=== PATIENT | female | born 1935 | race Caucasian/White ===

== ENCOUNTER 2017-10-06 14:00 | Outpatient (RCR) | payer MEDICARE, SELFPAY | END 2017-10-06 14:01 | disposition home or self-care (01) | LOC: PT 14:00 | PROVIDERS: PCP Emergency Medicine; Visit Provider Otolaryngology Otolaryngology/Facial Plastic Surgery | DX: R42 Dizziness and giddiness (principal) | CPT/HCPCS: 97110; 97140 ==

== ENCOUNTER → 2017-11-03 11:44 | Outpatient (REF) | payer MEDICARE, SELFPAY ==
[2017-11-03 13:58] LABS: Anion Gap 11.9 mEq/L (5-15); Blood Urea Nitrogen 11 mg/dL (7-18); Carbon Dioxide 30 mmol/L (21.0-32.0); Chloride 104 mmol/L (98-107); Creatinine,Serum 0.77 mg/dL (0.55-1.02); Estimated Glomerular Filt Rate 72 ml/min (>60); GFR (African American) 87 ML/MIN (>60); Glucose 94 mg/dL (74-106); Potassium 3.9 mmoL/L (3.5-5.1); Sodium 142 mmol/L (136-145)
== END ==
LOC: LAB 11:44
PROVIDERS: Visit Provider Emergency Medicine
DX: E78.5 Hyperlipidemia, unspecified (principal)
CPT/HCPCS: 80048

== ENCOUNTER → 2017-11-23 10:41 | Outpatient (REF) | payer MEDICARE, OTHER, SELFPAY | LOC: LAB 10:41 | PROVIDERS: Visit Provider Emergency Medicine | DX: R35.0 Frequency of micturition (principal) | CPT/HCPCS: 87086 ==

== ENCOUNTER → 2018-01-03 11:23 | Outpatient (REF) | payer MEDICARE, OTHER, SELFPAY ==
[2018-01-03 14:16] LABS: Basophils % 0.4 % (0.1-2.0); Eosinophils # 0.1 K/mm3 (0.0-0.4); Eosinophils % 2.9 % (0.1-12.0); Hematocrit 41.7 % (37.0-47.0); Hemoglobin 13.3 g/dL (12.2-16.2); Lymphocytes # 1.2 K/mm3 (0.7-4.5); Lymphocytes % 29.4 K/mm3 (10-50); Mean Corpuscular HGB Conc 31.8 g/dL (31.8-35.4); Mean Corpuscular Hemoglobin 29.6 pg (27.0-31.2); Mean Platelet Volume 9.8 fl (7.4-10.4); Monocytes # 0.3 K/mm3 (0.1-1.0); Monocytes % 7.5 % (1.7-9.3); Neutrophils # 2.5 K/mm3 (1.8-7.8); Neutrophils % 59.9 % (37.0-80.0); Platelet Count 160 K/mm3 (142-424); Red Blood Count 4.48 M/mm3 (4.20-5.40); Red Cell Distribution Width 13.5 % (11.5-17.5); White Blood Count 4.1 K/mm3 (4.8-10.8)
[2018-01-03 14:42] LABS: Alanine Aminotransferase 22 U/L (12-78); Albumin Level 3.5 gm/dL (3.4-5.0); Alkaline Phosphatase 79 U/L (46-116); Aspartate Amino Transferase 22 U/L (15-37); Bilirubin,Direct 0.1 mg/dL (0.0-0.2); Bilirubin,Indirect 0.5 mg/dL (0.0-0.9); Bilirubin,Total 0.6 mg/dL (0.2-1.0); Free T4 (Free Thyroxine) 1.44 ng/dl (0.76-1.46); Thyroid Stimulating Hormone 0.06 uIU/ml (0.358-3.740); Total Protein,Serum 7.2 gm/dL (6.4-8.2)
[2018-01-04 09:02] LABS: Vitamin D 25 Hydroxy 21.5 ng/mL (30.0-100.0)
== END ==
LOC: LAB 11:23
PROVIDERS: Visit Provider Emergency Medicine
DX: I16.1 Hypertensive emergency (principal); R07.9 Chest pain, unspecified; R53.1 Weakness; R30.0 Dysuria; E78.5 Hyperlipidemia, unspecified
CPT/HCPCS: 80076; 82652; 84439; 84443; 85025; 87086

== ENCOUNTER → 2018-03-28 11:08 | Outpatient (CLI) | payer MEDICARE, OTHER, SELFPAY ==
[2018-03-28 11:56] LABS: Basophils % 0.3 % (0.1-2.0); Eosinophils # 0.3 K/mm3 (0.0-0.4); Eosinophils % 4.6 % (0.1-12.0); Hematocrit 41.5 % (37.0-47.0); Hemoglobin 13.5 g/dL (12.2-16.2); Lymphocytes # 1.4 K/mm3 (0.7-4.5); Lymphocytes % 25.3 K/mm3 (10-50); Mean Corpuscular HGB Conc 32.5 g/dL (31.8-35.4); Mean Corpuscular Hemoglobin 29.7 pg (27.0-31.2); Mean Corpuscular Volume 91.5 fl (81-99); Mean Platelet Volume 8.4 fl (7.4-10.4); Monocytes # 0.3 K/mm3 (0.1-1.0); Monocytes % 5.5 % (1.7-9.3); Neutrophils # 3.5 K/mm3 (1.8-7.8); Neutrophils % 64.2 % (37.0-80.0); Platelet Count 185 K/mm3 (142-424); Red Blood Count 4.54 M/mm3 (4.20-5.40); Red Cell Distribution Width 13.3 % (11.5-17.5); White Blood Count 5.5 K/mm3 (4.8-10.8)
[2018-03-28 13:06] LABS: Erythrocyte Sedimentation Rate 48 mm/hr (0-30)
[2018-03-28 13:12] LABS: Alanine Aminotransferase 19 U/L (12-78); Albumin Level 3.4 gm/dL (3.4-5.0); Albumin/Globulin Ratio 0.9 (1.1-1.8); Alkaline Phosphatase 107 U/L (46-116); Anion Gap 9.9 mEq/L (5-15); Aspartate Amino Transferase 18 U/L (15-37); Bilirubin,Total 0.6 mg/dL (0.2-1.0); Blood Urea Nitrogen 10 mg/dL (7-18); Calcium 8.9 mg/dL (8.5-10.1); Carbon Dioxide 32 mmol/L (21.0-32.0); Chloride 105 mmol/L (98-107); Creatinine,Serum 0.79 mg/dL (0.55-1.02); Estimated Glomerular Filt Rate 70 ml/min (>60); GFR (African American) 85 ML/MIN (>60); Globulin 3.9 gm/dl (1.3-3.2); Glucose 121 mg/dL (74-106); Potassium 3.9 mmoL/L (3.5-5.1); Sodium 143 mmol/L (136-145); Thyroid Stimulating Hormone 0.94 uIU/ml (0.358-3.740); Total Protein,Serum 7.3 gm/dL (6.4-8.2)
[2018-03-29 13:26] LABS: Anti-Jo-1 <0.2 AI (0.0-0.9); Anti-Smith Antibody <0.2 AI (0.0-0.9); Antichromatin Antibodies <0.2 AI (0.0-0.9); Antiscleroderma-70 Antibodies <0.2 AI (0.0-0.9); RNP Antibodies 0.2 AI (0.0-0.9); Sjogren's Anti-SS-A <0.2 AI (0.0-0.9); Sjogren's Anti-SS-B <0.2 AI (0.0-0.9)
[2018-03-30 16:48] LABS: Anti-Centromere B Antibodies <0.2 AI (0.0-0.9); Anti-DNA (DS) Ab Qn <1 IU/mL (0-9); Folate 8.5 ng/mL (>3.0); Rapid Plasma Reagin Ab Titer Non Reactive (NonRea<1:1); Vitamin B12 >2000 pg/mL (232-1245)
== END ==
PROVIDERS: PCP Emergency Medicine; Visit Provider Specialist
DX: E85.4 Organ-limited amyloidosis (principal); I63.9 Cerebral infarction, unspecified; I68.0 Cerebral amyloid angiopathy; I99.8 Other disorder of circulatory system; R41.3 Other amnesia
CPT/HCPCS: 36415; 80053; 82607; 82746; 84443; 85025; 85651; 86225; 86235; 86592

== ENCOUNTER → 2018-04-13 15:35 | Outpatient (REF) | payer MEDICARE, OTHER, SELFPAY | LOC: LAB 15:35 | PROVIDERS: Visit Provider Nurse Practitioner Family | DX: N39.0 Urinary tract infection, site not specified (principal) | CPT/HCPCS: 87086 ==

== ENCOUNTER → 2018-04-19 08:38 | Outpatient (CLI) | payer MEDICARE, OTHER, SELFPAY ==
--- NOTE | 2018-04-19 08:40 | MR_ITS ---
MR angio head wo con HISTORY: Seizure, brain bleed, ITS.REASON: cva, cervical amyloid angiopathy ORDERING PHYSICIAN: Dalia Abdul MD PATIENT AGE: 82 years Comparison: None TECHNIQUE: 3-D kyct-hy-nntuvr sequences are performed without contrast. FINDINGS: No aneurysm or arteriovenous malformation is evident. Temporal parietal branches of the left artery are not demonstrated activity due to occlusion or very slow flow. The patient's old infarctions are right side. Single shot MRV is unremarkable. IMPRESSION: 1. No evidence of aneurysm or arterial venous malformation. 2. Nonvisualization of temporoparietal branches of the left middle cerebral artery which could be due to occlusion or very slow flow
--- NOTE | 2018-04-19 08:40 | MR_ITS ---
MR head/brain wo con HISTORY: Seizure disorder, history of stroke, history of brain bleed ITS.REASON: cva, cervical amyloid angiopathy ORDERING PHYSICIAN: Dalia Abdul MD PATIENT AGE: 82 years Comparison: 10/30/2017, 01/04/2014 TECHNIQUE: Standard multiplanar multiecho sequences are performed without contrast. FINDINGS: No midline shift, mass effect, intracranial hemorrhage, or hydrocephalus is evident. Moderate periventricular ischemic gliotic changes are noted. Encephalomalacia change is present in the right temporal lobe and in the right frontal lobe cystic encephalomalacia in the right frontal lobe medially. Diffusion-weighted images show no evidence of acute infarction.. The cerebellopontine angle, cerebellum, and brainstem are unremarkable. There is a small amount fluid in the mastoid sinuses on both sides. No paranasal sinus air-fluid level evident. IMPRESSION: 1. Atrophy with chronic ischemic gliotic changes with encephalomalacia change of the right frontal lobe and right temporal lobe 2. No acute intracranial findings. 3. Mild mastoid sinus disease
== END ==
PROVIDERS: PCP Emergency Medicine; Visit Provider Specialist
DX: E85.4 Organ-limited amyloidosis (principal); I63.9 Cerebral infarction, unspecified; I68.0 Cerebral amyloid angiopathy; I99.8 Other disorder of circulatory system; R41.3 Other amnesia
CPT/HCPCS: 70544; 70551

== ENCOUNTER → 2018-05-30 08:36 | Outpatient (CLI) | payer MEDICARE, OTHER, SELFPAY ==
--- NOTE | 2018-05-30 08:39 | CA_ITS ---
PROCEDURE: 2-D M-mode and color Doppler study INDICATIONS FOR THE TEST: Chest pain COPD Heart Murmur Tobacco Smoking Palpitations Fatigue Syncope Edema HypertensionXDiabetes Mellitus Rheumatic Fever SOB ZULETA Obesity HyperlipidemiaX Family History HD Additional History CAD,JAREK PATIENT INFORMATION HEIGHT: 60 WEIGHT:129 GENDER: Female B/P:168/75 2-D/M-MODE INTERPRETATION: 2-D MEASUREMENTS OBSERVED VALUES IN CMS Right Ventricular Dimension (RVDd) 2.7 Interventricular Septum (Thickness)(IVsd) .9 Left Ventricular Internal Dimensions(LVIDd) 4.6 Left Ventricular Posterior Wall (Thickness)(LVPWd) 1.0 Aortic Root 2.9 Aortic Cusp Separation 1.3 Left Atrial Dimensions (LAD) 3.3 2D 1. Left atrium is mildly enlarged, left ventricle is normal size, there is mild qualitative concentric left ventricular hypertrophy, visually estimated ejection fraction of 55% with no regional wall motion abnormality. 2. The right atrium and right ventricle are mildly enlarged with normal contractility. 3. The aortic valve is minimally thickened and fibrosed. 4. The mitral and tricuspid valve leaflets are minimally thickened. 5. The pulmonic valve is poorly visualized. 6. No significant pericardial effusion noted. DOPPLER INTERROGATION: Doppler interrogation of the aortic, mitral and tricuspid valvular presence of mild mitral and tricuspid regurgitation, tricuspid regurgitation jet velocity is inadequate for calculation of the right ventricular systolic pressure. Grade 1 diastolic dysfunction seen with tissue Doppler evidence of raised left atrial pressure. CONCLUSION: 1. Mildly enlarged left atrium, normal left ventricular size, mild concentric left ventricular hypertrophy, visually estimated ejection fraction 55% with no regional wall motion abnormality, grade 1 diastolic dysfunction seen with tissue Doppler evidence of raised left atrial pressure. 2. Mild mitral and tricuspid regurgitation 3. No significant pericardial effusion noted.
== END ==
PROVIDERS: PCP Emergency Medicine; Visit Provider Internal Medicine
DX: H91.93 Unspecified hearing loss, bilateral; I11.9 Hypertensive heart disease without heart failure; I25.10 Atherosclerotic heart disease of native coronary artery without angina pectoris; I61.9 Nontraumatic intracerebral hemorrhage, unspecified; Z95.5 Presence of coronary angioplasty implant and graft; E78.49 Other hyperlipidemia
CPT/HCPCS: 93306

== ENCOUNTER → 2018-05-31 18:13 | Outpatient (CLI) | payer MEDICARE, OTHER, SELFPAY | PROVIDERS: Visit Provider Nurse Practitioner Family | DX: N39.0 Urinary tract infection, site not specified (principal) | CPT/HCPCS: 87077; 87086; 87088; 87186 ==

== ENCOUNTER → 2018-07-26 20:15 | Outpatient (CLI) | payer MEDICARE, OTHER, SELFPAY | PROVIDERS: Visit Provider Urology | DX: N39.0 Urinary tract infection, site not specified (principal); R31.9 Hematuria, unspecified | CPT/HCPCS: 87086 ==

== ENCOUNTER → 2018-09-12 18:22 | Outpatient (CLI) | payer MEDICARE, OTHER, SELFPAY | PROVIDERS: Visit Provider Physician Assistant | DX: N39.0 Urinary tract infection, site not specified (principal) | CPT/HCPCS: 87086 ==

== ENCOUNTER → 2018-10-21 11:11 | Outpatient (CLI) | payer MEDICARE, OTHER, SELFPAY ==
--- NOTE | 2018-10-21 11:14 | NM_ITS ---
CARDIOLITE SPECT MYOCARDIAL PERFUSION LEXISCAN, REST AND STRESS: [facility] REVIEW QGS EF AND WALL MOTION EVALUATION: QPS - PERFUSION EVALUATION HISTORY: CAD DOSE: 10.17 mCi technetium 99m mibi intravenously at rest followed by 32.8 mCi technetium 99m mibi following the intravenous ministration of 0.4 mg of Lexiscan. Resting blood pressure is 217/112. Stress blood pressure 142/75. FINDINGS: Ejection fraction is calculated to be 67%. Uniform myocardial activity at both stress and rest gated images calculated ejection fraction of 67% with normal wall motion IMPRESSION: No scintigraphic evidence of Lexiscan-induced myocardial ischemia normal ejection fraction normal wall motion
--- NOTE | 2018-10-21 13:46 | HMH.ITSHM ---
Current Home Medications as stated by this patient Deedee Dhillon or business process representative. []ASPIRIN LEVETIRACETAM CARVEDILOL OXYBUTYNIN ATORVASTATIN DONEPEZIL LOSARTAN NITROGLYCERINE
== END ==
PROVIDERS: PCP Emergency Medicine; Visit Provider Internal Medicine Cardiovascular Disease
DX: G47.33 Obstructive sleep apnea (adult) (pediatric); H91.93 Unspecified hearing loss, bilateral; I11.9 Hypertensive heart disease without heart failure; I25.10 Atherosclerotic heart disease of native coronary artery without angina pectoris; I61.9 Nontraumatic intracerebral hemorrhage, unspecified; R06.00 Dyspnea, unspecified; R42 Dizziness and giddiness; R55 Syncope and collapse; Z95.5 Presence of coronary angioplasty implant and graft; E78.49 Other hyperlipidemia
CPT/HCPCS: 78452; 93017; A9502; J2785

== ENCOUNTER → 2018-11-11 09:18 | Outpatient (CLI) | payer MEDICARE, OTHER, SELFPAY ==
[2018-11-11 11:11] LABS: Anion Gap 12.7 mEq/L (5-15); Blood Urea Nitrogen 9 mg/dL (7-18); Calcium 8.9 mg/dL (8.5-10.1); Carbon Dioxide 30 mmol/L (21.0-32.0); Chloride 103 mmol/L (98-107); Creatinine,Serum 0.75 mg/dL (0.55-1.02); Estimated Glomerular Filt Rate 74 ml/min (>60); GFR (African American) 90 ML/MIN (>60); Glucose 104 mg/dL (74-106); Potassium 3.7 mmoL/L (3.5-5.1); Sodium 142 mmol/L (136-145)
== END ==
PROVIDERS: Visit Provider Internal Medicine Cardiovascular Disease
DX: E78.5 Hyperlipidemia, unspecified (principal); G47.33 Obstructive sleep apnea (adult) (pediatric); H91.90 Unspecified hearing loss, unspecified ear; I11.9 Hypertensive heart disease without heart failure; I25.10 Atherosclerotic heart disease of native coronary artery without angina pectoris; I61.9 Nontraumatic intracerebral hemorrhage, unspecified; Z95.5 Presence of coronary angioplasty implant and graft
CPT/HCPCS: 36415; 80048

== ENCOUNTER → 2018-12-13 18:21 | Outpatient (CLI) | payer MEDICARE, OTHER, SELFPAY | PROVIDERS: Visit Provider Nurse Practitioner Family | DX: N39.0 Urinary tract infection, site not specified (principal); R82.998 Other abnormal findings in urine | CPT/HCPCS: 87086 ==

== ENCOUNTER → 2019-03-31 16:49 | Outpatient (CLI) | payer MEDICARE, OTHER, SELFPAY | PROVIDERS: Visit Provider Emergency Medicine | DX: N39.0 Urinary tract infection, site not specified (principal) | CPT/HCPCS: 87086 ==

== ENCOUNTER → 2019-09-22 13:50 | Outpatient (CLI) | payer MEDICARE, OTHER, SELFPAY | PROVIDERS: Visit Provider Emergency Medicine | DX: N39.0 Urinary tract infection, site not specified (principal) | CPT/HCPCS: 87086 ==

== ENCOUNTER → 2020-01-16 16:13 | Outpatient (CLI) | payer MEDICARE, OTHER, SELFPAY ==
--- NOTE | 2020-01-16 16:36 | ECG_ITS ---
APPROVED REPORT Exam: Resting ECG HR:62 bpm ECG Measurements Heart Rate 62 AXES MI 210 P 43 QRSd 74 QRS -21 QT 466 T 43 QTc 472 <Conclusion> Sinus rhythm with marked sinus arrhythmia with 1st degree AV block Minimal voltage criteria for LVH, may be normal variant Prolonged QT Abnormal ECG Electronically signed by : Alex Cordova, 01/19/2020 17:13:52
[2020-01-16 16:52] LABS: Basophils % 0.4 % (0.1-2.0); Eosinophils # 0.2 K/mm3 (0.0-0.4); Eosinophils % 3.8 % (0.1-12.0); Hematocrit 38.4 % (37.0-47.0); Hemoglobin 13.2 g/dL (12.2-16.2); Lymphocytes # 2.1 K/mm3 (0.7-4.5); Lymphocytes % 39.7 % (10-50); Mean Corpuscular HGB Conc 34.2 g/dL (31.8-35.4); Mean Corpuscular Hemoglobin 31.4 pg (27.0-31.2); Mean Corpuscular Volume 91.9 fl (81-99); Mean Platelet Volume 8.8 fl (7.4-10.4); Monocytes # 0.3 K/mm3 (0.1-1.0); Monocytes % 5.1 % (1.7-9.3); Neutrophils # 2.7 K/mm3 (1.8-7.8); Platelet Count 198 K/mm3 (142-424); Red Blood Count 4.18 M/mm3 (4.20-5.40); Red Cell Distribution Width 13.4 % (11.5-17.5); White Blood Count 5.4 K/mm3 (4.8-10.8)
[2020-01-16 18:09] LABS: Anion Gap 11.4 mEq/L (5-15); Blood Urea Nitrogen 13 mg/dl (7-17); Calcium 9.5 mg/dl (8.4-10.2); Carbon Dioxide 34 mmol/L (22.0-30.0); Chloride 98 mmol/L (98-107); Estimated Glomerular Filt Rate 69 ml/min (>60); GFR (African American) 83 ML/MIN (>60); Glucose 108 mg/dl (74-100); Potassium 3.4 mmoL/L (3.5-5.1); Sodium 140 mmol/L (136-145)
[2020-01-16 20:06] LABS: Coronavirus 19 IgG Antibody Negative (Negative); Coronavirus 19 IgM Antibody Negative (Negative)
== END ==
PROVIDERS: Visit Provider Otolaryngology
DX: Z01.818 Encounter for other preprocedural examination (principal); C76.0 Malignant neoplasm of head, face and neck
CPT/HCPCS: 36415; 80048; 85025; 86328; 93005

== ENCOUNTER 2020-01-18 07:16 | Day surgery (SDC) | payer MEDICARE, OTHER, SELFPAY ==
[2020-01-18 08:14] VITALS: BMI 25.4
[2020-01-18 08:15] VITALS: BP 176/88; PULSE 90; RESP 20; TEMP 36.2; O2SAT 97
[2020-01-18 10:08] VITALS: BP 152/75; PULSE 55; RESP 16; TEMP 36.4; O2SAT 100
--- NOTE | 2020-01-18 10:14 | P.PN_ITS ---
[facility] Anesthesia Checklist - Patient Identification Patient Identification: Arm Band - Structural Data Admitted From: Home Planned Operative Procedure/s: excision of nose lesion Consent for Planned Operative Procedure(s) Verified: Yes Verified Documents: Surgical Consent, History and Physical - NPO Status Verified Time NPO: 00:00 - Additional verifications Anesthesia Reactions: No Hx Blood Transfusions: No Blood Transfusion Reaction: No - Airway Assessment C-Spine Mobility Assessed: Yes (mp2) TMJ Mobility Assessed: Yes - Neurological Assessment Level of Consciousness: Awake, Alert - Anesthesia Plan Anesthesia Risk discussed: Yes Anesthesia Plan: Verified ASA Class: III Anesthesia Type: MAC [facility] History I have reviewed the patient's past medical history: Yes Medical History: Reports:: Cancer (nose skin ca), Coronary Artery Disease, Cerebrovascular Accident, Hyperlipidemia, Hypertension, Transient Ischemic Attacks (TIA), Urinary Tract Infection Denies:: Diabetes Mellitus Type 1, Diabetes Mellitus Type 2, Internal Pacemaker, MRSA, Seizures *Have you ever received a pneumonia vaccine?: No *Have you received a flu vaccine this season?: No Other Medical History: Reports: Hypothyroidism, Thyroid Disease. Denies: Blood Transfusion Reaction Anesthesia experience/problems:: nac Laterality Cases: Bilateral: Arthroscopy Knee, Total Hip Replacement Other Surgeries: Yes: Angioplasty, Cardiac Catheterization, Colonoscopy, Coronary Stent, Ureter Stent, Other. No: Pacemaker Amputation: No Fractures: No - *Social History Last grade of school completed: High school graduate Smoking Status: Never smoker Alcohol Intake: never Alcohol Intake Frequency:: other Substance Use Type: denies use *Occupational Status:: retired Housing: house Household Members: none *Travel in the last 8 weeks: Inside the [place] Family Hx:: No significant family history
[2020-01-18 10:23] VITALS: BP 142/74; PULSE 54; RESP 16; O2SAT 99
[2020-01-18 10:38] VITALS: BP 138/68; PULSE 60; RESP 16; O2SAT 99
--- NOTE | 2020-01-18 15:29 | P.OP_ITS ---
Date of procedure: 01/18/20 Pre-op Diagnosis:: 1. 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 Excision of malignant neoplasm nose with tissue rearrangement geometric plastic repair Surgeon:: Drew Friend MD [employer] SUPERVISOR:: Javi Marrero Anesthesia: MAC Estimated blood loss (mL): 2 Operative findings:: same Operative note:: With patient under MAC type of anesthetic the face was prepped and draped the eyes were protected with Steri-Strips. The perilesional area was infiltrated with 2 cc of 2% lidocaine containing epinephrine. The Mike out measured 1.5 cm the mike out was incised and the lesion was excised and submitted. Inferior and inferior incisions were made and a tissue rearrangement Z-plasty repair was done with interrupted 4-0 nylon sutures a Dermabond dressing was applied and the patient was sent to recovery in good general condition. Condition: stable Disposition: PACU Complications:: none
== END 2020-01-18 10:38 | disposition home or self-care (01) ==
PROVIDERS: PCP Emergency Medicine; Visit Provider Otolaryngology
PROC: (CPT 14060; principal; 2020-01-18 10:30)
DX: C44.311 Basal cell carcinoma of skin of nose; I10 Essential (primary) hypertension; Z96.21 Cochlear implant status; Z85.828 Personal history of other malignant neoplasm of skin; I25.10 Atherosclerotic heart disease of native coronary artery without angina pectoris; E78.5 Hyperlipidemia, unspecified; Z86.73 Personal history of transient ischemic attack (TIA), and cerebral infarction without residual deficits; E03.9 Hypothyroidism, unspecified; Z96.649 Presence of unspecified artificial hip joint; Z95.818 Presence of other cardiac implants and grafts; Z79.82 Long term (current) use of aspirin; Z79.899 Other long term (current) drug therapy
CPT/HCPCS: 14060; 88305; 96374; 96375

== ENCOUNTER 2020-02-07 06:33 | Inpatient (IN) | payer MEDICARE, OTHER, SELFPAY ==
[2020-02-07] VITALS (12 sets, daily range): BP systolic 137–201; BP diastolic 76–106; PULSE 58–89; RESP 14–18; TEMP 36.7–37.4; O2SAT 92–99; BMI 20.9; BMI 27.1
--- NOTE | 2020-02-07 06:26 | ECG_ITS ---
APPROVED REPORT Exam: Resting ECG HR:57 bpm ECG Measurements Heart Rate 57 AXES LA 206 P 50 QRSd 74 QRS -14 QT 480 T 60 QTc 467 <Conclusion> Sinus bradycardia Otherwise normal ECG Electronically signed by : Alex Cordova, 02/10/2020 08:35:36
--- NOTE | 2020-02-07 06:36 | HMH.EDGENADL ---
ED Disposition Condition on Discharge: Good - Critical Care Critical Care Time: No <CarleyDonald - Filed: 02/07/20 08:08> Condition on Discharge: Good Time of Disposition: 09:49 (Admitted to Dr. Smith covering for Dr. Otero) <Donald Linder - Last Filed: 02/07/20 09:53> Clinical Impression: Abdominal pain, generalized, Small bowel obstruction, partial, HTN (hypertension) Disposition: Admitted As Inpatient Referrals: Jim Otero MD [Primary Care Provider] - Attestation: On 02/07/20, the high probability of a clinically significant, sudden or life threatening deterioration of the following system(s) required my full and direct attention, intervention and personal management. The time I documented below is in addition to time spent performing reported procedures but includes the following listed in this critical care notation. Medical Decision Making - José Inquiry Pt receiving controlled substance: Yes José was queried for this patient: No Reason not queried -: Emergent pt cond-no time Risks and benefits of using a controlled substance: were not discussed with pt by me - Lab Data Result diagrams: 02/07/20 06:35 02/07/20 06:35 - Radiology Data #1 Image(s): Chest Image Reviewed: Yes I reviewed the patient's radiology image Preliminary Findings: Normal/NAD - MARY Score for Non-Stemi Age of Patient: 80-89 years old Heart Rate: 50-69 bpm Systolic Blood Pressure: 200 mmhg or higher CHF [place] Class: I-No CHF Other Risk Factors: None <CarleyDonald - Filed: 02/07/20 08:08> - Lab Data Result diagrams: 02/07/20 06:35 02/07/20 06:35 - CT Data CT Scan: Abdomen, Pelvis Time Received: 09:47 - Reevaluation(s) Time: 09:40 <KailashDonald - Filed: 02/07/20 09:53> Vital Signs: 02/07/20 06:34 02/07/20 06:55 02/07/20 07:03 Temperature Source Oral Pulse Rate [Left Radial] 63 Pulse Rate [Right Brachial] 58 L 66 65 Respiratory Rate 16 17 Blood Pressure [Left Arm] 180/89 H Blood Pressure [Right Arm] 201/92 H 170/96 H 191/85 H Blood Pressure Mean [Left Arm] 119 Blood Pressure Mean [Right Arm] 128 120 120 Blood Pressure Source [Right Arm] Automatic Cuff Automatic Cuff Blood Pressure Position [Left Arm] Sitting Blood Pressure Position [Right Arm] Sitting Sitting 02 Sat by Pulse Oximetry 98 94 L Oxygen Delivery Method Room Air Room Air 02/07/20 08:09 02/07/20 08:34 Temperature Source Pulse Rate [Left Radial] 65 Pulse Rate [Right Brachial] Respiratory Rate Blood Pressure [Left Arm] 176/106 H 163/76 H Blood Pressure [Right Arm] Blood Pressure Mean [Left Arm] 129 105 Blood Pressure Mean [Right Arm] Blood Pressure Source [Right Arm] Blood Pressure Position [Left Arm] Sitting Blood Pressure Position [Right Arm] 02 Sat by Pulse Oximetry Oxygen Delivery Method - Lab Data Lab Results 02/07/20 06:35: WBC 6.0, RBC 4.63, Hgb 14.8, Hct 41.7, MCV 90.3, MCH 32.1 H, MCHC 35.5 H, RDW 13.5, Plt Count 218, MPV 8.4, Neut % (Auto) 54.2, Lymph % (Auto) 36.8, [place] % (Auto) 5.2, Eos % (Auto) 3.0, Baso % (Auto) 0.8, Neut # (Auto) 3.3, Lymph # (Auto) 2.2, [place] # (Auto) 0.3, Eos # (Auto) 0.2, Baso # (Auto) 0.1 02/07/20 06:35: Sodium 141, Potassium 3.1 L, Chloride 95 L, Carbon Dioxide 33 H, Anion Gap 16.1 H, BUN 14, Creatinine 0.80, Estimated Creat Clear 31, Estimated GFR 69, Est GFR ( Amer) 83, Glucose 136 H, Calcium 10.4 H, Total Bilirubin 0.7, Direct Bilirubin 0.1, Conjugated Bilirubin 0.0, Indirect Bilirubin 0.6, Unconjugated Bilirubin 0.6, AST 33, ALT 23, Alkaline Phosphatase 149 H, Troponin I < 0.01, Total Protein 8.9 H, Albumin 4.7, Amylase 100, Lipase 158 02/07/20 06:38: Urine Color Yellow, Urine Appearance Clear, Urine pH 8.0, Ur Specific [place] 1.010, Urine Protein Negative, Urine Glucose (UA) Negative, Urine Ketones Negative, Urine Blood 1+, Urine Nitrate Negative, Urine Bilirubin Negative, Urine Urobilinogen 0.2, Ur Leukocyte Est
--- NOTE | 2020-02-07 06:38 | XR_ITS ---
PROCEDURE: XR CHEST 2V CLINICAL HISTORY: cp Chest pain COMPARISON: CR CXR1 CHEST-PORTABLE from 06/30/2015 CR CXR1 CHEST-PORTABLE from 12/30/2015 CR CXR2 XR chest AP from 10/30/[address] ABDOMEN PELVIS W CON from 02/07/2020 FINDINGS: The cardiomediastinal silhouette and pulmonary vascularity are within normal limits. Indeterminate 7 mm nodule right lower lobe. The remaining lungs are clear. Loop recorder device noted over the anterior chest. No acute bony anomalies. IMPRESSION: Indeterminate right lower lobe nodule otherwise negative Dictated b Jai Sifuentes MD 02/07/2020 08:50 Jai Sifuentes MD in [place] 02/07/2020 08:50
--- NOTE | 2020-02-07 06:38 | CT_ITS ---
PROCEDURE: CT ABDOMEN PELVIS W CON CLINICAL INDICATION: abd pain Abdominal pain COMPARISON: MR [facility]/O MRI-L-SPINE W/O from 08/11/2016 TECHNIQUE: IV Contrast: 75ML OPTIRAY 350 Oral Contrast None Axial images obtained with sagittal and coronal reformats. All CT scans at the facility use one or more dose reduction, viz: automated exposure control, ma/kV adjustment per patient size (including targeted exams where dose is matched to indication, i.e. head), or iterative reconstruction technique. FINDINGS: LOWER THORAX: There is a 7 mm noncalcified nodule in the right lower lobe laterally which is indeterminate. Coronary artery calcifications are noted. ABDOMEN & PELVIS: The liver, spleen, adrenal glands, pancreas, gallbladder, has an unremarkable appearance. There are bilateral renal cysts measuring up to 4.7 cm on the right and 5.9 cm on the left. There is prominence of the right renal pelvis. No renal or ureteral calculi are evident. No evidence of appendicitis. There is colonic diverticulosis. No evidence of diverticulitis. There are fluid-filled loops of small bowel with scattered air-fluid levels. The small-bowel loops are slightly distended. There is a transition point in the small bowel in the left upper quadrant best detected on series 601, image 24. The small bowel decompressed distal to this region. Small bowel loops measure up to 3 cm in diameter. There also some fluid-filled loops of large bowel in the right colon with some air-fluid levels. Heterogeneous low-density material is noted within the endometrial area measuring up to 2.8 by 2.4 cm. This is abnormal. Nonemergent pelvic ultrasound suggested for further evaluation. There is mild wedging of T12 which was present on a previous MRI of 08/11/2016. Degenerative changes are present in the lumbar spine. IMPRESSION: 1. Partial small bowel obstruction with transition point in the left upper quadrant within the proximal to mid ileal region. 2. Mildly distended right colon with some air-fluid levels. It is possible that the above findings could be related to enterocolitis however, there does appear to be a transition point regarding the small-bowel dilatation which would argue against ileocolitis 3. Prominent heterogeneous slightly low-dense distension of the endometrial region of the uterus. Endometrial carcinoma would be considered. Consider nonemergent ultrasound for further evaluation 4. Indeterminate 7 mm right lower lobe nodule. Recommend six-month follow-up Dictated b Jai Sifuentes MD 02/07/2020 08:29 Jai Sifuentes MD in [place] 02/07/2020 08:29
[2020-02-07 06:54] LABS: Basophils # 0.1 K/mm3 (0-0.2); Basophils % 0.8 % (0.1-2.0); Eosinophils # 0.2 K/mm3 (0.0-0.4); Hematocrit 41.7 % (37.0-47.0); Hemoglobin 14.8 g/dL (12.2-16.2); Lymphocytes # 2.2 K/mm3 (0.7-4.5); Lymphocytes % 36.8 % (10-50); Mean Corpuscular HGB Conc 35.5 g/dL (31.8-35.4); Mean Corpuscular Hemoglobin 32.1 pg (27.0-31.2); Mean Corpuscular Volume 90.3 fl (81-99); Mean Platelet Volume 8.4 fl (7.4-10.4); Monocytes # 0.3 K/mm3 (0.1-1.0); Monocytes % 5.2 % (1.7-9.3); Neutrophils # 3.3 K/mm3 (1.8-7.8); Neutrophils % 54.2 % (37.0-80.0); Platelet Count 218 K/mm3 (142-424); Red Blood Count 4.63 M/mm3 (4.20-5.40); Red Cell Distribution Width 13.5 % (11.5-17.5)
[2020-02-07 06:58] LABS: Alanine Aminotransferase 23 U/L (12-78); Albumin Level 4.7 g/dl (3.5-5.0); Alkaline Phosphatase 149 U/L (38-126); Amylase 100 U/L (30-110); Anion Gap 16.1 mEq/L (5-15); Aspartate Amino Transferase 33 U/L (14-36); Bilirubin,Direct 0.1 mg/dl (0.0-0.4); Bilirubin,Indirect 0.6 mg/dL (0.0-0.9); Bilirubin,Total 0.7 mg/dl (0.2-1.3); Bilirubin,Unconjugated 0.6 mg/dL (0.0-1.1); Blood Urea Nitrogen 14 mg/dl (7-17); Calcium 10.4 mg/dl (8.4-10.2); Carbon Dioxide 33 mmol/L (22.0-30.0); Chloride 95 mmol/L (98-107); Creatinine Clearance Estimated 31 mL/min (50-200); Estimated Glomerular Filt Rate 69 ml/min (>60); GFR (African American) 83 ML/MIN (>60); Glucose 136 mg/dl (74-100); Lipase 158 U/L (23-300); Potassium 3.1 mmoL/L (3.5-5.1); Sodium 141 mmol/L (136-145); Total Protein,Serum 8.9 g/dl (6.3-8.2)
[2020-02-07 07:11] LABS: Troponin I < 0.01 ng/ml (0.00-0.034)
[2020-02-07 08:13] LABS: Microscopic, Urine URINE MICROSCOPIC (MICROSCOPIC)
[2020-02-07 08:15] LABS: Appearance,Urine CLEAR (Clear); Bilirubin,Urine Negative (Negative); Blood, Urine 1+ (Negative); Color,Urine YELLOW (Yellow); Glucose,Urine (UA) Negative (Negative); Ketones,Urine Negative (Negative); Leukocyte Esterase,Urine TRACE (Negative); Nitrate,Urine Negative (Negative); Protein,Urine Negative (Negative); Urobilinogen,Urine 0.2 EU/dl (0.2)
--- NOTE | 2020-02-07 08:15 | PC.NURSE ---
pt continues to c/o pain
--- NOTE | 2020-02-07 08:30 | PC.NURSE ---
pt c/o pain with minimal relief of medications given
[2020-02-07 08:37] LABS: Squamous Epithelial Cell,Urine Occasional #/hpf (0-5); WBC,Urine Occasional #/hpf (0-3)
--- NOTE | 2020-02-07 09:00 | PC.NURSE ---
pt and family updated on plan of care
--- NOTE | 2020-02-07 09:23 | PC.NURSE ---
waiting on a call back from dr. ahumada
--- NOTE | 2020-02-07 09:28 | PC.NURSE ---
FAVIAN SAHU speaking with Dr. Reeves
--- NOTE | 2020-02-07 09:30 | PC.NURSE ---
family at bedside updated on plan of care
--- NOTE | 2020-02-07 09:34 | PC.NURSE ---
FAVIAN SAHU speaking with Dr. Smith
--- NOTE | 2020-02-07 09:35 | PC.NURSE ---
pt continues to c/o pain no change with medications given
--- NOTE | 2020-02-07 09:56 | XR_ITS ---
PROCEDURE: XR CHEST PORTABLE CLINICAL HISTORY: NG placement COMPARISON: CR CXR1 CHEST-PORTABLE from 12/30/2015 CR CXR2 XR chest AP from 10/30/2017 CR XR CHEST 2V from 02/07/2020 FINDINGS: There is an NG tube present. The tube is curled in the region the fundus of the stomach with the tip near the cardia of the stomach. IMPRESSION: NG tube tip in the region the cardia the stomach Dictated b Jai Sifuentes MD 02/07/2020 10:20 Jai Sifuentes MD in [place] 02/07/2020 10:20
[2020-02-07 10:08] LABS: Adenovirus,PCR Not Detected (NotDetected); Bordetella Pertussis Not Detected (NotDetected); Chlamydophila Pneumoniae, PCR Not Detected (NotDetected); Coronavirus 19, PCR Not Detected (NotDetected); Coronavirus 229E Not Detected (NotDetected); Coronavirus NL63 Not Detected (NotDetected); Coronavirus OC43 Not Detected (NotDetected); Coronovirus HKU1,PCR Not Detected (NotDetected); Human Metapneumovirus Not Detected (NotDetected); Influenza A, PCR Not Detected (NotDetected); Influenza AH1, 2009 Not Detected (NotDetected); Influenza AH1, PCR Not Detected (NotDetected); Influenza AH3,PCR Not Detected (NotDetected); Influenza B, PCR Not Detected (NotDetected); Mycoplasma Pneumoniae, PCR Not Detected (NotDetected); Parainfluenza 1, PCR Not Detected (NotDetected); Parainfluenza 2, PCR Not Detected (NotDetected); Parainfluenza 3, PCR Not Detected (NotDetected); Parainfluenza 4, PCR Not Detected (NotDetected); Respiratory Syncytial Virus Not Detected (NotDetected); Rhinovirus/Enterovirus Not Detected (NotDetected)
[2020-02-07 11:18] LABS: Troponin I < 0.01 ng/ml (0.00-0.034)
--- NOTE | 2020-02-07 11:58 | HMH.GSCON ---
*Admission Date: 02/07/20 *Reason for consult:: Small bowel obstruction versus enterocolitis *History of present illness: This is an 84-year-old female seen in consultation after presenting to the emergency department with increasing abdominal pain. Evaluation included a CT scan that showed changes consistent with partial small bowel obstruction versus enterocolitis. The surgical service was consulted for further evaluation. Truncated HPI from emergency department evaluation is forwarded below. - History of Present Illness HPI narrative: Complains of generalized abdominal pain since 4 AM. No vomiting. No diarrhea. She took a laxative yesterday and tried a suppository today without relief. She does not know when her last bowel movement was. No fever. No chest pain. No radiation. No prior abdominal surgeries. (Donald Howe) Review of Systems - Constitutional Denies fever(s) - Eyes Denies discharge - ENT Reports abnormal hearing - *Cardiovascular Denies shortness of breath - *Respiratory Denies wheezing - *Gastrointestinal Reports abdominal pain, Reports nausea - *Genitourinary Denies painful urination - *Musculoskeletal Denies numbness - Integumentary/Breasts Denies bleeding lesions - *Neurologic Reports abnormal hearing - Psychiatric Denies anxiety - Endocrine Denies cold intolerance - Hematologic/Lymphatic Denies easy bleeding - Allergic/Immunologic Denies hives [facility] History Medical History: Reports:: Cancer (nose skin ca), Coronary Artery Disease, Cerebrovascular Accident, Hyperlipidemia, Hypertension, Transient Ischemic Attacks (TIA), Urinary Tract Infection Denies:: Diabetes Mellitus Type 1, Diabetes Mellitus Type 2, Internal Pacemaker, MRSA, Seizures *Have you ever received a pneumonia vaccine?: Yes *Have you received a flu vaccine this season?: Yes Other Medical History: Reports: Hypothyroidism, Thyroid Disease. Denies: Blood Transfusion Reaction Laterality Cases: Bilateral: Arthroscopy Knee, Total Hip Replacement Other Surgeries: Yes: No Previous Surgery, Angioplasty, Cardiac Catheterization, Colonoscopy, Coronary Stent, Ureter Stent, Other. No: Pacemaker Amputation: No Fractures: No - *Social History Smoking Status: Never smoker Alcohol Intake: never Alcohol Intake Frequency:: other Substance Use Type: denies use *Occupational Status:: retired Housing: house Household Members: none *Travel in the last 8 weeks: None Family Hx:: No significant family history Meds Home Medications Medication Instructions Recorded Confirmed Type aspirin 81 mg tablet,delayed 81 mg PO QDAY 07/09/17 02/07/20 History release vitamin B complex 1 tab PO QDAY 07/09/17 02/07/20 History cranberry 400 mg capsule 400 mg PO DAILY 06/06/18 02/07/20 History vitamin E (dl, acetate) 200 unit 200 unit PO DAILY 06/06/18 02/07/20 History capsule nitroglycerin 0.4 mg sublingual 0.4 mg SUBLINGUAL Q5M PRN #25 tab 07/19/18 02/07/20 Rx tablet atorvastatin 20 mg tablet 20 mg PO HS #90 tab 10/03/19 02/07/20 Rx losartan 100 mg tablet 50 mg PO DAILY tab 01/11/20 02/07/20 History Donepezil HCl [Aricept 10mg See Rx Instructions .ROUTE .COMPLEX 01/17/20 02/07/20 History tablet] Ergocalciferol (Vitamin D2) See Rx Instructions .ROUTE .COMPLEX 01/17/20 02/07/20 History [Drisdol] Levothyroxine Sodium [Synthroid See Rx Instructions .ROUTE .COMPLEX 01/17/20 02/07/20 History 50mcg (0.05mg) tab] Loratadine [Allergy Relief] 10 mg PO DAILY 01/17/20 02/07/20 History carvediloL [Carvedilol 3.125mg Tab] 3.125 mg PO BID 01/17/20 02/07/20 History levETIRAcetam [Levetiracetam] See Rx Instructions .ROUTE .COMPLEX 01/17/20 02/07/20 History oxybutynin chloride 5 mg tablet 5 mg PO BID #90 tab 01/19/20 02/07/20 Rx hydrochlorothiazide 12.5 mg tablet 12.5 mg PO DAILY #90 tab 01/22/20 02/07/20 Rx Allergies Allergy/AdvReac Type Severity Reaction Status Date / Time No Known Allergies Allergy Verifie
[2020-02-07 13:32] LABS: Troponin I < 0.01 ng/ml (0.00-0.034)
--- NOTE | 2020-02-07 13:41 | PC.NURSE ---
pt to rad at this time for sm bowel follow through.
--- NOTE | 2020-02-07 13:44 | HMH.PHAVTE ---
[facility] Pharmacy VTE Monitoring - Patient Demographics Admission date: 02/07/20 Report Date: 02/07/20 Time: 13:44 Allergies/Adverse Reactions: Patient Allergies No Known Allergies Allergy (Verified 02/07/20 06:45) Height: 1.47 m Weight: 45.359 kg Patient Problems: Current Active Problems (Last Updated 03/08/19 @ 13:43 by Indira Valdes RN) Abdominal pain, generalized (Acute) Small bowel obstruction, partial (Acute) HTN (hypertension) (Chronic) - VTE Risk Labs: VTE Related Lab Results Hgb 14.8 g/dL (12.2-16.2) 02/07/20 06:35 Hct 41.7 % (37.0-47.0) 02/07/20 06:35 Plt Count 218 K/mm3 (142-424) 02/07/20 06:35 BUN 14 mg/dl (7-17) 02/07/20 06:35 Creatinine 0.80 mg/dl (0.52-1.04) 02/07/20 06:35 Estimated Creat Clear 31 mL/min (50-200) 02/07/20 06:35 Was VTE Risk Assessment Performed: Yes VTE Score: 1 VTE Risk Level: Low Risk Clinical Trial Participant: No - Prophylaxis VTE Prophylaxis Ordered?: Yes Types of VTE Prophylaxis: TEDS Knee High
--- NOTE | 2020-02-07 13:49 | HMH.PHAINT ---
home medication reconciliation completed using list from home pharmacy
--- NOTE | 2020-02-07 20:27 | PC.NURSE ---
Pt alert and oriented and able to make needs known. Medicated with prn zofran and phenegran for dry heaves. Phenegran has helped a lot, no more dry heaves at this time. NG to LWS at this time continues. No c/o of pain. CB in reach. Pt [place], cochlear implant in use. VSS. Sm bowel follow through was attempted today and unsuccessful. PLans for trying again in the am per Dr Reeves and Dr Sifuentes per Ellen in Radiology.
[2020-02-08 04:00] VITALS: BP 166/79; PULSE 86; RESP 16; TEMP 37.3; O2SAT 94
[2020-02-08 05:00] VITALS: BMI 27.1
--- NOTE | 2020-02-08 05:52 | PC.NURSE ---
PT TRANSPORTED TO RADIOLOGY VIA WHEELCHAIR FOR ACUTE ABDOMEN SERIES.
--- NOTE | 2020-02-08 06:00 | XR_ITS ---
PROCEDURE: XR ACUTE ABDOMEN SERIES CLINICAL INDICATION: partial sbo . There is a mild amount of retained colonic COMPARISON: CT CT ABDOMEN PELVIS W CON from 02/07/2020 FINDINGS: There is a nasogastric tube present. The tube is curled distally at the region of the cardia of the stomach with the tip projecting at the GE junction area. There is mild left basilar atelectasis. The lungs are clear. Upright and supine views of the abdomen demonstrates improvement in the partial small bowel obstruction. CT scan of 02/07/2020 showed mildly distended small bowel loops which are no longer apparent. There is contrast present within the large bowel from recently attempted small-bowel follow-through. Contrast is also present in the urinary bladder. No free air IMPRESSION: Improvement of small-bowel obstruction. Nasogastric tube is curled at the GE junction with the tip at the distal esophageal region and should be advanced into the stomach. Dictated b Jai Sifuentes MD 02/08/2020 07:57 Jai Sifuentes MD in [place] 02/08/2020 07:57
--- NOTE | 2020-02-08 06:07 | PC.NURSE ---
Pt returned from radiology via wheelchair.
--- NOTE | 2020-02-08 06:33 | PC.NURSE ---
Dr. Reeves at bedside.
--- NOTE | 2020-02-08 06:44 | P.PN_ITS ---
Subjective Patient reports: pain is less, no flatus, no bowel movement Exam Vital signs and Labs for Last 24 Hours: Temp Pulse Resp BP Pulse Ox 99.2 F 86 16 166/79 H 94 L 02/08/20 04:00 02/08/20 04:00 02/08/20 04:00 02/08/20 04:00 02/08/20 04:00 Laboratory Results - last 24 hr 02/07/20 06:35: WBC 6.0, RBC 4.63, Hgb 14.8, Hct 41.7, MCV 90.3, MCH 32.1 H, MCHC 35.5 H, RDW 13.5, Plt Count 218, MPV 8.4, Neut % (Auto) 54.2, Lymph % (Auto) 36.8, [place] % (Auto) 5.2, Eos % (Auto) 3.0, Baso % (Auto) 0.8, Neut # (Auto) 3.3, Lymph # (Auto) 2.2, [place] # (Auto) 0.3, Eos # (Auto) 0.2, Baso # (Auto) 0.1 02/07/20 06:35: Sodium 141, Potassium 3.1 L, Chloride 95 L, Carbon Dioxide 33 H, Anion Gap 16.1 H, BUN 14, Creatinine 0.80, Estimated Creat Clear 31, Estimated GFR 69, Est GFR ( Amer) 83, Glucose 136 H, Calcium 10.4 H, Total Bilir ubin 0.7, Direct Bilirubin 0.1, Conjugated Bilirubin 0.0, Indirect Bilirubin 0.6, Unconjugated Bilirubin 0.6, AST 33, ALT 23, Alkaline Phosphatase 149 H, Troponin I < 0.01, Total Protein 8.9 H, Albumin 4.7, Amylase 100, Lipase 158 02/07/20 06:38: Urine Color Yellow, Urine Appearance Clear, Urine pH 8.0, Ur Specific [place] 1.010, Urine Protein Negative, Urine Glucose (UA) Negative, Urine Ketones Negative, Urine Blood 1+, Urine Nitrate Negative, Urine Bilirubin Negative, Urine Urobilinogen 0.2, Ur Leukocyte Esterase Trace, Urine WBC Occasional, Ur Squamous Epith Cells Occasional 02/07/20 10:00: Chlamy pneumoniae PCR Not detected, Adenovirus (PCR) Not detected, B. pertussis DNA (PCR) Not detected, Coronavirus OC43 (PCR) Not detected, Coronavirus HKU1 (PCR) Not detected, Coronavirus 229E (PCR) Not detected, COVID-19 PCR Not detected, Coronavirus NL63 (PCR) Not detected, Human Metapneumovir PCR Not detected, Influenza A (H1) PCR Not detected, Influ A (H1N1/09) PCR Not detected, Influenza A (H3) PCR Not detected, Influenza Type A (PCR) Not detected, Influenza Type B (PCR) Not detected, M. pneumoniae (PCR) Not detected, Parainfluenza 1 (PCR) Not detected, Parainfluenza 2 (PCR) Not detected, Parainfluenza 3 (PCR) Not detected, Parainfluenza 4 (PCR) Not detected, RSV (PCR) Not detected, Entero/Rhino (PCR) Not detected 02/07/20 10:01: Troponin I < 0.01 02/07/20 13:00: Troponin I < 0.01 I & O for Last 24 hours: Intake & Output 02/05/20 02/06/20 02/07/20 02/08/20 11:59 11:59 11:59 11:59 Output Total 100 / 100 Balance -100 / -100 Weight 129 lb 1.996 oz 129 lb 6.4 oz - Constitutional no acute distress - *Routine Respiratory Exam Absent: respiratory distress - *Routine Cardiovascular Exam Present: RRR - *Routine Abdominal Exam Present: soft Progress Note: A&P (1) Small bowel obstruction, partial Status: Acute Assessment and plan: improved pain. SBFT pending. AAS this AM improved. F/U pending SBFT serial exams Current Visit: Yes
[2020-02-08 08:00] VITALS: BP 171/77; PULSE 84; RESP 17; TEMP 36.9; O2SAT 98
--- NOTE | 2020-02-08 08:20 | PC.NURSE ---
A&OX4. PT HAS TOLERATED ROOM AIR WELL THROUGHOUT SHIFT. RESPIRATIONS REGULAR AND UNLABORED. LUNG SOUNDS BILATERALLY CLEAR. HAND WELLNESS EDUCATOR EQUAL. +2 PULSES NOTED THROUGHOUT. HEART RATE REGULAR. NG IN PLACE NOTED IN R NARE. MEASURED AT 64. HAS STAYED IN PLACE THROUGHOUT SHIFT. ON INTERMITTENT LOW WALL SUCTION. BROWNISH LIQUID CONTENTS NOTED. 150CC OUT THIS SHIFT. CHECKED FOR PLACEMENT PER AUSCULTATION. MEDS ADMINISTERED THROUGH NG TUBE. PT TOLERATED WELL. HYPOACTIVE BOWEL SOUNDS HEARD IN ALL 4 QUADRANTS. SOFT AND NONTENDER ABDOMEN. NO GAS OR BM REPORTED. PT VOIDS PER TOILET W STANDBY ASSISTANCE. PT TOLERATES WELL. CLEAR YELLOW URINE NOTED IN TOILET EACH TIME. PT HAS REMAINED NPO THROUGHOUT SHIFT. NO REPORTS OF PAIN OR NAUSEA THROUGHOUT SHIFT. PT HAS RESTED WELL THROUGHOUT SHIFT. CALL LIGHT WITHIN REACH. BED IN LOWEST POSITION. VSS. WILL CONTINUE TO MONITOR.
--- NOTE | 2020-02-08 08:52 | PC.NURSE ---
received call from Dr. Reeves. NG tube is slightly curled in distal esophagus. He requested for NG to be manipulated into the correct position. Pt is to go to radiology this morning for a bowel series. He gave the ok for radiology to manipulate NG tube under fluro. Called radiology (Billy) and informed her of Dr. Reeves's request.
--- NOTE | 2020-02-08 09:00 | FL_ITS ---
PROCEDURE: FL SMALL BOWEL FOLLOW THROUGH CLINICAL INDICATION: PARTIAL SBO VS ENTEROCOLITIS Abdominal pain and vomiting COMPARISON: No exams were available for comparison TECHNIQUE: FLUOROSCOPY TIME : 1 minutes 27 seconds FINDINGS: A mixture of barium and Gastrografin was instilled through the nasogastric tube and follow throughout the course of the small bowel. The tip of the nasogastric tube with situated to the pyloric/duodenal bulb region before the procedure began. Small bowel is nondistended. No obstructing lesions are evident. Previously noted dilated small bowel is no longer apparent. Spot views of the terminal ileum are unremarkable. IMPRESSION: Normal small bowel follow-through. No evidence of bowel obstruction. Dictated b Jai Sifuentes MD 02/08/2020 17:08 Jai Sifuentes MD in [place] 02/08/2020 17:08
--- NOTE | 2020-02-08 09:09 | HMH.HP ---
*Admission Date: 02/07/20 *Chief complaint: abd pain *History of present illness: 84-year-old female presented to the emergency department with increasing abdominal pain and nausea. Pt states her abd pain increased with vomiting. Pt c/o omplains of generalized abdominal pain since 4 AM. No vomiting or diarrhea. She took a laxative yesterday and tried a suppository yesterday without relief. She does not know when her last bowel movement was. Pt admitted for sbo and consult surgery and GI. [facility] History I have reviewed the patient's past medical history: Yes Medical History: Reports:: Cancer (nose skin ca), Coronary Artery Disease, Cerebrovascular Accident, Hyperlipidemia, Hypertension, Transient Ischemic Attacks (TIA), Urinary Tract Infection Denies:: Diabetes Mellitus Type 1, Diabetes Mellitus Type 2, Internal Pacemaker, MRSA, Seizures *Have you ever received a pneumonia vaccine?: No *Have you received a flu vaccine this season?: Yes Other Medical History: Reports: Hypothyroidism, Thyroid Disease. Denies: Blood Transfusion Reaction Laterality Cases: Bilateral: Arthroscopy Knee, Total Hip Replacement Other Surgeries: Yes: No Previous Surgery, Angioplasty, Cardiac Catheterization, Colonoscopy, Coronary Stent, Ureter Stent, Other. No: Pacemaker Amputation: No Fractures: No - *Social History Last grade of school completed: 11th or 12th Smoking Status: Never smoker Alcohol Intake: never Alcohol Intake Frequency:: other Substance Use Type: denies use *Occupational Status:: retired Housing: house Household Members: none *Travel in the last 8 weeks: None Family Hx:: No significant family history Review of Systems - Review of Systems Review of systems:: pertinent systems reviewed and negative unless documented below - Constitutional Denies body ache(s), Denies fatigue - Eyes Denies change in vision - ENT Denies bleeding gums - *Cardiovascular Denies chest pain at rest - *Respiratory Denies shortness of breath with activity - *Gastrointestinal Reports abdominal pain, Reports constipation, Reports nausea, Denies coffee ground vomit, Denies vomiting - *Genitourinary Denies abnormal vaginal bleeding, Denies vaginal discharge - *Musculoskeletal Denies decreased muscle mass - Integumentary/Breasts Denies change in hair, Denies rash - *Neurologic Reports abnormal hearing, Denies numbness - Psychiatric Denies change in sex drive - Endocrine Denies increased thirst - Hematologic/Lymphatic Denies enlarged lymph nodes - Allergic/Immunologic Denies itchy eyes Meds Home Medications Medication Instructions Recorded Confirmed Type aspirin 81 mg tablet,delayed 81 mg PO DAILY 07/09/17 02/07/20 History release vitamin B complex 1 tab PO QDAY 07/09/17 02/07/20 History cranberry 400 mg capsule 400 mg PO DAILY 06/06/18 02/07/20 History vitamin E (dl, acetate) 200 unit 200 unit PO DAILY 06/06/18 02/07/20 History capsule nitroglycerin 0.4 mg sublingual 0.4 mg SUBLINGUAL Q5M PRN #25 tab 07/19/18 02/07/20 Rx tablet atorvastatin 20 mg tablet 20 mg PO HS #90 tab 10/03/19 02/07/20 Rx losartan 100 mg tablet 50 mg PO DAILY tab 01/11/20 02/07/20 History Donepezil HCl [Aricept 10mg 10 mg PO HS 01/17/20 02/07/20 History tablet] Ergocalciferol (Vitamin D2) 1,250 mcg PO WEEKLY 01/17/20 02/07/20 History [Drisdol] Levothyroxine Sodium [Synthroid 50 mcg PO DAILY 01/17/20 02/07/20 History 50mcg (0.05mg) tab] Loratadine [Allergy Relief] 10 mg PO DAILY 01/17/20 02/07/20 History carvediloL [Carvedilol 3.125mg Tab] 3.125 mg PO BID 01/17/20 02/07/20 History levETIRAcetam [Levetiracetam] 500 mg PO BID 01/17/20 02/07/20 History oxybutynin chloride 5 mg tablet 5 mg PO BID #90 tab 01/19/20 02/07/20 Rx hydrochlorothiazide 12.5 mg tablet 12.5 mg PO DAILY #90 tab 01/22/20 02/07/20 Rx Allergies Allergy/AdvReac Type Severity Reaction Status Date / Time No Known Allergies Allergy Verified 02/07/20 06:45
--- NOTE | 2020-02-08 09:36 | PC.NURSE ---
to radiology for bowel series via wheelchair with Cristofer Lott. NG tube clamped. No complaints of nausea.
--- NOTE | 2020-02-08 12:00 | PC.NURSE ---
back from radiology. Spoke to Dr. Sifuentes, who reports that NG tube is located in the antrum and that the bowel series is negative.
--- NOTE | 2020-02-08 12:22 | PC.NURSE ---
NG tube locked at 68cm @ the nare
[2020-02-08 15:03] VITALS: BP 173/88; PULSE 90; RESP 17; TEMP 37.2; O2SAT 97
--- NOTE | 2020-02-08 15:44 | PC.NURSE ---
Pt A&O. VSS. Is able to get to bathroom with 1 person assist. No n/v this shift. NG tube to drain bag @ 1545. Continues to be NPO. Bowel sounds audible in left upper and right lower quadrants. NG tube placement is now 68cm @ nare per Dr. Sifuentes under fluro. Hx of seizures. Seizure pads remain on bed.
[2020-02-08 20:00] VITALS: BP 165/87; PULSE 91; RESP 20; TEMP 37.3; O2SAT 94
[2020-02-09 04:00] VITALS: BP 141/85; PULSE 85; RESP 16; TEMP 37.5; O2SAT 95
--- NOTE | 2020-02-09 04:06 | PC.NURSE ---
A&OX4. PT TOLERATING RA WELL T/O SHIFT. PT UP TO BATHROOM WITH STANDBY ASSIST THIS SHIFT. NG TUBE SECURED AT 68CM, CONNECTED TO DRAINAGE BAG. DRAINING WELL. PT HAS HAD NO C/O ANY NA/VO THIS SHIFT. PT ONLY C/O OF SORE THROAT X1 THIS SHIFT, TX WITH PRN THROAT SPRAY. PT HAS RESTED WELL T/O MAJORITY OF SHIFT. NO OTHER C/O THUS FAR, VSS WILL CONTINUE TO MONITOR.
[2020-02-09 05:23] VITALS: BMI 26.5
--- NOTE | 2020-02-09 06:00 | XR_ITS ---
PROCEDURE: XR ACUTE ABDOMEN SERIES CLINICAL INDICATION: partial sbo Follow-up partial small bowel obstruction COMPARISON: No exams were available for comparison FINDINGS: A frontal view of the chest shows no acute finding Nasogastric tube is present. The tip is in the region of the duodenal bulb area. Contrast is present within the colon from the recent small bowel series. No evidence of small-bowel obstruction. Degenerative changes are present in the lumbosacral junction of the spine. Other findings:None. IMPRESSION: NG tube tip in the region of the duodenal bulb. The NG tube could be withdrawn approximately 9 cm for gastric location. No evidence of small-bowel obstruction Dictated b Jai Sifuentes MD 02/09/2020 06:32 Jai Sifuentes MD in [place] 02/09/2020 06:32
--- NOTE | 2020-02-09 06:02 | PC.NURSE ---
PT HAS HAD 100ML OF DARK GREEN/BROWN DRAINAGE FROM DRAINAGE BAG THIS SHIFT.
--- NOTE | 2020-02-09 06:44 | HMH.GSPN ---
Subjective Patient reports: feels better, still having pain, flatus, no bowel movement Narrative: She states that she is no longer nauseous and feels just a little better . Exam Vital signs and Labs for Last 24 Hours: Temp Pulse Resp BP Pulse Ox 99.5 F 85 16 141/85 H 95 02/09/20 04:00 02/09/20 04:00 02/09/20 04:00 02/09/20 04:00 02/09/20 04:00 I & O for Last 24 hours: Intake & Output 02/06/20 02/07/20 02/08/20 02/09/20 11:59 11:59 11:59 11:59 Intake Total 0 / 0 0 / 0 Output Total 250 / 250 350 / 350 Balance -250 / -250 -350 / -350 Weight 129 lb 1.996 oz 129 lb 6.4 oz 126 lb 7 oz Radiology Reports for the Last 24 Hours: SBFT 02/08/20: FINDINGS: A mixture of barium and Gastrografin was instilled through the nasogastric tube and follow throughout the course of the small bowel. The tip of the nasogastric tube with situated to the pyloric/duodenal bulb region before the procedure began. Small bowel is nondistended. No obstructing lesions are evident. Previously noted dilated small bowel is no longer apparent. Spot views of the terminal ileum are unremarkable. IMPRESSION: Normal small bowel follow-through. No evidence of bowel obstruction. - Constitutional no acute distress - *Routine Respiratory Exam Absent: respiratory distress - *Routine Cardiovascular Exam Present: RRR - *Routine Abdominal Exam Present: soft. Absent: distended Progress Note: A&P (1) Small bowel obstruction, partial Status: Acute Assessment and plan: No bowel obstruction noted on small bowel follow-through completed yesterday. No sign of obstruction on plain films from this morning. She states that she is no longer nauseous and has passed flatus on one occasion. DC NG Trial of clear liquids Current Visit: Yes
[2020-02-09 08:00] VITALS: BP 140/87; PULSE 90; RESP 17; TEMP 36.9; O2SAT 94
--- NOTE | 2020-02-09 08:04 | PC.NURSE ---
NG tube discontinued. Pt tolerating sips of water @ this time.
--- NOTE | 2020-02-09 08:15 | HMH.ACPN2 ---
Internal Medicine - PN: Subj *Date: 02/09/20 *Time: 18:01 Interval history: clinically improving sbft neg surgeon notes revd feels better Exam Vital signs and Labs for Last 24 Hours: Temp Pulse Resp BP Pulse Ox 99.5 F 85 16 141/85 H 95 02/09/20 04:00 02/09/20 04:00 02/09/20 04:00 02/09/20 04:00 02/09/20 04:00 I & O for Last 24 hours: Intake & Output 02/06/20 02/07/20 02/08/20 02/09/20 23:59 23:59 23:59 23:59 Intake Total 0 / 0 30 / 30 Output Total 100 / 100 200 / 400 400 / 400 Balance -100 / -100 -200 / -400 -370 / -370 Weight 129 lb 1.996 oz 129 lb 6.4 oz 126 lb 7 oz - *Routine HEENT Exam Head: Present: normocephalic Eye: Present: EOMI, PERRL ENT: Present: mucous membranes moist - *Routine Neck Exam Present: supple. Absent: lymphadenopathy - *Routine Respiratory Exam Present: CTA bilaterally - *Routine Cardiovascular Exam Present: RRR - *Routine Abdominal Exam Present: soft. Absent: tenderness, guarding, rigid, mass - *Routine Extremities Exam Absent: cyanosis, clubbing, edema - *Routine Skin Exam Present: warm. Absent: rash - *Routine Neurological Exam Present: alert, oriented X3. Absent: hearing grossly intact - Routine Psychiatric Exam Present: normal affect, cooperative Assessment and Plan (1) Small bowel obstruction, partial Current visit: Yes Status: Acute Category: Medical Code(s): K56.600 - Partial intestinal obstruction, unspecified as to cause - Assessment and plan all Dx Assessment and Plan for all problems:: sips and chips, advance as venkat hope to discharge tomorrow
--- NOTE | 2020-02-09 11:20 | SW/DCPLANNER ---
Addendum entered by Maria Elena Sandoval 02/13/20 11:57: Renu with [facility] has called back stating that services will begin tomorrow for this patient. Addendum entered by Maria Elena Sandoval 02/13/20 10:33: Patient information has been faxed to [facility] and order for home health services: PT/OT and detention. Original Note: I have spoke with this patients son (Roe) regarding discharge plans. Roe stated that patient resides at home and her granddaughter lives in the basement. Roe stated that patient does well at home and granddaughter checks on her often. Roe also stated that he checks on her a couple times a day. Roe stated that patient does have a walker at home and would be willing to have home health services. Patient has not had home health in the past and son stated she would not have preference on an agency. I will set patient up with home health services on Wednesday morning if she discharges over the weekend. If patient is here on Wednesday I will re-evaluate this situation.
--- NOTE | 2020-02-09 12:15 | HMH.PTEV ---
Physical Therapy Evaluation Rehab PT IP Evaluation Start: 02/09/20 10:44 Freq: .once Status: Active Protocol: Document 02/09/20 12:12 PHORNE (Rec: 02/09/20 12:15 PHORNE [id number]) Subjective/History History History 84 yowf adm to [facility] for possible SBO due to N/V. Lives alone, no steps to enter the home, Independent with all mobility without AD. Subjective Subjective Pt with no c/o this am. Rehab PT IP Eval Objective Appearance Patient Behavior Appropriate Patient Orientation Person,Place,Time Difficulty following instructions none Speech Pattern Clear Ambulation Patient Able to Ambulate Yes Ambulation Observation IP General Gait Pattern Observation No Deviations/Normal Ambulation Distance (feet) 30 Ambulation Assistive Device None Ambulation Ability Independent Balance Ability to Arise Able, w/o using arms Sitting Balance Steady, safe Standing Balance Narrow stance w/o support Dynamic Sitting Balance Ability Normal Dynamic Standing Balance Ability Good Transfers Bed Transfer Ability Independent Chair Transfer Ability Independent Sit to Stand Bed Transfer Ability Independent Sit to Stand Chair Transfer Ability Independent ROM All Extremities PT ROM Status WFL MMT All Extremities PT MMT WFL Rehab PT IP prob,goals,plan Problems Date of Evaluation: 02/09/20 Discharge Plan PT Discharge Plan Pt is independent with all mobility and has no needs from inpatient therapy whatsoever. Safe to return home. G -code Required No Eval Complexity Eval Charge Codes 57764 - Moderate Complexity PHYSICIAN CERTIFICATION: I certify the specified therapy services for Deedee Dhillon are required, authorized, and reviewed every 30 days.
--- NOTE | 2020-02-09 12:48 | PC.NURSE ---
Spoke to Dr. Reeves via phone. Collaborated regarding diet. He ordered to advance to full liquid, then to soft/etc as tolerated. Specific order to advance slowly. Dr. Reeves gave the ok to enter diet order on his behalf as he is not near a computer @ this time. Pt is passing gas and is not nauseated. Has not had a BM. Bowels sounds present all 4 quad.
--- NOTE | 2020-02-09 13:40 | HMH.OTEV ---
OT Inpatient Evaluation Rehab OT IP Evaluation Start: 02/09/20 10:44 Freq: ONCE Status: Complete Protocol: Document 02/09/20 13:35 OMID (Rec: 02/09/20 13:40 [email or web address] [id number]) Rehab OT IP Assessment Subjective History Pt oriented x 3 on arrival. Pt agreeable to engage in therapy evaluation. Pt CHITIMACHA. Pt was admitted via ED for abdominal pain and nausea. Pt has a past medical history of ski CA, CAD, CVA, Hyperlipidemia, HTN, TIA, and UTI. Pt claims she lives at home alone. Pt reports she is independent with all ADL's and IADL's. Pt does have a walker that she uses when needed. Pt also still drives at times. Subjective I need you to say it louder. Objective Patient Orientation Person,Place,Birthday Upper Extremity Gross ROM WFL Bed Mobility bed mobility-scooting,bed mobility - supine/sit,bed mobility - rolling Assist Level Supervision/Stand by Transfer Training Sit/Stand Transfer Assist Level Supervision/Stand by Chair Transfer Ability Supervision/Stand by Chair Transfer Technique Sit to/from Ambulatory Chair Transfer Assistive Devices None Lower Body Dressing Ability Standby Assistance Rehab OT IP prob,goals,plan Problems Date of Evaluation: 02/09/20 Rehab Potential Rehab Potential Innapropriate for Skilled Therapy Discharge Plan OT Discharge Plan Pt appears to be at baseline and does not require continued therapy. Eval Complexity Eval Charge Codes 30060 - Low Complexity G Codes G -code Required No PHYSICIAN CERTIFICATION: I certify the specified therapy services for Deedee Dhillon are required, authorized, and reviewed every 30 days.
[2020-02-09 15:33] VITALS: BP 101/62; PULSE 72; RESP 19; TEMP 37.1; O2SAT 95
--- NOTE | 2020-02-09 16:21 | PC.NURSE ---
No issues this shift. Diet advanced per Dr. Reeves. Pt tolerating a full liquid diet @ this time. Pt gets OOB and to bathroom without assistance. NG tube discontinued this AM. Pt passing gas but still no BM. Bowel sounds present al 4 quads. Plan is for pt to discharge home tomorrow and Home Health to start on Wednesday.
[2020-02-09 19:52] VITALS: BP 129/72; PULSE 73; RESP 16; TEMP 37.2; O2SAT 96
--- NOTE | 2020-02-10 03:50 | PC.NURSE ---
Pt has rested well this shift. Pt continues to ambulate independently to urinate, gait is steady and balanced. Pt shows excitement about possible discharge tomorrow. During med pass pt c/o a scratchy throat. Pt received PRN throat spray per SEP. No other changes this shift. Call light is within reach, will continue to monitor.
[2020-02-10 04:00] VITALS: BP 135/67; PULSE 76; RESP 16; TEMP 37.2; O2SAT 95
[2020-02-10 05:27] VITALS: BMI 26.2
--- NOTE | 2020-02-10 06:00 | XR_ITS ---
PROCEDURE: XR ACUTE ABDOMEN SERIES CLINICAL INDICATION: partial sbo Follow-up bowel obstruction COMPARISON: CR CXR1 CHEST-PORTABLE from 06/30/2015 CR XR ACUTE ABDOMEN SERIES from 02/09/2020 FINDINGS: Frontal view of the chest shows no acute finding. Loop recorder device is in place. Nasogastric tube has been removed. Barium remains within the large bowel. No evidence of small-bowel obstruction free air or other significant anomalies. Other findings:None. IMPRESSION: Overall no change. There is residual contrast within nondilated large bowel without evidence of small-bowel obstruction Dictated b Jai Sifuentes MD 02/10/2020 06:59 Jai Sifuentes MD in [place] 02/10/2020 06:59
[2020-02-10 06:56] LABS: Basophils % 0.3 % (0.1-2.0); Eosinophils # 0.1 K/mm3 (0.0-0.4); Eosinophils % 2.1 % (0.1-12.0); Hematocrit 36.1 % (37.0-47.0); Hemoglobin 12.4 g/dL (12.2-16.2); Lymphocytes # 2.1 K/mm3 (0.7-4.5); Lymphocytes % 31.2 % (10-50); Mean Corpuscular HGB Conc 34.5 g/dL (31.8-35.4); Mean Corpuscular Hemoglobin 31.7 pg (27.0-31.2); Mean Corpuscular Volume 91.8 fl (81-99); Mean Platelet Volume 8.8 fl (7.4-10.4); Monocytes # 0.4 K/mm3 (0.1-1.0); Monocytes % 6.7 % (1.7-9.3); Neutrophils % 59.8 % (37.0-80.0); Platelet Count 185 K/mm3 (142-424); Red Blood Count 3.93 M/mm3 (4.20-5.40); Red Cell Distribution Width 13.4 % (11.5-17.5); White Blood Count 6.6 K/mm3 (4.8-10.8)
[2020-02-10 07:09] LABS: Chloride 97 mmol/L (98-107)
[2020-02-10 07:10] LABS: Sodium 139 mmol/L (136-145)
[2020-02-10 07:13] LABS: Anion Gap 10.9 mEq/L (5-15); Blood Urea Nitrogen 21 mg/dl (7-17); Carbon Dioxide 34 mmol/L (22.0-30.0); Creatinine Clearance Estimated 39 mL/min (50-200); Estimated Glomerular Filt Rate 60 ml/min (>60); GFR (African American) 73 ML/MIN (>60); Glucose 98 mg/dl (74-100)
[2020-02-10 07:16] LABS: Potassium 2.9 mmoL/L (3.5-5.1)
[2020-02-10 07:21] LABS: Calcium 9.2 mg/dl (8.4-10.2)
[2020-02-10 08:00] VITALS: BP 123/61; PULSE 71; RESP 16; TEMP 36.8; O2SAT 97
--- NOTE | 2020-02-10 08:27 | P.PN_ITS ---
Subjective Patient reports: feels better (wants to go home), flatus Exam Vital signs and Labs for Last 24 Hours: Temp Pulse Resp BP Pulse Ox 98.9 F 76 16 135/67 95 02/10/20 04:00 02/10/20 04:00 02/10/20 04:00 02/10/20 04:00 02/10/20 04:00 Laboratory Results - last 24 hr 02/10/20 06:19: WBC 6.6, RBC 3.93 L, Hgb 12.4, Hct 36.1 L, MCV 91.8, MCH 31.7 H, MCHC 34.5, RDW 13.4, Plt Count 185, MPV 8.8, Neut % (Auto) 59.8, Lymph % (Auto) 31.2, [place] % (Auto) 6.7, Eos % (Auto) 2.1, Baso % (Auto) 0.3, Neut # (Auto) 4.0, Lymph # (Auto) 2.1, [place] # (Auto) 0.4, Eos # (Auto) 0.1, Baso # (Auto) 0.0 02/10/20 06:19: Sodium 139, Potassium 2.9 L*, Chloride 97 L, Carbon Dioxide 34 H , Anion Gap 10.9, BUN 21 H D, Creatinine 0.90, Estimated Creat Clear 39, Estimated GFR 60, Est GFR ( Amer) 73, Glucose 98, Calcium 9.2 D I & O for Last 24 hours: Intake & Output 02/07/20 02/08/20 02/09/20 02/10/20 11:59 11:59 11:59 11:59 Intake Total 0 / 0 840 / 840 Output Total 250 / 250 450 / 450 Balance -250 / -250 -420 / -420 840 / 840 Weight 129 lb 1.996 oz 129 lb 6.4 oz 126 lb 7 oz 125 lb 2 oz - Constitutional no acute distress - *Routine Respiratory Exam Absent: respiratory distress - *Routine Abdominal Exam Present: soft Progress Note: A&P (1) Small bowel obstruction, partial Status: Acute Assessment and plan: Radiographic changes most likely secondary to enterocolitis. Small bowel follow-through and follow-up films reveal no sign of obstruction. Continue management as per primary service. Current Visit: Yes
--- NOTE | 2020-02-10 09:18 | PC.NURSE ---
0900 - Dr. Otero made aware of Potassium of 2.[address] orders[address]
--- NOTE | 2020-02-10 09:38 | HMH.ACPN2 ---
Internal Medicine - PN: Subj *Date: 02/11/20 *Time: 09:17 Interval history: doing better - surg note reviewed Exam Vital signs and Labs for Last 24 Hours: Temp Pulse Resp BP Pulse Ox 98.3 F 71 16 123/61 97 02/10/20 08:00 02/10/20 08:00 02/10/20 08:00 02/10/20 08:00 02/10/20 08:00 Laboratory Results - last 24 hr 02/10/20 06:19: WBC 6.6, RBC 3.93 L, Hgb 12.4, Hct 36.1 L, MCV 91.8, MCH 31.7 H, MCHC 34.5, RDW 13.4, Plt Count 185, MPV 8.8, Neut % (Auto) 59.8, Lymph % (Auto) 31.2, [place] % (Auto) 6.7, Eos % (Auto) 2.1, Baso % (Auto) 0.3, Neut # (Auto) 4.0, Lymph # (Auto) 2.1, [place] # (Auto) 0.4, Eos # (Auto) 0.1, Baso # (Auto) 0.0 02/10/20 06:19: Sodium 139, Potassium 2.9 L*, Chloride 97 L, Carbon Dioxide 34 H, Anion Gap 10.9, BUN 21 H D, Creatinine 0.90, Estimated Creat Clear 39, Estimated GFR 60, Est GFR ( Amer) 73, Glucose 98, Calcium 9.2 D I & O for Last 24 hours: Intake & Output 02/07/20 02/08/20 02/09/20 02/10/20 11:59 11:59 11:59 11:59 Intake Total 0 / 0 30 / 30 1200 / 1200 Output Total 250 / 250 450 / 450 Balance -250 / -250 -420 / -420 1200 / 1200 Weight 129 lb 1.996 oz 129 lb 6.4 oz 126 lb 7 oz 125 lb 2 oz - Constitutional no acute distress - *Routine HEENT Exam Head: Present: normocephalic Eye: Present: EOMI, PERRL ENT: Present: mucous membranes dry - *Routine Neck Exam Present: supple. Absent: JVD - *Routine Respiratory Exam Present: CTA bilaterally - *Routine Cardiovascular Exam Present: RRR, murmur - *Routine Abdominal Exam Present: soft. Absent: tenderness - *Routine Extremities Exam Present: full ROM - Routine Back/Spine/Pelvis Exam Back/Spine: Absent: CVA tenderness - *Routine Skin Exam Present: intact - *Routine Neurological Exam Present: alert, CN II-XII intact - Routine Psychiatric Exam Present: normal affect Assessment and Plan (1) Small bowel obstruction, partial Current visit: Yes Status: Acute Category: Medical Code(s): K56.600 - Partial intestinal obstruction, unspecified as to cause (2) Hypokalemia Current visit: Yes Status: Acute Category: Medical Code(s): E87.6 - Hypokalemia (3) Hearing impairment Current visit: Yes Status: Acute Qualifiers: Hearing loss type: unspecified Laterality: bilateral Qualified Code(s): H91.93 - Unspecified hearing loss, bilateral Category: Medical Code(s): H91.90 - Unspecified hearing loss, unspecified ear (4) HTN (hypertension) Current visit: Yes Status: Chronic Qualifiers: Hypertension type: essential hypertension Category: Medical Code(s): I10 - Essential (primary) hypertension (5) Coronary arteriosclerosis Current visit: No Status: Chronic Category: Medical Code(s): I25.10 - Atherosclerotic heart disease of [place] coronary artery without angina pectoris
[2020-02-10 16:00] VITALS: BP 127/69; PULSE 73; RESP 18; TEMP 36.5; O2SAT 97
--- NOTE | 2020-02-10 18:04 | PC.NURSE ---
Pt has been pleasant and cooperative this shift. A&O X4. No complaints of pain. Critical K+ this AM reported to Dr. Otero and received orders for IV K+ X2. Pt ambulates independently throughout the room and to the bathroom. No BM this shift. 20 G peripheral IV in the LT AC is patent and SL. VSS. Call light within reach. Will continue to monitor.
[2020-02-10 19:35] VITALS: BP 122/75; PULSE 65; RESP 16; TEMP 36.7; O2SAT 93
[2020-02-11 04:00] VITALS: BP 135/88; PULSE 79; RESP 16; TEMP 36.9; O2SAT 95
[2020-02-11 05:00] VITALS: BMI 26.2
[2020-02-11 08:00] VITALS: BP 138/86; PULSE 75; RESP 20; TEMP 36.6; O2SAT 98
--- NOTE | 2020-02-11 08:41 | HMH.GSPN ---
Subjective Patient reports: feels better Exam Vital signs and Labs for Last 24 Hours: Temp Pulse Resp BP Pulse Ox 97.9 F 75 20 138/86 98 02/11/20 08:00 02/11/20 08:00 02/11/20 08:00 02/11/20 08:00 02/11/20 08:00 I & O for Last 24 hours: Intake & Output 02/08/20 02/09/20 02/10/20 02/11/20 11:59 11:59 11:59 11:59 Intake Total 0 / 0 30 / 30 1200 / 1200 1045 / 1045 Output Total 250 / 250 450 / 450 1000 / 1000 Balance -250 / -250 -420 / -420 1200 / 1200 45 / 45 Weight 129 lb 6.4 oz 126 lb 7 oz 125 lb 2 oz 125 lb 1.974 oz - Constitutional no acute distress - *Routine Respiratory Exam Absent: respiratory distress - *Routine Cardiovascular Exam Present: RRR - *Routine Abdominal Exam Present: soft Progress Note: A&P (1) Small bowel obstruction, partial Status: Acute Assessment and plan: No evidence of obstruction on physical exam. Small bowel series and follow-up abdominal films revealed no sign of obstruction. Continued management as per primary service Current Visit: Yes
--- NOTE | 2020-02-11 10:55 | HMH.DCSUM ---
General - General Admission date:: 02/07/20 Discharge date: 02/11/20 HPI HPI: 84-year-old female presented to the emergency department with increasing abdominal pain and nausea. Pt states her abd pain increased with vomiting. Pt c/o omplains of generalized abdominal pain since 4 AM. No vomiting or diarrhea. She took a laxative yesterday and tried a suppository yesterday without relief. She does not know when her last bowel movement was. Pt admitted for sbo and consult surgery and GI. Hospital Course Hospital Course: pt has improved with dec abd pain and tolerating diet and activity level at baseline - labs improved -will follow as op Objective Vital signs: Temp Pulse Resp BP Pulse Ox 97.9 F 75 20 138/86 98 02/11/20 08:00 02/11/20 08:00 02/11/20 08:00 02/11/20 08:00 02/11/20 08:00 no acute distress - *Routine HEENT Exam Head: Present: normocephalic Eye: Present: EOMI, PERRL ENT: Present: mucous membranes dry - *Routine Neck Exam Present: supple. Absent: JVD - *Routine Respiratory Exam Present: CTA bilaterally - *Routine Cardiovascular Exam Present: RRR, murmur - *Routine Abdominal Exam Present: soft. Absent: tenderness, distended - *Routine Extremities Exam Present: full ROM - *Routine Skin Exam Present: intact - *Routine Neurological Exam Present: alert, oriented X3, CN II-XII intact - Routine Psychiatric Exam Present: normal affect DS: Diagnosis - Discharge Diagnosis (1) Small bowel obstruction, partial Status: Acute (2) Hypokalemia Status: Acute (3) Hearing impairment Status: Acute (4) HTN (hypertension) Status: Chronic (5) Coronary arteriosclerosis Status: Chronic Discharge Plan - Patient Discharge Instructions ACTIVITY: Continue current activity DIET: continue same diet Patient Instructions: Hypertension (Alternative Therapy), Small Bowel Obstruction - Follow up Plan Follow up with: Drew Friend MD [Staff Physician] - 02/15/20 2:15 pm Disposition: Home, Self-Group Home Medications: Home Medications Medication Instructions Recorded Confirmed Type aspirin 81 mg tablet,delayed 81 mg PO DAILY 07/09/17 02/07/20 History release vitamin B complex 1 tab PO QDAY 07/09/17 02/07/20 History cranberry 400 mg capsule 400 mg PO DAILY 06/06/18 02/07/20 History vitamin E (dl, acetate) 200 unit 200 unit PO DAILY 06/06/18 02/07/20 History capsule nitroglycerin 0.4 mg sublingual 0.4 mg SUBLINGUAL Q5M PRN #25 tab 07/19/18 02/07/20 Rx tablet atorvastatin 20 mg tablet 20 mg PO HS #90 tab 10/03/19 02/07/20 Rx losartan 100 mg tablet 50 mg PO DAILY tab 01/11/20 02/07/20 History Donepezil HCl [Aricept 10mg 10 mg PO HS 01/17/20 02/07/20 History tablet] Ergocalciferol (Vitamin D2) 1,250 mcg PO WEEKLY 01/17/20 02/07/20 History [Drisdol] Levothyroxine Sodium [Synthroid 50 mcg PO DAILY 01/17/20 02/07/20 History 50mcg (0.05mg) tab] Loratadine [Allergy Relief] 10 mg PO DAILY 01/17/20 02/07/20 History carvediloL [Carvedilol 3.125mg Tab] 3.125 mg PO BID 01/17/20 02/07/20 History levETIRAcetam [Levetiracetam] 500 mg PO BID 01/17/20 02/07/20 History oxybutynin chloride 5 mg tablet 5 mg PO BID #90 tab 01/19/20 02/07/20 Rx hydrochlorothiazide 12.5 mg tablet 12.5 mg PO DAILY #90 tab 01/22/20 02/07/20 Rx Prescriptions/Medication Reconciliation: New levETIRAcetam [Keppra 500mg tablet] 500 mg PO BID tablet Continued aspirin 81 mg tablet,delayed release 81 mg PO DAILY vitamin B complex 1 tab PO QDAY vitamin E (dl, acetate) 200 unit capsule 200 unit PO DAILY cranberry 400 mg capsule 400 mg PO DAILY atorvastatin 20 mg tablet 20 mg PO HS #90 tab nitroglycerin 0.4 mg sublingual tablet 0.4 mg SUBLINGUAL Q5M PRN #25 tab PRN Reason: chest pain losartan 100 mg tablet 50 mg PO DAILY tab oxybutynin chloride 5 mg tablet 5 mg PO BID #90 tab Levothyroxine Sodium [Synthroid 50mcg (0.05mg) tab*
--- NOTE | 2020-02-11 10:57 | PC.NURSE ---
Christin w/ Dr. Otero. Pt to be DC home. Sutures on pt's nose removed by Dr. Otero at bedside.
== END 2020-02-11 12:30 | disposition home or self-care (01) | DRG 390 ==
LOC: ER 09:48 → 2ND 10:04
PROVIDERS: Emergency Medicine; Admitting Provider Family Medicine; Emergency Provider Emergency Medicine; PCP Emergency Medicine; Visit Provider Family Medicine
DX: K56.600 Partial intestinal obstruction, unspecified as to cause (principal); I25.10 Atherosclerotic heart disease of native coronary artery without angina pectoris; I10 Essential (primary) hypertension; E78.5 Hyperlipidemia, unspecified; Z95.5 Presence of coronary angioplasty implant and graft; E03.9 Hypothyroidism, unspecified; Z79.899 Other long term (current) drug therapy
CPT/HCPCS: 36415; 71045; 71046; 74021; 74177; 74250; 80048; 80076; 81001; 82150; 83690; 84484; 85025; 87581; 87633; 87798; 93005; 96365; 96375; 96376; 97162; 97165; 99285; J2405; Q9967

== ENCOUNTER → 2020-02-21 09:41 | Outpatient (CLI) | payer MEDICARE, OTHER, SELFPAY ==
[2020-02-21 10:39] LABS: Coronavirus 19 IgG Antibody Negative (Negative); Coronavirus 19 IgM Antibody Negative (Negative)
== END ==
PROVIDERS: Visit Provider Otolaryngology
DX: Z01.818 Encounter for other preprocedural examination (principal); C76.0 Malignant neoplasm of head, face and neck
CPT/HCPCS: 36415; 86328

== ENCOUNTER 2020-02-22 08:39 | Day surgery (SDC) | payer MEDICARE, OTHER, SELFPAY ==
[2020-02-22 09:27] VITALS: BP 192/90; PULSE 66; RESP 18; TEMP 36.3; O2SAT 98; BMI 24.5
[2020-02-22 12:45] VITALS: BP 163/97; PULSE 78; RESP 18; TEMP 36.8; O2SAT 98
[2020-02-22 12:55] VITALS: BP 179/95; PULSE 73; RESP 18; O2SAT 97
[2020-02-22 13:01] VITALS: BP 163/92; PULSE 75; RESP 18; O2SAT 99
--- NOTE | 2020-02-22 13:04 | HMH.OPNOTE ---
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 The previous excision site on the tip of the nose was marked out in an extended fashion and skin and subcutaneous tissue were excised. Labeled for the margins and submitted for frozen section analysis. The tissue was not analyzed and the pathologist reported that the inferior and left lateral margins were positive. Accordingly an extended inferior and left lateral margin was provided to the pathologist and the final report was negative for tumor. A full-thickness skin graft was harvested from the facial crease area and defatted. It was coapted to the superior aspect of the recipient site with multiple 4-0 nylon sutures. In the lower portion of the recipient site and the donor site were also closed with interrupted 4-0 nylon sutures. A Dermabond dressing was applied and the patient was sent to recovery in good general condition. Condition: stable Disposition: PACU Complications:: none
[2020-02-22 13:16] VITALS: BP 176/88; PULSE 73; RESP 18; O2SAT 98
== END 2020-02-22 13:16 | disposition home or self-care (01) ==
PROVIDERS: PCP Emergency Medicine; Visit Provider Otolaryngology
DX: C44.311 Basal cell carcinoma of skin of nose (principal); I10 Essential (primary) hypertension; I25.10 Atherosclerotic heart disease of native coronary artery without angina pectoris; Z85.828 Personal history of other malignant neoplasm of skin; E78.5 Hyperlipidemia, unspecified; E03.9 Hypothyroidism, unspecified; Z86.73 Personal history of transient ischemic attack (TIA), and cerebral infarction without residual deficits; Z96.649 Presence of unspecified artificial hip joint; Z95.818 Presence of other cardiac implants and grafts; Z79.82 Long term (current) use of aspirin; Z79.899 Other long term (current) drug therapy
CPT/HCPCS: 11106; 15261; 88305; 88331; 96374; 96375

== ENCOUNTER → 2020-03-08 17:28 | Outpatient (CLI) | payer MEDICARE, OTHER, SELFPAY ==
[2020-03-08 18:40] LABS: Chloride 105 mmol/L (98-107)
[2020-03-08 18:41] LABS: Potassium 3.7 mmoL/L (3.5-5.1); Sodium 141 mmol/L (136-145)
[2020-03-08 18:44] LABS: Anion Gap 13.7 mEq/L (5-15); Blood Urea Nitrogen 9 mg/dl (7-17); Calcium 9.1 mg/dl (8.4-10.2); Carbon Dioxide 26 mmol/L (22.0-30.0); Estimated Glomerular Filt Rate 80 ml/min (>60); GFR (African American) 97 ML/MIN (>60); Glucose 127 mg/dl (74-100)
== END ==
PROVIDERS: Visit Provider Physician Assistant
DX: E87.6 Hypokalemia (principal)
CPT/HCPCS: 80048

== ENCOUNTER 2020-09-16 12:48 | Emergency (ER) | payer MEDICARE, OTHER, SELFPAY ==
[2020-09-16] VITALS (17 sets, daily range): BP systolic 144–191; BP diastolic 79–120; PULSE 78–83; RESP 16–19; TEMP 36.7–37.1; O2SAT 92–99; BMI 54.1
--- NOTE | 2020-09-16 12:50 | ECG_ITS ---
APPROVED REPORT Exam: Resting ECG HR:64 bpm ECG Measurements Heart Rate 64 AXES [place] 186 P 36 QRSd 70 QRS -15 QT 452 T 79 QTc 466 Conclusion Normal sinus rhythm Late R wave transition Abnormal ECG Electronically signed by : Alex Cordova, 09/17/2020 19:38:39
--- NOTE | 2020-09-16 13:09 | XR_ITS ---
PROCEDURE: XR CHEST PORTABLE CLINICAL HISTORY: syncope COMPARISON: CR CXR2 XR chest AP from 10/30/2017 CR XR CHEST PORTABLE from 02/07/2020 CR XR CHEST 2V from 02/07/2020 FINDINGS: The cardiomediastinal silhouette and pulmonary vascularity are within normal limits. The lungs are clear without infiltrates, suspicious nodules, or pleural effusions. Loop recorder device overlies the left heart. There are degenerative changes in the AC joints glenohumeral joints. IMPRESSION: No acute findings. Dictated by: Jai Sifuentes MD 09/16/2020 14:04 Jai Sifuentes MD in [place] 09/16/2020 14:04
--- NOTE | 2020-09-16 13:10 | HMH.EDSYNC ---
ED Disposition Clinical Impression: Fall from standing Qualifiers: Encounter type: initial encounter Qualified Code(s): W19.XXXA - Unspecified fall, initial encounter Knee pain Qualifiers: Chronicity: chronic Laterality: right Qualified Code(s): M25.561 - Pain in right knee Disposition: Home, Self-Care Condition on Discharge: Good Instructions: DI for Syncope in Adults (Fainting), DI for Syncope in Children (Fainting) Referrals: PCP,No [Non-Staff] - 3 days Time of Disposition: 16:41 - Critical Care Critical Care Time: No Attestation: On 09/16/20, the high probability of a clinically significant, sudden or life threatening deterioration of the following system(s) required my full and direct attention, intervention and personal management. The time I documented below is in addition to time spent performing reported procedures but includes the following listed in this critical care notation. Medical Decision Making - Medical Records Medical records reviewed: Yes: I reviewed the patient's medical records. - José Inquiry Pt receiving controlled substance: No Vital Signs: 09/16/20 12:48 09/16/20 13:15 09/16/20 13:30 Temperature 98.8 F Temperature Source Oral Pulse Rate Pulse Rate [Left Radial] 78 Respiratory Rate 16 18 Blood Pressure 186/85 H Blood Pressure [Right Arm] 168/99 H Blood Pressure Mean 113 Blood Pressure Mean [Right Arm] 122 Blood Pressure Source [Right Arm] Automatic Cuff Blood Pressure Position [Right Arm] Sitting 02 Sat by Pulse Oximetry 98 98 99 Oxygen Delivery Method Room Air 09/16/20 13:45 09/16/20 14:00 09/16/20 14:01 Temperature Temperature Source Pulse Rate Pulse Rate [Left Radial] Respiratory Rate 18 Blood Pressure 190/103 H Blood Pressure [Right Arm] Blood Pressure Mean 128 Blood Pressure Mean [Right Arm] Blood Pressure Source [Right Arm] Blood Pressure Position [Right Arm] 02 Sat by Pulse Oximetry 95 97 92 L Oxygen Delivery Method 09/16/20 14:15 09/16/20 14:30 09/16/20 14:45 Temperature Temperature Source Pulse Rate Pulse Rate [Left Radial] Respiratory Rate 18 Blood Pressure 168/96 H Blood Pressure [Right Arm] Blood Pressure Mean 120 Blood Pressure Mean [Right Arm] Blood Pressure Source [Right Arm] Blood Pressure Position [Right Arm] 02 Sat by Pulse Oximetry 96 98 96 Oxygen Delivery Method 09/16/20 15:00 09/16/20 15:10 09/16/20 15:15 Temperature Temperature Source Pulse Rate 83 78 Pulse Rate [Left Radial] Respiratory Rate Blood Pressure 181/106 H 191/96 H Blood Pressure [Right Arm] Blood Pressure Mean 123 127 Blood Pressure Mean [Right Arm] Blood Pressure Source [Right Arm] Blood Pressure Position [Right Arm] 02 Sat by Pulse Oximetry 97 95 99 Oxygen Delivery Method 09/16/20 15:30 09/16/20 15:31 Temperature Temperature Source Pulse Rate 82 Pulse Rate [Left Radial] Respiratory Rate Blood Pressure 145/120 H Blood Pressure [Right Arm] Blood Pressure Mean 129 Blood Pressure Mean [Right Arm] Blood Pressure Source [Right Arm] Blood Pressure Position [Right Arm] 02 Sat by Pulse Oximetry 99 99 Oxygen Delivery Method - Lab Data Lab results reviewed: Yes: I reviewed the patient's lab results. Lab Results 09/16/20 13:20: WBC 8.4, RBC 4.44, Hgb 12.5, Hct 39.2, MCV 88.3, MCH 28.1, MCHC 31.8, RDW 14.6, Plt Count 211, MPV 8.8, Neut % (Auto) 76.0, Lymph % (Auto) 18.9, [place] % (Auto) 4.4, Eos % (Auto) 0.3, Baso % (Auto) 0.4, Neut # (Auto) 6.4, Lymph # (Auto) 1.6, [place] # (Auto) 0.4, Eos # (Auto) 0.0, Baso # (Auto) 0.0 09/16/20 13:20: Sodium 141, Potassium 3.5, Chloride 101, Carbon Dioxide 33 H, Anion Gap 10.5, BUN 13, Creatinine 0.80, Estimated Creat Clear 32, Estimated GFR 69, Est GFR ( Amer) 83, Glucose 125 H, Calcium 9.4 09/16/20 13:20: Troponin I < 0.01 09/16/20 15:05: Urine Color Yellow, Urine Appearance Cl
[2020-09-16 13:37] LABS: Basophils % 0.4 % (0.1-2.0); Eosinophils % 0.3 % (0.1-12.0); Hematocrit 39.2 % (37.0-47.0); Hemoglobin 12.5 g/dL (12.2-16.2); Lymphocytes # 1.6 K/mm3 (0.7-4.5); Lymphocytes % 18.9 % (10-50); Mean Corpuscular HGB Conc 31.8 g/dL (31.8-35.4); Mean Corpuscular Hemoglobin 28.1 pg (27.0-31.2); Mean Corpuscular Volume 88.3 fl (81-99); Mean Platelet Volume 8.8 fl (7.4-10.4); Monocytes # 0.4 K/mm3 (0.1-1.0); Monocytes % 4.4 % (1.7-9.3); Neutrophils # 6.4 K/mm3 (1.8-7.8); Platelet Count 211 K/mm3 (142-424); Red Blood Count 4.44 M/mm3 (4.20-5.40); Red Cell Distribution Width 14.6 % (11.5-17.5); White Blood Count 8.4 K/mm3 (4.8-10.8)
[2020-09-16 13:39] LABS: Chloride 101 mmol/L (98-107); Potassium 3.5 mmoL/L (3.5-5.1); Sodium 141 mmol/L (136-145)
[2020-09-16 13:42] LABS: Anion Gap 10.5 mEq/L (5-15); Blood Urea Nitrogen 13 mg/dl (7-17); Calcium 9.4 mg/dl (8.4-10.2); Carbon Dioxide 33 mmol/L (22.0-30.0); Creatinine Clearance Estimated 32 mL/min (50-200); Estimated Glomerular Filt Rate 69 ml/min (>60); GFR (African American) 83 ML/MIN (>60); Glucose 125 mg/dl (74-100)
[2020-09-16 14:42] LABS: Troponin I < 0.01 ng/ml (0.00-0.034)
[2020-09-16 15:13] LABS: Microscopic, Urine URINE MICROSCOPIC (MICROSCOPIC)
[2020-09-16 15:20] LABS: Appearance,Urine CLEAR (Clear); Blood, Urine 2+ (Negative); Color,Urine YELLOW (Yellow); Glucose,Urine (UA) Negative (Negative); Ketones,Urine TRACE (Negative); Leukocyte Esterase,Urine TRACE (Negative); Nitrate,Urine Negative (Negative); Protein,Urine TRACE (Negative); Specific Gravity, Urine 1.025 (1.005-1.030); Urobilinogen,Urine 0.2 EU/dl (0.2)
[2020-09-16 15:28] LABS: Bilirubin,Urine Negative (Negative)
--- NOTE | 2020-09-16 15:39 | XR_ITS ---
PROCEDURE: XR KNEE RT 2V CLINICAL INDICATION: pain Right knee pain COMPARISON: No exams were available for comparison FINDINGS: There has been a medial hemiarthroplasty which is in good alignment. Chondrocalcinosis noted laterally. There is a calcific density at the inter spinous region of the tibia and also 1 at the distal femur intercondylar region consistent with loose bodies.. No acute fracture.. Mild osteoarthritic changes are present in the lateral compartment and patellofemoral joint Other findings:None. 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
[2020-09-16 16:02] LABS: Bacteria,Urine 2+ /lpf
== END 2020-09-16 16:59 | disposition home or self-care (01) ==
PROVIDERS: Emergency Provider Family Medicine; PCP Emergency Medicine
DX: R55 Syncope and collapse (principal); M25.561 Pain in right knee; W18.39XA Other fall on same level, initial encounter; Y92.019 Unspecified place in single-family (private) house as the place of occurrence of the external cause; I25.10 Atherosclerotic heart disease of native coronary artery without angina pectoris; Z86.73 Personal history of transient ischemic attack (TIA), and cerebral infarction without residual deficits; E78.5 Hyperlipidemia, unspecified; I10 Essential (primary) hypertension; E03.9 Hypothyroidism, unspecified; Z95.5 Presence of coronary angioplasty implant and graft; Z79.899 Other long term (current) drug therapy
CPT/HCPCS: 71045; 73560; 80048; 81001; 84484; 85025; 87086; 93005; 99283

== ENCOUNTER → 2020-10-07 14:17 | Outpatient (CLI) | payer MEDICARE, SELFPAY | PROVIDERS: Visit Provider Emergency Medicine | DX: R82.90 Unspecified abnormal findings in urine (principal) | CPT/HCPCS: 87086 ==

== ENCOUNTER 2020-10-25 10:21 | Emergency (ER) | payer MEDICARE, OTHER, SELFPAY ==
--- NOTE | 2020-10-25 10:15 | ECG_ITS ---
APPROVED REPORT Exam: Resting ECG HR:71 bpm ECG Measurements Heart Rate 71 AXES [place] 196 P 36 QRSd 72 QRS -21 QT 524 T 56 QTc 569 Conclusion Normal sinus rhythm Moderate voltage criteria for LVH, may be normal variant ST abnormality, possible digitalis effect Prolonged QT Abnormal ECG Electronically signed by : Alex Cordova, 10/25/2020 19:07:29
[2020-10-25 10:16] VITALS: BP 112/75; PULSE 82; RESP 20; TEMP 36.8; O2SAT 96; BMI 23.0
--- NOTE | 2020-10-25 10:16 | HMH.EDGENADL ---
ED Disposition Clinical Impression: Spontaneous intraparenchymal intracranial hemorrhage, acute, Intraventricular hemorrhage, Brain compression Disposition: Xfer Short-Term Hosp Condition on Discharge: Good Referrals: Jim Otero MD [Primary Care Provider] - Forms: Transfer Record - ED - Critical Care Critical Care Time: Yes Attestation: On , the high probability of a clinically significant, sudden or life threatening deterioration of the following system(s) required my full and direct attention, intervention and personal management. The time I documented below is in addition to time spent performing reported procedures but includes the following listed in this critical care notation. Total Critical Care Time: 35 Vital system(s) involved:: Central Nervous System My critical care processes included: Assessment & monitoring of V/S, Initial and Re-exams, Data Review/Interpretation, Coordinating Care, Medication Orders and management, Documentation Medical Decision Making - Medical Records Medical records reviewed: Yes: I reviewed the patient's medical records. - José Inquiry Pt receiving controlled substance: No Vital Signs: 10/25/20 10:16 10/25/20 10:52 10/25/20 11:26 Temperature 98.2 F Temperature Source Oral Pulse Rate 72 69 Pulse Rate [Left Radial] 82 Respiratory Rate 20 Blood Pressure 124/67 135/79 Blood Pressure [Right Arm] 112/75 Blood Pressure Mean 86 84 Blood Pressure Mean [Right Arm] 87 Blood Pressure Source [Right Arm] Automatic Cuff Blood Pressure Position [Right Arm] Sitting 02 Sat by Pulse Oximetry 96 98 98 Oxygen Delivery Method Room Air - Lab Data Lab results reviewed: Yes: I reviewed the patient's lab results. Lab Results 10/25/20 10:21: WBC 12.0 H, RBC 4.62, Hgb 13.0, Hct 40.3, MCV 87.4, MCH 28.2, MCHC 32.3, RDW 14.6, Plt Count 275, MPV 8.7, Neut % (Auto) 82.1 H, Lymph % (Auto) 14.9, [place] % (Auto) 2.8, Eos % (Auto) 0.1, Baso % (Auto) 0.1, Neut # (Auto) 9.8 H, Lymph # (Auto) 1.8, [place] # (Auto) 0.3, Eos # (Auto) 0.0, Baso # (Auto) 0.0 10/25/20 10:21: Sodium 134 L, Potassium 3.3 L, Chloride 92 L, Carbon Dioxide 27, Anion Gap 18.3 H, BUN 22 H, Creatinine 1.20 H, Estimated Creat Clear 33, Estimated GFR 43 L, Est GFR ( Amer) 52 L, Glucose 195 H, Calcium 9.6, Troponin I 0.08 H 10/25/20 10:29: Urine Color Yellow, Urine Appearance Sl cloudy, Urine pH 6.0, Ur Specific [place] >= 1.030, Urine Protein 1+, Urine Glucose (UA) Negative, Urine Ketones Negative, Urine Blood 2+, Urine Nitrate Negative, Urine Bilirubin Negative, Urine Urobilinogen 0.2, Ur Leukocyte Esterase Negative, Urine RBC 5-10, Urine WBC None, Ur Squamous Epith Cells 5-10, Amorphous Sediment 1+, Urine Bacteria None Result diagrams: 10/25/20 10:21 10/25/20 10:21 Orders (Tests/Meds): ED MEDICATIONS Generic Name Dose Route Start Last Admin Trade Name Freq PRN Reason Stop Dose Admin Lactated Ringer's 1,000 mls @ 999 mls/hr 10/25/20 11:00 10/25/20 11:28 Lactated Ringer's 1000 Ml Bag IV 10/25/20 12:00 999 mls/hr .Q1H1M CASTILLO Administration ORDERS Category Date Time Status Covid-19 Nasal PCR ([facility]) Routine Lab 10/25/20 10:45 Received Troponin I Q3H Lab 10/25/20 13:30 Ordered Troponin I Q3H Lab 10/25/20 16:30 Ordered - ECG Data Tracing #1 71 bpm, normal sinus rhythm, prolonged QT, no ST elevation or depression, no ectopy. ECG initial impression date: 10/25/20 ECG initial impression time: 10:20 Medical Decision Narrative: 85yo F evaluated with concern for UTI after several episodes of near syncope. Patient in no acute distress on initial evaluation. EKG is unremarkable as above. Routine lab work has been initiated. Patient is sent to CT for CT of the head. Radiology calls to report IPH and intraventricular hemorrhage. Findings are discussed with family at bedside. They report they would like further investigation and intervention if needed/possible. Discussed transfer
--- NOTE | 2020-10-25 10:17 | XR_ITS ---
PROCEDURE: XR CHEST PORTABLE CLINICAL HISTORY: syncope COMPARISON: CR XR CHEST PORTABLE from 02/07/2020 CR XR CHEST 2V from 02/07/2020 CR XR CHEST PORTABLE from 09/16/2020 FINDINGS: The cardiomediastinal silhouette and pulmonary vascularity are within normal limits. The loop recorder device is in place. Lungs are clear bilaterally. No acute bony abnormalities. IMPRESSION: No acute findings. Dictated by: Jai Sifuentes MD 10/25/2020 10:41 Jai Sifuentes MD in [place] 10/25/2020 10:41
[2020-10-25 10:33] VITALS: BMI 23.8
[2020-10-25 10:34] LABS: Microscopic, Urine URINE MICROSCOPIC (MICROSCOPIC)
[2020-10-25 10:35] LABS: Appearance,Urine SL CLOUDY (Clear); Blood, Urine 2+ (Negative); Color,Urine YELLOW (Yellow); Glucose,Urine (UA) Negative (Negative); Ketones,Urine Negative (Negative); Leukocyte Esterase,Urine Negative (Negative); Nitrate,Urine Negative (Negative); Protein,Urine 1+ (Negative); Specific Gravity, Urine >= 1.030 (1.005-1.030); Urobilinogen,Urine 0.2 EU/dl (0.2)
[2020-10-25 10:36] LABS: Bilirubin,Urine Negative (Negative)
[2020-10-25 10:37] LABS: Basophils % 0.1 % (0.1-2.0); Eosinophils % 0.1 % (0.1-12.0); Hematocrit 40.3 % (37.0-47.0); Lymphocytes # 1.8 K/mm3 (0.7-4.5); Lymphocytes % 14.9 % (10-50); Mean Corpuscular HGB Conc 32.3 g/dL (31.8-35.4); Mean Corpuscular Hemoglobin 28.2 pg (27.0-31.2); Mean Corpuscular Volume 87.4 fl (81-99); Mean Platelet Volume 8.7 fl (7.4-10.4); Monocytes # 0.3 K/mm3 (0.1-1.0); Monocytes % 2.8 % (1.7-9.3); Neutrophils # 9.8 K/mm3 (1.8-7.8); Neutrophils % 82.1 % (37.0-80.0); Platelet Count 275 K/mm3 (142-424); Red Blood Count 4.62 M/mm3 (4.20-5.40); Red Cell Distribution Width 14.6 % (11.5-17.5)
[2020-10-25 10:38] LABS: Chloride 92 mmol/L (98-107); Sodium 134 mmol/L (136-145)
[2020-10-25 10:39] LABS: Potassium 3.3 mmoL/L (3.5-5.1)
[2020-10-25 10:41] LABS: Blood Urea Nitrogen 22 mg/dl (7-17); Creatinine Clearance Estimated 33 mL/min (50-200); Estimated Glomerular Filt Rate 43 ml/min (>60); GFR (African American) 52 ML/MIN (>60)
[2020-10-25 10:42] LABS: Anion Gap 18.3 mEq/L (5-15); Calcium 9.6 mg/dl (8.4-10.2); Carbon Dioxide 27 mmol/L (22.0-30.0); Glucose 195 mg/dl (74-100)
--- NOTE | 2020-10-25 10:43 | CT_ITS ---
PROCEDURE: CT HEAD/BRAIN WO CON CLINICAL INDICATION: syncope COMPARISON: CT HEADWO CT head/brain wo con from 10/30/2017 MR BRAINWO MR head/brain wo con from 04/19/2018 TECHNIQUE: Axial images obtained. All CT scans at the facility use one or more dose reduction, viz: automated exposure control, ma/kV adjustment per patient size (including targeted exams where dose is matched to indication, i.e. head), or iterative reconstruction technique. FINDINGS: There is a large temporal lobe intraparenchymal hemorrhage measuring approximately 4 cm AP and 3 cm transverse. There is also associated hemorrhage within the right lateral ventricle within the body, posterior horn, and temporal horn of the lateral ventricle. Small amount of blood is present within the interhemispheric fissure posteriorly. Small amount blood is present in the 4th ventricle. Considerable artifact is present from a cochlear implant on the right There is low-density changes in the periventricular region consistent with ischemic gliotic change from microvascular disease. In the right frontal lobe there is an area of decreased attenuation measuring 3.3 by 2 cm. This is anterior to the temporal lobe hemorrhage. This could be related to an intracranial mass versus an atypical presentation of edema. This area was not present on the previous study of 10/30/2017. Encephalomalacia changes are present in the right frontal lobe medially. There is mild midline shift toward the left by approximately 6 mm. IMPRESSION: 1. Acute intracranial hemorrhage with intraparenchymal hemorrhage of the right temporal lobe and intraventricular hemorrhage. There is mild midline shift to the left of 5-6 mm 2. 3 x 2 cm area of decreased attenuation in the right frontal lobe possibly due to an atypical presentation of edema and encephalomalacia change together versus a mass in the right frontal lobe. MRI may provide further evaluation. 3. Dr. Velázquez in the ER was notified of the above findings by telephone 10/25/2020 at 11 a.m. Dictated by: Jai Sifuentes MD 10/25/2020 11:19 Jai Sifuentes MD in [place] 10/25/2020 11:19
[2020-10-25 10:48] LABS: Amorphous Sediment,Urine 1+ /lpf
[2020-10-25 10:52] VITALS: BP 124/67; PULSE 72; O2SAT 98
[2020-10-25 10:54] LABS: Troponin I 0.08 ng/ml (0.00-0.034)
--- NOTE | 2020-10-25 10:55 | PC.NURSE ---
pt being taken to ct
[2020-10-25 11:26] VITALS: BP 135/79; PULSE 69; O2SAT 98
--- NOTE | 2020-10-25 11:27 | PC.NURSE ---
dr Velázquez talking to [facility] MDs for transfer of patient for head bleed.
[2020-10-25 11:33] VITALS: BP 151/82; PULSE 66; O2SAT 97
--- NOTE | 2020-10-25 11:33 | PC.NURSE ---
Dr Soto accepting pt to [facility] and call report to ER
--- NOTE | 2020-10-25 11:49 | PC.NURSE ---
Josesito notified of transfer from ER to [facility]
[2020-10-25 11:52] VITALS: BP 151/82; PULSE 62; RESP 17; TEMP 36.8; O2SAT 98
== END 2020-10-25 12:12 | disposition short-term general hospital (02) ==
PROVIDERS: Emergency Provider Family Medicine; PCP Emergency Medicine
DX: I62.9 Nontraumatic intracranial hemorrhage, unspecified (principal); I61.5 Nontraumatic intracerebral hemorrhage, intraventricular; G93.5 Compression of brain; Z20.822 Contact with and (suspected) exposure to COVID-19; I25.10 Atherosclerotic heart disease of native coronary artery without angina pectoris; Z86.73 Personal history of transient ischemic attack (TIA), and cerebral infarction without residual deficits; E78.5 Hyperlipidemia, unspecified; I10 Essential (primary) hypertension; E03.9 Hypothyroidism, unspecified; Z79.899 Other long term (current) drug therapy
CPT/HCPCS: 70450; 71045; 80048; 81001; 84484; 85025; 93005; 96365; 99284; U0003

== ENCOUNTER 2020-11-25 14:22 | Emergency (ER) | payer MEDICARE, OTHER, SELFPAY ==
[2020-11-25] VITALS (8 sets, daily range): BP systolic 103–142; BP diastolic 54–74; PULSE 70–93; RESP 14–18; TEMP 36.5–36.8; O2SAT 95–99; BMI 20.8
--- NOTE | 2020-11-25 14:42 | PC.NURSE ---
Took pt to restroom. She attempted to urinate but was unable to do so.
--- NOTE | 2020-11-25 14:53 | CT_ITS ---
PROCEDURE: CT HEAD/BRAIN WO CON CLINICAL INDICATION: ams Altered mental status, altered level of consciousness, confusion, disorientation COMPARISON: CT CT HEAD/BRAIN WO CON from 10/25/2020 TECHNIQUE: Axial images obtained. All CT scans at the facility use one or more dose reduction, viz: automated exposure control, ma/kV adjustment per patient size (including targeted exams where dose is matched to indication, i.e. head), or iterative reconstruction technique. FINDINGS: Previously noted parenchymal hemorrhage in the right temporal lobe has decreased in size. There remains some increased density in the right temporal lobe with mild mass effect and mild compression upon the temporal horn of the right lateral ventricle. There is some edema around an area of persistent slight increased density in the right temporal lobe which could represent resolving hematoma or a temporal lobe mass. Has the patient had any other interval scans at another institution?. The area of residual density with mild surrounding edema measures approximately 3 cm. Previously noted intraventricular hemorrhage has improved. Low-density changes are present in the right frontal lobe. Subarachnoid hemorrhage has also improved. Prominent low-density changes are present in the periventricular region consistent with ischemic gliotic change from microvascular disease. Ventricles are also somewhat prominent. Developing normal pressure hydrocephalus would be a consideration. 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 Prior right mastoid surgery with some residual fluid density in the right mastoid sinus. No paranasal sinus air-fluid level. IMPRESSION: There has been interval improvement in the right temporal intraparenchymal hemorrhage as well as resolution of the intraventricular hemorrhage and subarachnoid hemorrhage. There does remain some slight increased density in the right temporal lobe with surrounding edema which could represent resolving hematoma or temporal lobe mass. Please correlate with any other interval exams if available. Mild prominence of the ventricles somewhat increased compared to the previous exam. Developing normal pressure hydrocephalus is a consideration. Dictated by: Jai Sifuentes MD 11/25/2020 15:38 Jai Sifuentes MD in [place] 11/25/2020 15:38
--- NOTE | 2020-11-25 15:00 | PC.NURSE ---
pt gone to rad
--- NOTE | 2020-11-25 15:02 | PC.NURSE ---
gone to ct
--- NOTE | 2020-11-25 15:02 | HMH.EDAMS ---
ED Disposition Clinical Impression: Altered mental status Qualifiers: Altered mental status type: disorientation Qualified Code(s): R41.0 - Disorientation, unspecified UTI (urinary tract infection) Qualifiers: Urinary tract infection type: acute cystitis Hematuria presence: with hematuria Qualified Code(s): N30.01 - Acute cystitis with hematuria Disposition: Home, Self-Care Condition on Discharge: Good Instructions: DI for Altered Mental Status Referrals: Jim Otero MD [Primary Care Provider] - - Critical Care Critical Care Time: No Attestation: On 11/25/20, the high probability of a clinically significant, sudden or life threatening deterioration of the following system(s) required my full and direct attention, intervention and personal management. The time I documented below is in addition to time spent performing reported procedures but includes the following listed in this critical care notation. Medical Decision Making - Medical Records Medical records reviewed: Yes: I reviewed the patient's medical records. - José Inquiry Pt receiving controlled substance: No Vital Signs: 11/25/20 14:36 11/25/20 14:55 11/25/20 15:18 Temperature 97.7 F Temperature Source Oral Pulse Rate 92 H 93 H Pulse Rate [Right] 93 H Respiratory Rate 14 18 Blood Pressure 110/64 Blood Pressure [Left Arm] 103/60 L Blood Pressure Mean 75 Blood Pressure Mean [Left Arm] 74 Blood Pressure Source [Left Arm] Automatic Cuff Blood Pressure Position [Left Arm] Sitting 02 Sat by Pulse Oximetry 96 95 96 Oxygen Delivery Method Room Air 11/25/20 15:30 11/25/20 16:00 11/25/20 16:33 Temperature Temperature Source Pulse Rate 76 84 86 Pulse Rate [Right] Respiratory Rate 18 Blood Pressure 120/60 114/65 136/54 L Blood Pressure [Left Arm] Blood Pressure Mean 74 77 81 Blood Pressure Mean [Left Arm] Blood Pressure Source [Left Arm] Blood Pressure Position [Left Arm] 02 Sat by Pulse Oximetry 97 96 99 Oxygen Delivery Method 11/25/20 17:00 Temperature Temperature Source Pulse Rate 77 Pulse Rate [Right] Respiratory Rate Blood Pressure 142/74 H Blood Pressure [Left Arm] Blood Pressure Mean 83 Blood Pressure Mean [Left Arm] Blood Pressure Source [Left Arm] Blood Pressure Position [Left Arm] 02 Sat by Pulse Oximetry 96 Oxygen Delivery Method - Lab Data Lab Results 11/25/20 14:38: WBC 6.9, RBC 4.09 L, Hgb 11.9 L, Hct 35.8 L, MCV 87.6, MCH 29.2, MCHC 33.3, RDW 14.7, Plt Count 207, MPV 8.9, Neut % (Auto) 70.5, Lymph % (Auto) 22.8, [place] % (Auto) 4.8, Eos % (Auto) 1.6, Baso % (Auto) 0.3, Neut # (Auto) 4.9, Lymph # (Auto) 1.6, [place] # (Auto) 0.3, Eos # (Auto) 0.1, Baso # (Auto) 0.0 11/25/20 14:38: Sodium 135 L, Potassium 4.5, Chloride 102, Carbon Dioxide 23, Anion Gap 14.5, BUN 15, Creatinine 1.10 H, Estimated Creat Clear 32, Estimated GFR 47 L, Est GFR ( Amer) 57 L, Glucose 123 H, Calcium 9.7, Total Bilirubin 0.6, AST 31, ALT 20, Alkaline Phosphatase 105, Total Protein 7.4, Albumin 4.1, Globulin 3.3 H, Albumin/Globulin Ratio 1.2 11/25/20 16:36: Urine Color Yellow, Urine Appearance Clear, Urine pH 6.5, Ur Specific [place] 1.020, Urine Protein Negative, Urine Glucose (UA) Negative, Urine Ketones Trace, Urine Blood 2+, Urine Nitrate Negative, Urine Bilirubin Negative, Urine Urobilinogen 0.2, Ur Leukocyte Esterase Trace, Urine RBC 5-10, Urine WBC 3-5, Ur Squamous Epith Cells Occasional, Urine Bacteria None Result diagrams: 11/25/20 14:38 11/25/20 14:38 Orders (Tests/Meds): ED MEDICATIONS Discontinued Medications Generic Name Dose Route Start Last Admin Trade Name Freq PRN Reason Stop Dose Admin Sodium Chloride 1,000 mls @ 999 mls/hr 11/25/20 15:00 11/25/20 15:02 Sod Chlor 0.9% 1000ml Bag IV 11/25/20 16:00 999 mls/hr .Q1H1M CASTILLO Administration - CT Data CT Scan: Head Time Received: 17:[address] Reviewed: Yes: I have reviewed the patient's CT r
[2020-11-25 15:09] LABS: Chloride 102 mmol/L (98-107); Sodium 135 mmol/L (136-145)
[2020-11-25 15:10] LABS: Potassium 4.5 mmoL/L (3.5-5.1)
[2020-11-25 15:11] LABS: Basophils % 0.3 % (0.1-2.0); Eosinophils # 0.1 K/mm3 (0.0-0.4); Eosinophils % 1.6 % (0.1-12.0); Hematocrit 35.8 % (37.0-47.0); Hemoglobin 11.9 g/dL (12.2-16.2); Lymphocytes # 1.6 K/mm3 (0.7-4.5); Lymphocytes % 22.8 % (10-50); Mean Corpuscular HGB Conc 33.3 g/dL (31.8-35.4); Mean Corpuscular Hemoglobin 29.2 pg (27.0-31.2); Mean Corpuscular Volume 87.6 fl (81-99); Mean Platelet Volume 8.9 fl (7.4-10.4); Monocytes # 0.3 K/mm3 (0.1-1.0); Monocytes % 4.8 % (1.7-9.3); Neutrophils # 4.9 K/mm3 (1.8-7.8); Neutrophils % 70.5 % (37.0-80.0); Platelet Count 207 K/mm3 (142-424); Red Blood Count 4.09 M/mm3 (4.20-5.40); Red Cell Distribution Width 14.7 % (11.5-17.5); White Blood Count 6.9 K/mm3 (4.8-10.8)
[2020-11-25 15:12] LABS: Alanine Aminotransferase 20 U/L (12-78); Alkaline Phosphatase 105 U/L (38-126); Anion Gap 14.5 mEq/L (5-15); Aspartate Amino Transferase 31 U/L (14-36); Bilirubin,Total 0.6 mg/dl (0.2-1.3); Blood Urea Nitrogen 15 mg/dl (7-17); Carbon Dioxide 23 mmol/L (22.0-30.0); Creatinine Clearance Estimated 32 mL/min (50-200); Estimated Glomerular Filt Rate 47 ml/min (>60); GFR (African American) 57 ML/MIN (>60)
[2020-11-25 15:13] LABS: Albumin Level 4.1 g/dl (3.5-5.0); Albumin/Globulin Ratio 1.2 (1.1-1.8); Calcium 9.7 mg/dl (8.4-10.2); Globulin 3.3 g/dL (1.3-3.2); Glucose 123 mg/dl (74-100); Total Protein,Serum 7.4 g/dl (6.3-8.2)
--- NOTE | 2020-11-25 15:14 | PC.NURSE ---
pt returning from CT
--- NOTE | 2020-11-25 15:16 | PC.NURSE ---
patient back from CT
--- NOTE | 2020-11-25 15:39 | PC.NURSE ---
Contact number for Granddaughter who cares for pt at home [phone]
--- NOTE | 2020-11-25 16:27 | PC.NURSE ---
pt attempting to urinate at this time.
[2020-11-25 16:51] LABS: Microscopic, Urine URINE MICROSCOPIC (MICROSCOPIC)
[2020-11-25 17:03] LABS: Appearance,Urine CLEAR (Clear); Bilirubin,Urine Negative (Negative); Blood, Urine 2+ (Negative); Color,Urine YELLOW (Yellow); Glucose,Urine (UA) Negative (Negative); Ketones,Urine TRACE (Negative); Leukocyte Esterase,Urine TRACE (Negative); Nitrate,Urine Negative (Negative); PH,Urine 6.5 (5.0-8.5); Protein,Urine Negative (Negative); Urobilinogen,Urine 0.2 EU/dl (0.2)
[2020-11-25 17:15] LABS: Squamous Epithelial Cell,Urine Occasional #/hpf (0-5)
--- NOTE | 2020-11-25 17:17 | PC.NURSE ---
at bedside updating pt's son
== END 2020-11-25 17:45 | disposition home or self-care (01) ==
PROVIDERS: Emergency Provider Emergency Medicine; PCP Emergency Medicine
DX: R41.0 Disorientation, unspecified (principal); N30.01 Acute cystitis with hematuria; G30.9 Alzheimer's disease, unspecified; F02.80 Dementia in other diseases classified elsewhere, unspecified severity, without behavioral disturbance, psychotic disturbance, mood disturbance, and anxiety; I25.10 Atherosclerotic heart disease of native coronary artery without angina pectoris; I10 Essential (primary) hypertension; E78.5 Hyperlipidemia, unspecified; E03.9 Hypothyroidism, unspecified; Z79.899 Other long term (current) drug therapy
CPT/HCPCS: 70450; 80053; 81001; 85025; 96365; 99282

== ENCOUNTER → 2020-12-11 18:03 | Outpatient (CLI) | payer MEDICARE, SELFPAY | PROVIDERS: Visit Provider Emergency Medicine | DX: R82.90 Unspecified abnormal findings in urine (principal) | CPT/HCPCS: 87086 ==

== ENCOUNTER 2021-01-02 16:34 | Emergency (ER) | payer MEDICARE, OTHER, SELFPAY ==
--- NOTE | 2021-01-02 16:33 | ECG_ITS ---
APPROVED REPORT Exam: Resting ECG HR:68 bpm ECG Measurements Heart Rate 68 AXES FL 186 P 37 QRSd 68 QRS -14 QT 422 T 60 QTc 448 Conclusion Normal sinus rhythm Cannot rule out Anterior infarct, age undetermined Abnormal ECG Electronically signed by : Alex Cordova, 01/04/2021 07:31:46
[2021-01-02 16:35] VITALS: BP 117/62; PULSE 87; RESP 14; TEMP 36.6; O2SAT 97; BMI 24.7
--- NOTE | 2021-01-02 17:11 | XR_ITS ---
PROCEDURE INFORMATION: Exam: XR Chest Exam date and time: 01/02/2021 5:11 PM Age: 85 years old Clinical indication: Chest wall pain; Additional info: Fall TECHNIQUE: Imaging protocol: XR of the chest. Views: 1 view. Total images: 1 COMPARISON: CR XR CHEST PORTABLE 10/25/2020 10:29 AM FINDINGS: Tubes, catheters and devices: Loop recorder device projecting over the cardiac silhouette. Lungs: Normal pulmonary expansion. Pulmonary vasculature grossly normal. No gross pulmonary infiltrates. 7 mm nodule in the peripheral right lung base. This is unchanged from comparison radiographs back to 10/30/2017. No further imaging evaluation is required. Pleural spaces: Blunted left lateral costophrenic angle may relate to pleural scarring, atelectasis, or small effusion. No pneumothorax. Heart/Mediastinum: Heart size normal. No tracheal/mediastinal shift. Vasculature: Moderate aortic ectasia/tortuosity. Bones/joints: No acute osseous abnormalities are identified. IMPRESSION: 1. No definite acute process. 2. Slight blunting of the left lateral costophrenic angle may be due to atelectasis or scarring or possibly minimal basilar effusion. 3. No gross rib fractures or pneumothorax.
[2021-01-02 17:29] LABS: Basophils % 0.5 % (0.1-2.0); Eosinophils # 0.2 K/mm3 (0.0-0.4); Eosinophils % 3.8 % (0.1-12.0); Hematocrit 35.1 % (37.0-47.0); Lymphocytes # 1.9 K/mm3 (0.7-4.5); Lymphocytes % 43.5 % (10-50); Mean Corpuscular HGB Conc 34.3 g/dL (31.8-35.4); Mean Corpuscular Hemoglobin 29.5 pg (27.0-31.2); Monocytes # 0.3 K/mm3 (0.1-1.0); Monocytes % 7.1 % (1.7-9.3); Neutrophils % 45.1 % (37.0-80.0); Platelet Count 208 K/mm3 (142-424); Red Blood Count 4.08 M/mm3 (4.20-5.40); White Blood Count 4.4 K/mm3 (4.8-10.8)
[2021-01-02 17:36] LABS: Alanine Aminotransferase 14 U/L (12-78); Albumin Level 3.8 g/dl (3.5-5.0); Albumin/Globulin Ratio 1.2 (1.1-1.8); Alkaline Phosphatase 81 U/L (38-126); Anion Gap 12.4 mEq/L (5-15); Aspartate Amino Transferase 27 U/L (14-36); Bilirubin,Total 0.5 mg/dl (0.2-1.3); Blood Urea Nitrogen 14 mg/dl (7-17); Calcium 8.9 mg/dl (8.4-10.2); Carbon Dioxide 29 mmol/L (22.0-30.0); Chloride 103 mmol/L (98-107); Creatinine Clearance Estimated 41 mL/min (50-200); Estimated Glomerular Filt Rate 80 ml/min (>60); GFR (African American) 97 ML/MIN (>60); Globulin 3.1 g/dL (1.3-3.2); Glucose 117 mg/dl (74-100); Potassium 4.4 mmoL/L (3.5-5.1); Sodium 140 mmol/L (136-145); Total Protein,Serum 6.9 g/dl (6.3-8.2)
[2021-01-02 17:53] LABS: Troponin I < 0.01 ng/ml (0.00-0.034)
[2021-01-02 18:07] LABS: Thyroid Stimulating Hormone < 0.02 uIU/mL (0.465-4.68)
--- NOTE | 2021-01-02 18:22 | HMH.EDCP ---
ED Disposition Clinical Impression: Atypical chest pain Disposition: Still a Patient Condition on Discharge: Good Referrals: Jim Otero MD [Primary Care Provider] - - Critical Care Critical Care Time: No Attestation: On 01/02/21, the high probability of a clinically significant, sudden or life threatening deterioration of the following system(s) required my full and direct attention, intervention and personal management. The time I documented below is in addition to time spent performing reported procedures but includes the following listed in this critical care notation. Medical Decision Making - Medical Records Medical records reviewed: Yes: I reviewed the patient's medical records. - José Inquiry Pt receiving controlled substance: No Vital Signs: 01/02/21 16:35 Temperature 97.8 F Temperature Source Oral Pulse Rate [Radial] 87 Respiratory Rate 14 Blood Pressure [Right Arm] 117/62 Blood Pressure Mean [Right Arm] 80 02 Sat by Pulse Oximetry 97 Oxygen Delivery Method Room Air - Lab Data Lab Results 01/02/21 16:41: WBC 4.4 L, RBC 4.08 L, Hgb 12.0 L, Hct 35.1 L, MCV 86.0, MCH 29.5, MCHC 34.3, RDW 15.0, Plt Count 208, MPV 9.0, Neut % (Auto) 45.1, Lymph % (Auto) 43.5, [place] % (Auto) 7.1, Eos % (Auto) 3.8, Baso % (Auto) 0.5, Neut # (Auto) 2.0, Lymph # (Auto) 1.9, [place] # (Auto) 0.3, Eos # (Auto) 0.2, Baso # (Auto) 0.0 01/02/21 16:41: Sodium 140, Potassium 4.4, Chloride 103, Carbon Dioxide 29, Anion Gap 12.4, BUN 14, Creatinine 0.70, Estimated Creat Clear 41, Estimated GFR 80, Est GFR ( Amer) 97, Glucose 117 H, Calcium 8.9, Total Bilirubin 0.5, AST 27, ALT 14, Alkaline Phosphatase 81, Troponin I < 0.01, Total Protein 6.9, Albumin 3.8, Globulin 3.1, Albumin/Globulin Ratio 1.2, TSH < 0.02 L Result diagrams: 01/02/21 16:41 01/02/21 16:41 Orders (Tests/Meds): ED MEDICATIONS Discontinued Medications Generic Name Dose Route Start Last Admin Trade Name [place]acia PRN Reason Stop Dose Admin Belladonna Alkaloids 60 ml 01/02/21 17:15 01/02/21 17:21 Gi Cocktail 60ml Udc PO 01/02/21 17:16 60 ml ONCE ONE Administration Ibuprofen 400 mg 01/02/21 19:53 Ibuprofen 400 Mg Tablet PO 01/02/21 19:54 ONCE ONE Iopamidol 100 ml 01/02/21 19:03 01/02/21 19:04 Iopamidol-370 (76%);100ml Bottle IV 01/02/21 19:04 100 ml ONCE ONE Administration Simethicone 160 mg 01/02/21 17:15 01/02/21 17:21 Simethicone 80mg Chewable Tablet PO 01/02/21 17:16 160 mg ONCE ONE Administration Sodium Chloride 50 ml 01/02/21 19:03 01/02/21 19:04 0.9 % Sodium Chloride 50 Ml Vial IV 01/02/21 19:04 50 ml ONCE ONE Administration Sodium Chloride 10 ml 01/02/21 19:03 01/02/21 19:04 Sodium Chloride 0.9% 10ml Syr (Rad Only) IV 01/02/21 19:04 10 ml ONCE ONE Administration ORDERS Category Date Time Status Troponin I Q3H Lab 01/02/21 20:15 Ordered Troponin I Q3H Lab 01/02/21 23:15 Ordered Urinalysis and Microscopic Stat Lab 01/02/21 17:11 Ordered - Radiology Data #1 Image(s): Chest Image Reviewed: Yes I have reviewed radiologist's interpretation Preliminary Findings: Abnormal Isolated nodules that will require follow-up. - CT Data CT Scan: Chest Time Received: 20:18 Preliminary Findings: Normal/NAD Findings Narrative: No aortic dissection or pulmonary embolism moderate hiatal hernia with 9 mm lung nodules bilaterally that need follow-up Medical Decision Narrative: 85-year-old female was brought in for evaluation by her family after reporting chest pain that radiated through to her back. CTA chest was performed demonstrating no pulmonary embolism or acute dissection. She does have a moderate hiatal hernia which could be contributing to the pain. She was given simethicone and GI cocktail. Labs are unremarkable and are pending a delta troponin at the time of handoff to oncoming physician. Chest Pain HPI - General Chief Complaint: Chest Pain
--- NOTE | 2021-01-02 18:25 | CT_ITS ---
PROCEDURE INFORMATION: Exam: CTA Chest With Contrast Exam date and time: 01/02/2021 6:25 PM Age: 85 years old Clinical indication: Prior surgery; Patient HX: Chest pain going through back started this morning. R/O dissection; Additional info: Chest pain through to back TECHNIQUE: Imaging protocol: Computed tomographic angiography of the chest with contrast. 3D rendering (Not supervised by radiologist): MIP and/or 3D reconstructed images were created by the technologist. Total images: 221 Radiation optimization: All CT scans at this facility use at least one of these dose optimization techniques: automated exposure control; mA and/or kV adjustment per patient size (includes targeted exams where dose is matched to clinical indication); or iterative reconstruction. Contrast material: ISOVUE; Contrast volume: 100 ml; Contrast route: INTRAVENOUS (IV); COMPARISON: CR XR CHEST PORTABLE 01/02/2021 5:28 PM FINDINGS: Pulmonary arteries: No large central pulmonary emboli were identified. Assessment of the small peripheral subsegmental branches at multiple levels was limited due to gross respiratory motion. Aorta: The aorta enhances appropriately without evidence of dissection or aneurysm. No mediastinal hematoma. Moderate aortic ectasia/tortuosity. Thyroid: The visualized thyroid gland demonstrates no gross abnormality. Lungs: No acute tracheobronchial abnormalities. No gross pulmonary infiltrates or edema pattern. Mild atelectasis in the lung bases. 9 x 6 mm noncalcified pulmonary nodule in the lateral right lower lobe on series 3, image 45. There is a 4.5 mm noncalcified pulmonary nodule in the lingular portion of the left upper lobe. For patients at low risk (minimal or absent history of smoking and of other known risk factors), recommend CT at 3-6 months, then consider CT at 18-24 months. For patients at high risk (history of smoking or of other known risk factors), recommend CT at 3-6 months, then CT at 18-24 months. (Joanna et al., Fleischner Society, 2017). Pleural spaces: No pleural effusion. No pneumothorax. Heart: Heart size upper limits of normal. Moderate coronary artery calcification in the left main distribution. No pericardial effusion. Mediastinal space: Moderate-sized hiatal hernia. Esophagus otherwise unremarkable. Lymph nodes: No supraclavicular or axillary adenopathy. No mediastinal or hilar adenopathy. Spleen: Granulomatous calcifications in the spleen. Kidneys and ureters: There are bilateral renal cortical lesions demonstrating low density values and circumscribed margins favoring simple renal cysts. No further imaging evaluation is required. Bones/joints: No acute osseous abnormalities are identified. Soft tissues: The soft tissues of the chest wall demonstrate no acute abnormality. Loop recorder in the left anterior subcutaneous fat. IMPRESSION: 1. No large central pulmonary emboli were identified. Assessment of the small peripheral subsegmental branches at multiple levels was limited due to gross respiratory motion. 2. Moderate coronary artery calcification in the left main distribution, or possibly prior stent placement, correlate with procedural history. 3. Bilateral noncalcified pulmonary nodules measuring up to 9 mm. Please see follow-up recommendations above. 4. Moderate-sized hiatal hernia. 5. Additional non-emergent findings detailed above. COMMENTS: Consistent with the [place] [employer]'s Incidental Findings Committee white paper (J [employer] Radiol 2018): Any incidental renal lesion less than 1 cm or classified as too small to characterize, or any incidental cystic renal lesion characterized
[2021-01-02 19:30] VITALS: BP 125/69; PULSE 83; O2SAT 97
[2021-01-02 20:00] VITALS: BP 124/70; PULSE 89; O2SAT 96
[2021-01-02 21:00] VITALS: BP 129/73; PULSE 84; O2SAT 97
[2021-01-02 21:22] LABS: Troponin I < 0.01 ng/ml (0.00-0.034)
[2021-01-02 21:45] VITALS: BP 135/78; PULSE 86; RESP 18; TEMP 36.7; O2SAT 96
== END 2021-01-02 21:45 | disposition home or self-care (01) ==
PROVIDERS: Emergency Provider Student in an Organized Health Care Education/Training Program; PCP Emergency Medicine
DX: R07.89 Other chest pain (principal); I10 Essential (primary) hypertension; E78.5 Hyperlipidemia, unspecified; E03.9 Hypothyroidism, unspecified; Z79.899 Other long term (current) drug therapy
CPT/HCPCS: 71045; 71275; 80053; 84443; 84484; 85025; 93005; 99282; 99283; Q9967

== ENCOUNTER → 2021-04-16 14:05 | Outpatient (CLI) | payer MEDICARE, SELFPAY | PROVIDERS: Visit Provider Emergency Medicine | DX: R82.90 Unspecified abnormal findings in urine (principal) | CPT/HCPCS: 87086 ==

== ENCOUNTER → 2021-05-13 13:36 | Outpatient (CLI) | payer MEDICARE, SELFPAY | PROVIDERS: Visit Provider Nurse Practitioner Family | DX: R41.82 Altered mental status, unspecified (principal) | CPT/HCPCS: 87086 ==

== ENCOUNTER → 2021-10-22 09:37 | Outpatient (CLI) | payer MEDICARE, OTHER, SELFPAY ==
[2021-10-22 18:28] LABS: Basophils # 0.1 K/mm3 (0-0.2); Basophils % 2.7 % (0.1-2.0); Eosinophils # 0.1 K/mm3 (0.0-0.4); Eosinophils % 2.2 % (0.1-12.0); Hematocrit 42.7 % (37.0-47.0); Hemoglobin 13.6 g/dL (12.2-16.2); Lymphocytes # 1.7 K/mm3 (0.7-4.5); Lymphocytes % 37.3 % (10-50); Mean Corpuscular HGB Conc 31.9 g/dL (31.8-35.4); Mean Corpuscular Hemoglobin 29.7 pg (27.0-31.2); Mean Platelet Volume 9.1 fl (7.4-10.4); Monocytes # 0.3 K/mm3 (0.1-1.0); Monocytes % 6.4 % (1.7-9.3); Neutrophils # 2.4 K/mm3 (1.8-7.8); Neutrophils % 51.5 % (37.0-80.0); Platelet Count 279 K/mm3 (142-424); Red Cell Distribution Width 14.2 % (11.5-17.5); White Blood Count 4.7 K/mm3 (4.8-10.8)
[2021-10-22 19:08] LABS: Erythrocyte Sedimentation Rate 41 mm/hr (0-30)
[2021-10-22 19:11] LABS: Alanine Aminotransferase 17 U/L (12-78); Albumin Level 4.8 g/dl (3.5-5.0); Albumin/Globulin Ratio 1.5 (1.1-1.8); Alkaline Phosphatase 129 U/L (38-126); Anion Gap 13.6 mEq/L (5-15); Aspartate Amino Transferase 27 U/L (14-36); Bilirubin,Total 0.4 mg/dl (0.2-1.3); Blood Urea Nitrogen 16 mg/dl (7-17); Calcium 9.6 mg/dl (8.4-10.2); Carbon Dioxide 28 mmol/L (22.0-30.0); Chloride 103 mmol/L (98-107); Estimated Glomerular Filt Rate 68 ml/min (>60); GFR (African American) 83 ML/MIN (>60); Globulin 3.3 g/dL (1.3-3.2); Glucose 90 mg/dl (74-100); Potassium 4.6 mmoL/L (3.5-5.1); Sodium 140 mmol/L (136-145); Total Protein,Serum 8.1 g/dl (6.3-8.2)
[2021-10-22 19:30] LABS: T4 (Thyroxine) 11.6 ug/dl (5.53-11.0)
[2021-10-22 19:44] LABS: Thyroid Stimulating Hormone 0.17 uIU/mL (0.465-4.68)
== END ==
PROVIDERS: Visit Provider Emergency Medicine
DX: R41.82 Altered mental status, unspecified (principal); I95.9 Hypotension, unspecified; Z00.00 Encounter for general adult medical examination without abnormal findings; Z79.899 Other long term (current) drug therapy
CPT/HCPCS: 80053; 84436; 84443; 85025; 85651

== ENCOUNTER → 2021-10-29 07:45 | Outpatient (CLI) | payer MEDICARE, OTHER, SELFPAY ==
--- NOTE | 2021-10-29 07:56 | FL_ITS ---
FINAL REPORT CLINICAL HISTORY: . trouble swallowing..abd pain 0.28 fluoro FINDINGS: ESOPHAGRAM HISTORY: Abdominal pain, nausea. PROCEDURE: The patient ingested barium. Effervescent crystals were also administered. Spot and overhead films were obtained. FINDINGS: The esophagus is normal. There is a large hiatal hernia. There is moderate gastroesophageal reflux. Peristalsis is normal. IMPRESSION: Large hiatal hernia. Moderate esophageal reflux. Reviewed, Interpreted and Dictated by Yasir Ferreira MD Transcribed by ANITRA Montgomery Authenticated by Yasir Ferreira MD on 10/29/2021 11:52:[address] [facility]
== END ==
PROVIDERS: PCP Emergency Medicine; Visit Provider Emergency Medicine
DX: R10.84 Generalized abdominal pain (principal)
CPT/HCPCS: 74220

== ENCOUNTER → 2022-06-19 14:30 | Outpatient (CLI) | payer MEDICARE, OTHER, SELFPAY | PROVIDERS: PCP Nurse Practitioner Family; Visit Provider Nurse Practitioner Family | DX: N30.01 Acute cystitis with hematuria (principal) | CPT/HCPCS: 87086 ==

== ENCOUNTER → 2023-03-05 12:00 | Outpatient (CLI) | payer MEDICARE, OTHER, SELFPAY ==
[2023-03-05 19:27] LABS: Basophils % 0.3 % (0.1-2.0); Eosinophils # 0.1 K/mm3 (0.0-0.4); Eosinophils % 1.5 % (0.1-12.0); Hematocrit 40.8 % (37.0-47.0); Hemoglobin 12.9 g/dL (12.2-16.2); Lymphocytes # 1.6 K/mm3 (0.7-4.5); Lymphocytes % 29.2 % (10-50); Mean Corpuscular HGB Conc 31.6 g/dL (31.8-35.4); Mean Corpuscular Hemoglobin 30.7 pg (27.0-31.2); Mean Corpuscular Volume 97.3 fl (81-99); Mean Platelet Volume 10.3 fl (7.4-10.4); Monocytes # 0.3 K/mm3 (0.1-1.0); Monocytes % 5.7 % (1.7-9.3); Neutrophils # 3.4 K/mm3 (1.8-7.8); Neutrophils % 63.3 % (37.0-80.0); Platelet Count 216 K/mm3 (142-424); White Blood Count 5.3 K/mm3 (4.8-10.8)
[2023-03-05 19:32] LABS: Alanine Aminotransferase 17 U/L (12-78); Albumin Level 4.1 g/dl (3.5-5.0); Albumin/Globulin Ratio 1.4 (1.1-1.8); Alkaline Phosphatase 115 U/L (38-126); Anion Gap 21.6 mEq/L (5-15); Aspartate Amino Transferase 31 U/L (14-36); Bilirubin,Total 0.6 mg/dl (0.2-1.3); Blood Urea Nitrogen 20 mg/dl (7-17); Calcium 9.3 mg/dl (8.4-10.2); Carbon Dioxide 23 mmol/L (22.0-30.0); Chloride 99 mmol/L (98-107); Chol/HDL Ratio 3.1 (1-3.5); Cholesterol 176 mg/dl (140-200); Estimated Glomerular Filt Rate 60 ml/min (>60); GFR (African American) 72 ML/MIN (>60); Globulin 2.9 g/dL (1.3-3.2); HDL Cholesterol 57 mg/dl (40-60); Potassium 4.6 mmoL/L (3.5-5.1); Sodium 139 mmol/L (136-145); Triglycerides 132 mg/dl (30-150); VLDL Cholesterol 26 mg/dL (0-40)
[2023-03-05 19:43] LABS: Direct LDL Cholesterol 88.82 mg/dL (100-129)
[2023-03-05 19:49] LABS: 25-OH Vitamin D, Total 55.9 ng/mL (30-100); T4 (Thyroxine) 13.8 ug/dl (5.53-11.0)
[2023-03-05 20:02] LABS: Thyroid Stimulating Hormone < 0.02 uIU/mL (0.465-4.68)
[2023-03-05 20:47] LABS: Glucose 39 mg/dl (74-100)
== END ==
PROVIDERS: PCP Emergency Medicine; Visit Provider Emergency Medicine
DX: N30.01 Acute cystitis with hematuria (principal); I95.9 Hypotension, unspecified; R41.0 Disorientation, unspecified; E55.9 Vitamin D deficiency, unspecified; Z68.1 Body mass index [BMI] 19.9 or less, adult; Z79.899 Other long term (current) drug therapy
CPT/HCPCS: 80053; 80061; 82306; 84436; 84443; 85025

== ENCOUNTER → 2023-03-06 08:48 | Outpatient (CLI) | payer MEDICARE, OTHER, SELFPAY | PROVIDERS: PCP Emergency Medicine; Visit Provider Emergency Medicine | DX: R41.0 Disorientation, unspecified | CPT/HCPCS: 87086 ==

== ENCOUNTER 2023-03-08 07:16 | Observation (INO) | payer MEDICARE, OTHER, SELFPAY ==
[2023-03-08] VITALS (15 sets, daily range): BP systolic 102–155; BP diastolic 60–87; PULSE 70–102; RESP 17–22; TEMP 36.2–36.7; O2SAT 94–100; BMI 26.1
--- NOTE | 2023-03-08 07:33 | HMH.EDGENADL ---
Discharge Plan Disposition Patient Disposition: Admitted Condition: Fair Chief Complaint: Altered Mental Status Clinical Impressions Clinical Impression: Delirium Discharge ED Provider: Cecy Tompkins Adult HPI General Chief complaint: Altered Mental Status Stated complaint: AO 6:17 bruise on forehead, possible uti Time Seen by Provider: 03/08/23 07:20 History of Present Illness HPI narrative: This 87-year-old female with history of dementia, urinary tract infections, prior intracranial bleed, CAD presents to the emergency department with concerns of being found down in her driveway this morning. Family at bedside reports that patient has been starting to be more confused over the last couple days and on Wednesday, 4 days ago, Dr. Otero prescribed cephalexin for suspected urinary tract infection. Patient has been receiving this medication as directed. Reportedly patient went to bed like normal last night, however when family awoke they found her in the driveway. She is more confused and unable to tell us how long she was outside. They note she has a bruise on her forehead. They are unsure if she is on any blood thinners. Unclear if she lost consciousness. They helped her get up and patient has since been able to walk. Family notes that she has a healing wound on her left elbow from a prior fall, no other injuries were appreciated by them. Related Data Home Medications Medication Instructions Recorded Confirmed vitamin B complex (B 1 tab PO QDAY Supplement 07/09/17 03/05/23 Complex-Vitamin B12 tablet) loratadine 10 mg tablet 10 mg PO DAILY allergies 01/17/20 03/05/23 calcium citrate 200 mg (950 mg) 750 mg PO DAILY 11/19/20 03/05/23 tablet Previous Rx's Medication Instructions Recorded nitroglycerin 0.4 mg sublingual 0.4 mg sublingual Q5M PRN chest 03/26/20 tablet pain #25 tabs pantoprazole 40 mg tablet,delayed 40 mg PO DAILY #30 tabs 10/22/21 release (Protonix) carvedilol 3.125 mg tablet See Rx Instructions .Route 06/22/22 .COMPLEX #540 tabs oxybutynin chloride 5 mg tablet 5 mg PO TID #180 tabs 09/29/22 atorvastatin 20 mg tablet See Rx Instructions .Route 01/28/23 .COMPLEX #30 tabs buspirone 5 mg tablet See Rx Instructions .Route 01/28/23 .COMPLEX #60 tabs cranberry 400 mg capsule 400 mg PO DAILY Supplement #90 caps 01/28/23 ergocalciferol (vitamin D2) 1,250 See Rx Instructions .Route 01/28/23 mcg (50,000 unit) capsule .COMPLEX #4 caps levothyroxine 50 mcg tablet See Rx Instructions .Route 01/28/23 .COMPLEX #30 tabs potassium chloride 10 mEq See Rx Instructions .Route 01/28/23 tablet,extended release .COMPLEX #60 tabs vitamin E (dl, acetate) 90 mg (200 270 mg PO DAILY Supplement 90 days 01/28/23 unit) capsule #270 caps donepezil 10 mg tablet See Rx Instructions .Route 02/23/23 .COMPLEX #90 tabs levetiracetam 500 mg tablet See Rx Instructions .Route 02/23/23 .COMPLEX #180 tabs nifedipine 30 mg tablet,extended See Rx Instructions .Route 02/23/23 release .COMPLEX #90 tabs cephalexin 500 mg capsule 500 mg PO TID #21 caps 03/05/23 mupirocin 2 % topical ointment 1 applic topical BID #22 grams 03/05/23 Allergies Allergy/AdvReac Type Severity Reaction Status Date / Time No Known Allergies Allergy Verified 03/05/23 11:09 [facility] Disclaimer: The information contained in this section may have been updated after the patient was seen, as this information can be updated by other users. Medical History (Updated 03/08/23 @ 09:41 by Cecy Tompkins MD) Coronary arteriosclerosis Dizziness Dyspnea Hyperlipidemia Hypertensive heart disease without heart failure Pre-op evaluation Surgical History (Updated 03/08/19 @ 13:43 by Indira Valdes RN) Stented coronary artery Social History Smoking Status: Never smoker second hand exposure: No alcohol intake: never counseling provided: none substance use type: denies use current occupational status: retired Travel
--- NOTE | 2023-03-08 07:35 | CT_ITS ---
PROCEDURE INFORMATION: Exam: CT Head Without Contrast Exam date and time: 03/08/2023 7:56 AM Age: 87 years old Clinical indication: Injury or trauma; Fall TECHNIQUE: Imaging protocol: Computed tomography of the head without contrast. Radiation optimization: All CT scans at this facility use at least one of these dose optimization techniques: automated exposure control; mA and/or kV adjustment per patient size (includes targeted exams where dose is matched to clinical indication); or iterative reconstruction. REPORTING DATA: Count of CT and Cardiac NM exams in prior 12 months: This patient has received 0 known CTs and 0 known cardiac nuclear medicine studies in the 12 months prior to the current study. COMPARISON: CT HEAD/BRAIN WO CON 11/25/2020 3:03 PM FINDINGS: Tubes, catheters and devices: The study is limited from beam hardening artifact related to electronic cochlear implant hardware in the right parietal subcutaneous tissues. The patient is post partial mastoidectomy on the right and placement of a cochlear implant. Brain: See Cerebral ventricles finding. Cerebral ventricles: There is encephalomalacia in the right frontal and temporal lobes with a atrophic dilatation of the temporal horns of the lateral ventricles [id number]. There is fairly extensive hemispheric white matter hypodensity likely reflecting microvascular ischemic change. There is no mass effect, midline shift, acute hemorrhage, extra-axial fluid collection or acute lobar infarct. Paranasal sinuses: Visualized sinuses are unremarkable. No fluid levels. Mastoid air cells: Visualized mastoid air cells are well aerated. Orbital cavities: Patient is post bilateral cataract surgery. Bones/joints: Unremarkable. No acute fracture. Soft tissues: Unremarkable. IMPRESSION: No acute intracranial process.
--- NOTE | 2023-03-08 07:35 | CT_ITS ---
PROCEDURE INFORMATION: Exam: CT Cervical Spine Without Contrast Exam date and time: 03/08/2023 7:59 AM Age: 87 years old Clinical indication: Injury or trauma; Fall TECHNIQUE: Imaging protocol: Computed tomography of the cervical spine without contrast. Radiation optimization: All CT scans at this facility use at least one of these dose optimization techniques: automated exposure control; mA and/or kV adjustment per patient size (includes targeted exams where dose is matched to clinical indication); or iterative reconstruction. REPORTING DATA: Count of CT and Cardiac NM exams in prior 12 months: This patient has received 0 known CTs and 0 known cardiac nuclear medicine studies in the 12 months prior to the current study. COMPARISON: CT HEAD/BRAIN WO CON 03/08/2023 7:56 AM FINDINGS: Bones/joints: There is no evidence for acute cervical fracture. Patchy osteopenia is noted. There is lower cervical spondylosis with disc space narrowing, osteophytosis, facet arthropathy and uncovertebral spurring. Lungs: Lung apices are normal. Soft tissues: Unremarkable. IMPRESSION: No evidence for acute cervical fracture.
--- NOTE | 2023-03-08 07:41 | XR_ITS ---
PROCEDURE INFORMATION: Exam: XR Chest Exam date and time: 03/08/2023 8:00 AM Age: 87 years old Clinical indication: Other: AMS; Additional info: Fall AMS TECHNIQUE: Imaging protocol: Radiologic exam of the chest. Views: 1 view. COMPARISON: CR XR CHEST PORTABLE 01/02/2021 5:28 PM FINDINGS: Tubes, catheters and devices: Cardiac monitoring device overlies the medial left hemidiaphragm. Lungs: Unremarkable. No consolidation. Pleural spaces: Unremarkable. No pleural effusion. No pneumothorax. Heart/Mediastinum: Unremarkable. No cardiomegaly. Bones/joints: Degenerative changes are noted in the bones. IMPRESSION: No acute cardiopulmonary disease.
[2023-03-08 07:58] LABS: Basophils % 0.4 % (0.1-2.0); Eosinophils # 0.1 K/mm3 (0.0-0.4); Eosinophils % 1.1 % (0.1-12.0); Hematocrit 39.9 % (37.0-47.0); Lymphocytes # 1.9 K/mm3 (0.7-4.5); Lymphocytes % 35.4 % (10-50); Mean Corpuscular HGB Conc 32.7 g/dL (31.8-35.4); Mean Corpuscular Hemoglobin 31.3 pg (27.0-31.2); Mean Corpuscular Volume 95.8 fl (81-99); Monocytes # 0.3 K/mm3 (0.1-1.0); Monocytes % 5.8 % (1.7-9.3); Neutrophils # 3.1 K/mm3 (1.8-7.8); Neutrophils % 57.3 % (37.0-80.0); Platelet Count 197 K/mm3 (142-424); Red Blood Count 4.16 M/mm3 (4.20-5.40); White Blood Count 5.4 K/mm3 (4.8-10.8)
[2023-03-08 08:09] LABS: Lactic Acid 1.4 mmol/L (0.7-2.1)
[2023-03-08 08:10] LABS: Alanine Aminotransferase 23 U/L (12-78); Albumin Level 4.4 g/dl (3.5-5.0); Albumin/Globulin Ratio 1.1 (1.1-1.8); Alkaline Phosphatase 139 U/L (38-126); Anion Gap 20.2 mEq/L (5-15); Aspartate Amino Transferase 36 U/L (14-36); Bilirubin,Total 0.6 mg/dl (0.2-1.3); Blood Urea Nitrogen 24 mg/dl (7-17); Calcium 9.6 mg/dl (8.4-10.2); Carbon Dioxide 22 mmol/L (22.0-30.0); Chloride 99 mmol/L (98-107); Creatine Kinase 103 U/L (30-135); Creatinine Clearance Estimated 31 mL/min (50-200); Estimated Glomerular Filt Rate 43 ml/min (>60); GFR (African American) 52 ML/MIN (>60); Globulin 3.9 g/dL (1.3-3.2); Glucose 99 mg/dl (74-100); Potassium 4.2 mmoL/L (3.5-5.1); Sodium 137 mmol/L (136-145); Total Protein,Serum 8.3 g/dl (6.3-8.2)
[2023-03-08 08:11] LABS: VBG Base Excess -4.8 mmol/L (-2.4-2.3); VBG HCO3 21.4 mmol/L (23-30); VBG Oxygen Saturation 86.1 % (50-70); VBG PCO2 42.5 mmol/L (35-51); VBG PH 7.32 mmol/L (7.31-7.41); VBG Total CO2 22.7 mmol/L (23-27)
[2023-03-08 08:11] LABS: INR 1.06 (0.9-1.1); Prothrombin Time 11.4 seconds (10.1-12.5)
[2023-03-08 08:18] LABS: Microscopic, Urine URINE MICROSCOPIC (MICROSCOPIC)
--- NOTE | 2023-03-08 08:32 | ECG_ITS ---
APPROVED REPORT Exam: Resting ECG HR:74 bpm ECG Measurements Heart Rate 74 AXES KS 209 P 52 QRSd 76 QRS -7 QT 415 T 50 QTc 442 Conclusion SINUS RHYTHM LOW QRS VOLTAGE IN PRECORDIAL LEADS [QRS DEFLECTION < 1.0 mV IN CHEST LEADS] POSSIBLE ANTERIOR MYOCARDIAL INFARCTION , PROBABLY OLD [30 ms Q WAVE IN V3/V4, OR R < 0.2 mV IN V4] BORDERLINE ECG UNCONFIRMED REPORT Electronically signed by : Alex Cordova MD 03/08/2023 15:49:24
[2023-03-08 08:57] LABS: Appearance,Urine Clear (Clear); Bilirubin,Urine Negative (Negative); Blood, Urine Trace (Negative); Color,Urine y (Yellow); Glucose,Urine (UA) Negative (Negative); Ketones,Urine 1+ (Negative); Leukocyte Esterase,Urine Negative (Negative); Nitrate,Urine Negative (Negative); Protein,Urine Negative (Negative); RBC,Urine Occasional #/hpf (0-3); Urobilinogen,Urine 0.2 EU/dl (0.2)
[2023-03-08 08:58] LABS: Bacteria,Urine Trace /lpf; Squamous Epithelial Cell,Urine Occasional #/hpf (0-5)
[2023-03-08 09:20] LABS: Ammonia < 9 umol/L (9-30)
--- NOTE | 2023-03-08 09:29 | PC.NURSE ---
notified care management of admission
--- NOTE | 2023-03-08 09:47 | PC.NURSE ---
pt ambulated with assistance to bathroom
--- NOTE | 2023-03-08 09:48 | EXP.HP ---
History of Present Illness *Admission Date: 03/08/23 *Reason for visit:: altered mental status *History of present illness: Ms. Dhillon is an 87 year old female with a past medical history of mild dementia, h/o intracranial hemorrhage 2 years ago, CAD s/p FROILAN 2014, JAREK, hld, htn, hypothyroidism and bilateral hearing loss. She was found by her son earlier this morning on the ground confused. She has been confused over the past few days. Currently she speaks fluently but speaks of people in the room who are not actually there. At baseline the patient is oriented x 3, does not have hallucinations and ambulates without any assistive device. She lives in her own home and her granddaughter lives in her basement; her son Roe Dhillon checks on her frequently and helps her with medications and meals. Family was concerned that the patient had a UTI; she was prescribed keflex and has been taking that over the past few days. Urine culture from 03/06/23 is without growth. U/A today is without any wbcs but does have 1+ ketones. Initial workup: CBC with 5.4K WBCs, Hgb 13 CMP with Na 137, K 4.2, BUN 24, Cr 1.2, glucose 99 ammonia <9 TSH <0.02, t4 13.8 VBG pCO2 42 CK 103 UA with 1+ketones, no wbcs UDS negative CT Head/C-spine - no acute abnormality CXR - no acute cardiopulmonary process [facility] Disclaimer: The information contained in this section may have been updated after the patient was seen, as this information can be updated by other users. Medical History (Updated 03/08/23 @ 12:36 by Merrill Oneil MD) Coronary arteriosclerosis Dementia Dizziness Dyspnea GERD (gastroesophageal reflux disease) Hyperlipidemia Hypertensive heart disease without heart failure Pre-op evaluation Thyroid disease Surgical History Stented coronary artery Family History (Updated 03/08/23 @ 11:16 by Christen Liang RN) Other Family history of hyperlipidemia Family history of hypertension Social History (Updated 03/08/23 @ 11:17 by Christen Liang RN) Smoking Status: Never smoker second hand exposure: No alcohol intake: never counseling provided: none substance use type: denies use current occupational status: retired Travel in the last 8 weeks: None household members: family housing: house current occupational exposures/hazards: No caffeine: No Review of Systems Review of Systems Review of systems:: unable to obtain (The patient doesn't respond appropriately to my questions.) ENT Ears, Nose, Mouth, and Throat: Reports abnormal hearing (Family reports poor hearing) *Neurologic Neurologic: Reports abnormal hearing (Family reports poor hearing), Reports confusion and Reports memory loss Psychiatric Psychiatric: Reports confusion and Reports memory loss Meds Home Medications and Allergies Home Medications Medication Instructions Recorded Confirmed Type vitamin B complex (B 1 tab PO QDAY Supplement 07/09/17 03/08/23 History Complex-Vitamin B12 tablet) loratadine 10 mg tablet 10 mg PO DAILY allergies 01/17/20 03/08/23 History nitroglycerin 0.4 mg sublingual 0.4 mg sublingual Q5M PRN chest 03/26/20 03/08/23 Rx tablet pain #25 tabs calcium citrate 200 mg (950 mg) 750 mg PO DAILY Supplement 11/19/20 03/08/23 History tablet cranberry 400 mg capsule 400 mg PO DAILY Supplement #90 caps 01/28/23 03/08/23 Rx vitamin E (dl, acetate) 90 mg (200 270 mg PO DAILY Supplement 90 days 01/28/23 03/08/23 Rx unit) capsule #270 caps atorvastatin 20 mg tablet 20 mg PO DAILY Cholesterol 03/08/23 03/08/23 History buspirone 5 mg tablet 5 mg PO BID Mood 03/08/23 03/08/23 History carvedilol 3.125 mg tablet 3.125 mg PO BID Heart Rate 03/08/23 03/08/23 History cephalexin 500 mg capsule 500 mg PO TID Infection 03/08/23 03/08/23 History donepezil 10 mg tablet 10 mg PO DAILY Dementia 03/08/23 03/08/23 History ergocalciferol (vitamin D2) 1,250 50,000 unit PO WEEKLY Supplement 03/08/23 03/08/23 Histo
--- NOTE | 2023-03-08 10:09 | HMH.PHAINT1 ---
Pharmacy Intervention Comments: Medication history complete, medications confirmed with fill history. - Tamara Hubbard, PharmD Candidate 2023
[2023-03-08 10:30] LABS: Amphetamine/Metha Screen,Urine Negative ng/ml (<1000)
[2023-03-08 10:32] LABS: Cannabinoid Screen,Urine Negative ng/ml (<50)
[2023-03-08 10:33] LABS: Barbiturates Screen,Urine Negative ng/ml (<200); Benzodiazepines Screen,Urine Negative ng/ml (<200)
[2023-03-08 10:34] LABS: Cocaine Screen,Urine Negative ng/ml (<300)
[2023-03-08 10:35] LABS: Methadone Screen,Urine Negative ng/ml (<300); Opiate Screen,Urine Negative ng/ml (<300)
[2023-03-08 10:36] LABS: Phencyclidine Screen,Urine Negative ng/ml (<25)
--- NOTE | 2023-03-08 16:23 | PC.NURSE ---
Pt is alert to self only. Has been hallucinating. She's MECHOOPDA. Communicates some with white board. Pt has pulled IV out this shift. #22 placed in LAC. Has ambulated to BR with assist x1. Safety measures in place. Call light within reach.
--- NOTE | 2023-03-08 20:40 | PC.NURSE ---
patient mumbling and talking to imagined people.
--- NOTE | 2023-03-08 22:57 | PC.NURSE ---
PATIENT IN CONSTANT MOTION. PULLING AT IVs. TAKING GOWN OFF. TRYING TO GET OOB. TALKING TO THE ROOM. MEDICATED WITH BENADRYL 25 MG IVP AT 2251 ORDERED BY YANIRA Anderson
[2023-03-09] VITALS (7 sets, daily range): BP systolic 132–153; BP diastolic 68–79; PULSE 60–90; RESP 16–18; TEMP 36.5; O2SAT 98–99; BMI 26.2
--- NOTE | 2023-03-09 01:26 | PC.NURSE ---
PATIENT RECEIVED BENADRYL 25MG IVP AT 2251 WHICH IS FINALLY STARTING TO WORK. AWAKE BUT STILL PULLING AT GOWN AND IV PERIODICALLY CONTINUES TO TALK TO IMAGINARY PEOPLE BUT NOT BAD. BED ALARM IN USE.
--- NOTE | 2023-03-09 03:23 | PC.NURSE ---
ASLEEP AT 0320.
--- NOTE | 2023-03-09 06:39 | PC.NURSE ---
PATIENT WENT TO SLEEP AT 0320. BECOMES ANGRY AND COMBATIVE IF DISTURBED. REFUSED 4AM VITALS. REFUSED 6 AM LABS. HITTING AND KICKING AND TRYING TO BITE.
--- NOTE | 2023-03-09 07:36 | PC.NURSE ---
pt refused vitals at this time told staff to get out.
--- NOTE | 2023-03-09 07:52 | PC.NURSE ---
Pt resistive to care. Staff unable to obtain VS this AM.
--- NOTE | 2023-03-09 08:49 | PC.NURSE ---
attempted to obtain VS, Pt resistant to care, Pt attempted to hit and bite staff, refusing PO meds at this time
--- NOTE | 2023-03-09 10:55 | SW/DCPLANNER ---
Addendum entered by [facility] 03/10/23 10:53: I have updated patient's son regarding transfer plans and transportation via EMS. Addendum entered by [facility] 03/10/23 10:12: EKG is resulted and COVID is negative. Patient will transfer via EMS to [facility] today to [facility] Unit 5th floor. phone number for report: [phone] fax number: [phone] Addendum entered by [facility] 03/10/23 09:20: Dayron melgar/ [facility] stated that Dr Jaime is willing to accept this patient for transfer pending EKG and COVID swab: additional testing has been ordered and will be faxed once completed/resulted. Addendum entered by [facility] 03/10/23 08:13: Updated patient information has been faxed to Dayron melgar/ [facility] including a copy of son's POA paperwork. Addendum entered by [facility] 03/09/23 14:41: Patient will also require a negative COVID swab and updated EKG prior to discharging to [facility] if accepted. Addendum entered by [facility] 03/09/23 14:39: Son is now agreeable to [facility] and is searching for POA paperwork. Dayron has requested updated information from me: this will be faxed once available in computer. Addendum entered by [facility] 03/09/23 11:45: [facility] (Dayron [phone]) stated that she will need official POA paperwork prior to moving forward w/ referral. I called and spoke w/ patient's son: he stated he is POA, unsure where the paperwork is and unsure if he wants patient to go to a [facility]. I explained the need for this resource and that I would have Dr Borrero call and speak with him. I have updated Dr Borrero regarding situation. Original Note: Per MD request patient information has been faxed Intake at [facility]. I will follow up with Intake and MD once patient information is reviewed.
--- NOTE | 2023-03-09 11:26 | PC.NURSE ---
pt is refusing everything we offer. pt is trying to hit staff as well
--- NOTE | 2023-03-09 11:52 | PC.NURSE ---
Report given to Ady Barfield RN
--- NOTE | 2023-03-09 14:51 | EXP.ACUTE.PN ---
Subjective *Date: 03/09/23 *Time: 14:57 Interval history: Patient has had mixed response to staff this morning. Was swatting at nursing overnight to leave her alone. Is very hard of hearing but appears disoriented to location and reason for being at the hospital. When family was at bedside after lunch, she answered a few questions that were written on a white board. Otherwise has not been cooperative with staff. Not answering questions of examiner. Refusing labs this morning and vitals. Slept poorly overnight, was restless. Medical Exam Vital signs and Labs for Last 24 Hours: Vital Signs Temp Pulse Pulse Pulse Pulse Resp BP 03/09/23 11:00 03/09/23 08:00 60 03/09/23 08:56 03/09/23 06:37 03/09/23 04:52 03/09/23 04:00 67 03/09/23 02:44 03/09/23 00:52 03/09/23 00:00 76 03/09/23 00:00 97.7 F 79 18 132/68 03/08/23 23:00 03/08/23 21:00 03/08/23 20:00 71 03/08/23 20:00 98.1 F 79 86 102 H 17 102/60 L 03/08/23 19:53 03/08/23 18:46 03/08/23 16:08 90 03/08/23 17:00 03/08/23 15:38 97.4 F L 90 22 03/08/23 15:00 BP BP Pulse Ox O2 Del Method 03/09/23 11:00 Room Air 03/09/23 08:00 03/09/23 08:56 Room Air 03/09/23 06:37 Room Air 03/09/23 04:52 Room Air 03/09/23 04:00 03/09/23 02:44 Room Air 03/09/23 00:52 Room Air 03/09/23 00:00 03/09/23 00:00 99 Room Air 03/08/23 23:00 Room Air 03/08/23 21:00 Room Air 03/08/23 20:00 03/08/23 20:00 114/70 110/60 97 Room Air 03/08/23 19:53 96 Room Air 03/08/23 18:46 Room Air 03/08/23 16:08 03/08/23 17:00 Room Air 03/08/23 15:38 155/72 H 96 Room Air 03/08/23 15:00 Room Air Intake and Output 03/08/23 03/09/23 03/09/23 23:59 07:59 15:59 Intake Total 120 / 360 1070 / 1070 0 / 1070 Output Total 0 / 0 1 / 1 0 / 1 Balance 120 / 360 1069 / 1069 0 / 1069 Intake: Intake, Oral Amount 120 / 360 120 / 120 0 / 120 Intake, Total IV Amount 950 / 950 0.9 % Sodium Chloride 1000ML 1, 950 / 950 000 ml @ 75 mls/hr IV .[id number] [facility] Rx#:[id number] Output: Output, Urine Amount 0 / 0 1 / 1 0 Other: Number of Voids 1 Number of Unmeasured Voids 1 1 1 Weight 56.699 kg Patient Weight 03/09/23 23:59 Weight 56.699 kg I & O for Labs for Last 24 Hours: Intake & Output 03/06/23 03/07/23 03/08/23 03/09/23 23:59 23:59 23:59 23:59 Intake Total 240 / 360 1070 / 1070 Output Total 0 / 0 1 1 Balance 240 / 360 1069 / 1069 Weight 56.699 kg 56.699 kg Constitutional: Present no acute distress and average body habitus; Absent cooperative Head: Present atraumatic and normocephalic Respiratory: Present normal respiratory effort; Absent rhonchi, wheezes or crackles Cardiac: Present Reg Rate and Rhythm GI: Present normal bowel sounds; Absent tenderness Extremities: Present normal inspection and full ROM; Absent edema Skin: Present intact; Absent erythema Neuro: Present Grossly Intact, alert, awake and moves all extremities Comment:: Very hard of hearing. Answers intermittently appropriate to questions. Responds better to family than hospital staff. Assessment and Plan *Assessment and plan (1) ROSALIE (acute kidney injury): Status: Acute Category: Medical Code(s): N17.9 - Acute kidney failure, unspecified (2) Ketosis: Status: Acute Category: Medical Code(s): E88.89 - Other specified metabolic disorders (3) Hyperthyroidism: Status: Acute Category: Medical Code(s): E05.90 - Thyrotoxicosis, unspecified without thyrotoxic crisis or storm (4) Hearing impairment: Status: Chronic Qualifiers: Hearing loss type: unspecified Laterality: bilateral Qualified Code(s): H91.93 - Unspecified hearing loss, bilateral Category: Medical
--- NOTE | 2023-03-09 18:38 | PC.NURSE ---
Patient has been confused and combative throughout shift. Patient growling and trying to bite nurses, patient refused oral medicine throughout shift.
[2023-03-10] VITALS (7 sets, daily range): BP systolic 112–140; BP diastolic 67–85; PULSE 63–80; RESP 16–18; TEMP 36.3–37; O2SAT 95–100; BMI 22.4
--- NOTE | 2023-03-10 07:27 | EXP.ACUTE.PN ---
Subjective *Date: 03/10/23 *Time: 07:27 Medical Exam Vital signs and Labs for Last 24 Hours: Vital Signs Temp Pulse Pulse Pulse Resp BP Pulse Ox 03/10/23 07:00 03/10/23 07:20 97.4 F L 63 16 140/85 03/10/23 06:47 68 03/10/23 05:00 03/10/23 04:00 97.6 F 78 18 134/68 95 03/10/23 03:00 03/10/23 01:00 03/10/23 00:00 80 03/09/23 20:00 64 03/09/23 23:00 03/09/23 21:00 03/09/23 21:31 03/09/23 20:00 90 18 153/78 H 03/09/23 16:00 80 03/09/23 12:00 67 03/09/23 15:26 66 16 153/79 H 98 03/09/23 11:00 03/09/23 08:00 60 03/09/23 08:56 O2 Del Method 03/10/23 07:00 Room Air 03/10/23 07:20 03/10/23 06:47 03/10/23 05:00 Room Air 03/10/23 04:00 Room Air 03/10/23 03:00 Room Air 03/10/23 01:00 Room Air 03/10/23 00:00 03/09/23 20:00 03/09/23 23:00 Room Air 03/09/23 21:00 Room Air 03/09/23 21:31 Room Air 03/09/23 20:00 03/09/23 16:00 03/09/23 12:00 03/09/23 15:26 Room Air 03/09/23 11:00 Room Air 03/09/23 08:00 03/09/23 08:56 Room Air Intake and Output 03/09/23 03/09/23 03/10/23 15:59 23:59 07:59 Intake Total 0 / 1070 0 / 0 Output Total 0 / 1 0 / 1 Balance 0 / 1069 0 / 1069 0 / 0 Intake: Intake, Oral Amount 0 / 120 0 / 0 Output: Output, Urine Amount 0 / 1 0 / 1 Other: Number of Unmeasured Voids 1 1 Weight 48.308 kg Patient Weight 03/10/23 23:59 Weight 48.308 kg I & O for Labs for Last 24 Hours: Intake & Output 03/07/23 03/08/23 03/09/23 03/10/23 23:59 23:59 23:59 23:59 Intake Total 240 / 360 1070 / 1070 0 / 0 Output Total 0 / 0 1 / 1 Balance 240 / 360 1069 / 1069 0 / 0 Weight 56.699 kg 56.699 kg 48.308 kg
--- NOTE | 2023-03-10 08:15 | ECG_ITS ---
APPROVED REPORT Exam: Resting ECG HR:74 bpm ECG Measurements Heart Rate 74 AXES AR 196 P 68 QRSd 68 QRS -25 QT 391 T 68 QTc 419 Conclusion SINUS RHYTHM INFERIOR MYOCARDIAL INFARCTION , PROBABLY OLD [40+ ms Q WAVE AND/OR ST/T ABNORMALITY IN II/aVF] ABNORMAL ECG UNCONFIRMED REPORT Electronically signed by : Alex Cordova MD 03/11/2023 20:00:55
[2023-03-10 08:25] LABS: Coronavirus 19, PCR Not Detected (NotDetected); Influenza A, PCR Not Detected (NotDetected); Influenza B, PCR Not Detected (NotDetected)
--- NOTE | 2023-03-10 09:56 | EXP.DC.SUM ---
General Admission date:: 03/08/23 Discharge date: 03/10/23 HPI HPI HPI: Ms. Dhillon is an 87 year old female with a past medical history of mild dementia, h/o intracranial hemorrhage 2 years ago, CAD s/p FROILAN 2014, JAREK, hld, htn, hypothyroidism and bilateral hearing loss. She was found by her son earlier this morning on the ground confused. She has been confused over the past few days. Currently she speaks fluently but speaks of people in the room who are not actually there. At baseline the patient is oriented x 3, does not have hallucinations and ambulates without any assistive device. She lives in her own home and her granddaughter lives in her basement; her son Roe Dhillon checks on her frequently and helps her with medications and meals. Family was concerned that the patient had a UTI; she was prescribed keflex and has been taking that over the past few days. Urine culture from 03/06/23 is without growth. U/A today is without any wbcs but does have 1+ ketones. Initial workup: CBC with 5.4K WBCs, Hgb 13 CMP with Na 137, K 4.2, BUN 24, Cr 1.2, glucose 99 ammonia <9 TSH <0.02, t4 13.8 VBG pCO2 42 CK 103 UA with 1+ketones, no wbcs UDS negative CT Head/C-spine - no acute abnormality CXR - no acute cardiopulmonary process Hospital Course Hospital Course Hospital Course: Ms. Dhillon is an 87 year old female with a past medical history of mild dementia, h/o intracranial hemorrhage 2 years ago, CAD s/p FROILAN 2014, JAREK, hld, htn, hypothyroidism and bilateral hearing loss. She was found on the ground confused by family prior to admission. Has shown some mild improvement during admission. Patient is medically stable for further evaluation by geriatric psychiatry. Would benefit from being transferred to [place] for geriatric psych eval. Concern predominance of symptoms are related to dementia. Has responded well to Seroquel, slept well last night. Oriented to self this morning on exam. Intermittently cooperative. Problems addressed as follows during hospitalization. Encephalopathy Dementia Hearing impairment -Differential includes dementia, metabolic, toxic. Tox screen was negative. No signs of UTI on labs at this time. Patient has seen improvement in mentation. Started on Seroquel. At this time taking 50 mg nightly. Plan to continue. Suspect symptoms related to progressing dementia. Continuing donepezil. Patient would benefit from further evaluation with geriatric psych in [place]. Discussed case with patient's son who is her POA. He is agreeable to this evaluation. Provided her POA to us which was provided to [place] through our social studies department chair. All findings complicated by patient's hearing impairment. Communicating with whiteboard. Having some response. Continue home buspirone 5 mg twice daily Iatrogenic hyperthyroidism: Patient has a history of hypothyroidism. TSH less than 0.02. Resumed levothyroxine at half her previous dose. Continue 25 mcg daily. Hypertension: -Continuing carvedilol 312 5 mg daily Seizure disorder: Continue Keppra 500 mg twice daily per home regimen Patient medically stable. Would benefit from geriatric psych eval. Will transfer to [place] for further management. Exam Data for Last 24 hours Vital signs and Labs for Last 24 Hours: Temp Pulse Resp BP Pulse Ox O2 Del Method 97.4 F L 63 16 140/85 95 Room Air 03/10/23 07:20 03/10/23 07:20 03/10/23 07:20 03/10/23 07:20 03/10/23 04:00 03/10/23 08:00 Laboratory Results - last 24 hr 03/10/23 08:15: SARS-CoV-2 (PCR) Not detected, Influenza A Untype (PCR) Not detected, Influenza Type B (PCR) Not detected I & O for Last 24 hours: Intake & Output 03/07/23 03/08/23 03/09/23 03/10/23 23:59 23:59 23:59 23:59 Intake Total 240 / 360 1070 / 1070 0 / 0 Output Total 0 / 0 1 / Balance 240 / 360 1069 / 1069 0 / 0 Weight 56.699 kg 56.699 kg 48.308 kg Microbiology Reports for the Last 24 Hours: Microbiology 03/08/23 07:40
--- NOTE | 2023-03-10 10:07 | HMH.PTEV ---
Physical Therapy Evaluation Rehab PT IP Evaluation Start: 03/08/23 09:46 Freq: ONCE Status: Active Protocol: Document 03/10/23 09:59 PHORNE (Rec: 03/10/23 10:07 PHORNE [id number]) Subjective/History History History 87 yowf adm to [facility] with significant delerium. She has PMH of CAD, dementia, JAREK, HTN , HLD. She reportedly lives with family, but no one present at all times. She is generally independant with all mobility. She is very hard of hearing, which is a significant barrier to care. Subjective Subjective Pt with no c/o this am, Much more alert and oriented to self today. She has been quite somnolent over the past 1-2 days. New diagnosis of cancer in past 12 No months? Rehab PT IP Eval Objective Appearance Patient Behavior Appropriate Patient Orientation Person Difficulty following instructions mild Speech Pattern Clear Ambulation Patient Able to Ambulate Yes Ambulation Observation IP General Gait Pattern Observation Shuffling Step Ambulation Distance (feet) 20 Ambulation Assistive Device None Ambulation Ability Contact Guard/Hand Hold Balance Ability to Arise Able, uses arms to help Sitting Balance Steady, safe Standing Balance Steady, wide stance Dynamic Sitting Balance Ability Good Dynamic Standing Balance Ability Fair Transfers Bed Transfer Ability Minimal x 1 (25% assist) Chair Transfer Ability Contact Guard/Hand Hold Sit to Stand Bed Transfer Ability Contact Guard/Hand Hold Sit to Stand Chair Transfer Ability Contact Guard/Hand Hold Rehab PT IP prob,goals,plan Problems Date of Evaluation: 03/10/23 PT IP Problems Bed Mobility,Transfers,Gait Rehab Potential Rehab Potential Good Plan PT Intervention Plan Bed Mobility,Transfers,Gait, Therapeutic Exercise PT Plan Frequency Daily Duration LOS Discharge Goals Bed Transfer Ability Contact Guard/Hand Hold Sit to Stand Chair Transfer Ability Supervision/Stand by Ambulation Assistive Device None Ambulation Distance (feet) 30 Discharge Plan PT Discharge Plan Pt is currently most appropriate for rehab placement once medically
--- NOTE | 2023-03-10 10:32 | HMH.OTEV ---
OT Inpatient Evaluation Rehab OT IP Evaluation Start: 03/08/23 09:46 Freq: ONCE Status: Active Protocol: Document 03/10/23 09:40 MIN (Rec: 03/10/23 10:31 MIN [id number]) Rehab OT IP Assessment Subjective History Ms. Dhillon is an 87 year old female with a past medical history of mild dementia, h/o intracranial hemorrhage 2 years ago, CAD s/p FROILAN 2014, JAREK, hld, htn, hypothyroidism and bilateral hearing loss. She was found by her son earlier this morning on the ground confused. She has been confused over the past few days. Currently she speaks fluently but speaks of people in the room who are not actually there. At baseline the patient is oriented x 3, does not have hallucinations and ambulates without any assistive device. She lives in her own home and her granddaughter lives in her basement; her son Roe Dhillon checks on her frequently and helps her with medications and meals. Family was concerned that the patient had a UTI; she was prescribed keflex and has been taking that over the past few days. Urine culture from 03/06/23 is without growth. U/A today is without any wbcs but does have 1+ ketones. Patient currently lives with grand-daughter. Son checks on patient regularly. Patient independent with ADLs and fx'l mobility. Son provided care for medication mgt tr and housekeeping tasks as needed. Subjective I can get up. Instructed Patient on bed mobility from supine->sit, transfers and fx'l mobility within the room this date. Patient only oriented x1 with person. Patient had difficulty
--- NOTE | 2023-03-10 11:26 | PC.NURSE ---
called report to [facility]. pt ref morning labs and accepting nurse stated todays labs are needed prior to pt discharge
[2023-03-10 11:54] LABS: Basophils % 0.3 % (0.1-2.0); Eosinophils # 0.1 K/mm3 (0.0-0.4); Eosinophils % 2.3 % (0.1-12.0); Hematocrit 45.4 % (37.0-47.0); Hemoglobin 14.4 g/dL (12.2-16.2); Lymphocytes # 1.2 K/mm3 (0.7-4.5); Lymphocytes % 38.1 % (10-50); Mean Corpuscular HGB Conc 31.8 g/dL (31.8-35.4); Mean Corpuscular Hemoglobin 30.3 pg (27.0-31.2); Mean Corpuscular Volume 95.4 fl (81-99); Mean Platelet Volume 9.5 fl (7.4-10.4); Monocytes # 0.3 K/mm3 (0.1-1.0); Neutrophils # 1.6 K/mm3 (1.8-7.8); Neutrophils % 51.4 % (37.0-80.0); Platelet Count 142 K/mm3 (142-424); Red Blood Count 4.77 M/mm3 (4.20-5.40); White Blood Count 3.2 K/mm3 (4.8-10.8)
[2023-03-10 12:02] LABS: Chloride 103 mmol/L (98-107)
[2023-03-10 12:03] LABS: Sodium 139 mmol/L (136-145)
[2023-03-10 12:05] LABS: Alanine Aminotransferase 17 U/L (12-78); Alkaline Phosphatase 96 U/L (38-126); Aspartate Amino Transferase 28 U/L (14-36); Bilirubin,Total 0.5 mg/dl (0.2-1.3); Blood Urea Nitrogen 14 mg/dl (7-17); Carbon Dioxide 26 mmol/L (22.0-30.0); Creatinine Clearance Estimated 31 mL/min (50-200); Estimated Glomerular Filt Rate 68 ml/min (>60); GFR (African American) 82 ML/MIN (>60)
[2023-03-10 12:06] LABS: Albumin Level 3.2 g/dl (3.5-5.0); Albumin/Globulin Ratio 1.1 (1.1-1.8); Calcium 9.2 mg/dl (8.4-10.2); Glucose 60 mg/dl (74-100); Magnesium 1.8 mg/dl (1.6-2.3); Total Protein,Serum 6.2 g/dl (6.3-8.2)
--- NOTE | 2023-03-10 12:47 | PC.NURSE ---
uyen called from ambulance said they had to take patient from ED. so it will be a bit
== END 2023-03-10 15:23 ==
LOC: ER 08:08 → 2ND 09:34
PROVIDERS: Internal Medicine Adolescent Medicine; Admitting Provider Internal Medicine; Emergency Provider Emergency Medicine; PCP Emergency Medicine; Visit Provider Internal Medicine
DX: G93.40 Encephalopathy, unspecified (principal); N17.9 Acute kidney failure, unspecified; E88.89 Other specified metabolic disorders; E05.90 Thyrotoxicosis, unspecified without thyrotoxic crisis or storm; H91.93 Unspecified hearing loss, bilateral; E78.5 Hyperlipidemia, unspecified; Z95.5 Presence of coronary angioplasty implant and graft; F03.90 Unspecified dementia, unspecified severity, without behavioral disturbance, psychotic disturbance, mood disturbance, and anxiety; K21.9 Gastro-esophageal reflux disease without esophagitis; G47.33 Obstructive sleep apnea (adult) (pediatric)
CPT/HCPCS: 36415; 70450; 71045; 72125; 80053; 80305; 81001; 82140; 82550; 82803; 83605; 83735; 85025; 85610; 85730; 87040; 87636; 93005; 97163; 97165; 99285; G0378

== ENCOUNTER 2023-08-27 18:28 | Outpatient (CLI) | payer MEDICARE, OTHER, SELFPAY | END 2023-08-27 23:59 | PROVIDERS: PCP Internal Medicine; Visit Provider Internal Medicine | DX: R30.9 Painful micturition, unspecified (principal); B96.89 Other specified bacterial agents as the cause of diseases classified elsewhere; N39.0 Urinary tract infection, site not specified | CPT/HCPCS: 87086 ==

== ENCOUNTER 2024-01-05 09:42 | Emergency (ER) | payer MEDICARE, OTHER, SELFPAY ==
[2024-01-05] VITALS (8 sets, daily range): BP systolic 127–144; BP diastolic 68–92; PULSE 67–92; RESP 16–20; TEMP 36.6–36.7; O2SAT 95–96; BMI 24.1
--- NOTE | 2024-01-05 09:45 | HMH.EDGENADL ---
Discharge Plan Disposition Patient Disposition: Xfer Other Condition: Fair Chief Complaint: Altered Mental Status Prescriptions Prescriptions: No Action nitroglycerin 0.4 mg tablet, sublingual 0.4 mg SUBLINGUAL Q5M PRN (Reason: chest pain) Qty: 25 5RF Rx Instructions: until response; do not exceed 3 doses per event Fleet Glycerin Laxative 5.4 gram/5.4 mL solution 1 g MI DAILY PRN (Reason: constipation) Qty: 30 0RF polyethylene glycol 3350 [Miralax] 17 gram/dose powder 17 g PO DAILY Qty: 510 0RF docusate sodium 100 mg capsule 100 mg PO DAILY Qty: 90 2RF buspirone 5 mg tablet See Rx Instructions .ROUTE .COMPLEX Qty: 60 0RF Dose Instruction: TAKE ONE TABLET BY MOUTH TWICE DAILY FOR ANXIETY Rx Instructions: TAKE ONE TABLET BY MOUTH TWICE DAILY FOR ANXIETY levetiracetam 500 mg tablet See Rx Instructions .ROUTE .COMPLEX Qty: 60 0RF Dose Instruction: TAKE ONE TABLET BY MOUTH TWICE DAILY FOR seizures Rx Instructions: TAKE ONE TABLET BY MOUTH TWICE DAILY FOR seizures donepezil 10 mg tablet See Rx Instructions .ROUTE .COMPLEX Qty: 30 0RF Dose Instruction: TAKE ONE TABLET BY MOUTH EVERY DAY FOR memory Rx Instructions: TAKE ONE TABLET BY MOUTH EVERY DAY FOR memory oxybutynin chloride 5 mg tablet See Rx Instructions .ROUTE .COMPLEX Qty: 90 0RF Dose Instruction: TAKE ONE TABLET BY MOUTH THREE TIMES DAILY FOR FOR BLADDER problems Rx Instructions: TAKE ONE TABLET BY MOUTH THREE TIMES DAILY FOR FOR BLADDER problems levothyroxine 25 mcg tablet See Rx Instructions .ROUTE .COMPLEX Qty: 90 0RF Dose Instruction: TAKE ONE TABLET BY MOUTH EVERY DAY AT 7:00am Rx Instructions: TAKE ONE TABLET BY MOUTH EVERY DAY AT 7:00am melatonin 5 mg tablet See Rx Instructions .ROUTE .COMPLEX Qty: 90 0RF Dose Instruction: TAKE ONE TABLET BY MOUTH EVERY DAY AT BEDTIME NEEDED FOR SLEEP Rx Instructions: TAKE ONE TABLET BY MOUTH EVERY DAY AT BEDTIME NEEDED FOR SLEEP loratadine 10 mg tablet See Rx Instructions .ROUTE .COMPLEX Qty: 90 0RF Dose Instruction: TAKE ONE TABLET BY MOUTH EVERY DAY FOR allergies Rx Instructions: TAKE ONE TABLET BY MOUTH EVERY DAY FOR allergies carvedilol 3.125 mg tablet See Rx Instructions .ROUTE .COMPLEX Qty: 180 0RF Dose Instruction: TAKE ONE TABLET BY MOUTH TWICE DAILY FOR heart rate --TAKE WITH FOOD-- Rx Instructions: TAKE ONE TABLET BY MOUTH TWICE DAILY FOR heart rate --TAKE WITH FOOD-- ergocalciferol (vitamin D2) 1,250 mcg (50,000 unit) capsule See Rx Instructions .ROUTE .COMPLEX Qty: 4 0RF Dose Instruction: TAKE ONE CAPSULE BY MOUTH ONCE A WEEK ON Rx Instructions: TAKE ONE CAPSULE BY MOUTH ONCE A WEEK ON Clinical Impressions Clinical Impression: Intracranial hemorrhage, UTI (urinary tract infection), Hypokalemia, Altered mental status Instructions Patient Instructions: DI for Altered Mental Status Discharge ED Provider: Boom Diaz General Adult HPI General Chief complaint: Altered Mental Status Stated complaint: WEAKNESS Time Seen by Provider: 01/05/24 09:45 History of Present Illness HPI narrative: 88-year-old female with past medical history significant for HTN, HLD, [place] with stents, history of head bleed, dementia, presents today with family for evaluation concerning increased confusion and weakness over the past several days. Family states that patient does have dementia however they feel that her dementia has worsened at times. They report that patient has had 2 falls recently, 1 where she hit her right wrist. She did not hit her head or lose consciousness during any of the falls. She continues to tolerate oral intake and continues to make urine. She has not had any fevers and has not appeared to be in pain or have shortness of breath per family. Related Data Previous Rx's Medication Instructions Recorded nitroglycerin 0.4 mg sublingual 0.4 mg sublingual Q5M PRN chest 03/26/20 tablet pain #25 tabs glycerin (laxative) 5.4 gram/5.4 1 g MI DAILY PRN constipation #30 03/24/23 mL rectal solution (Fleet Glycerin mL Laxative) polyethylene glycol 3350 17 17 g PO DAILY #510 grams 05/07/23 gram/dose oral powder (Miralax) buspirone 5 mg tablet See Rx Instructions .Route 07/09/23 .COMPLEX #60 tabs docusate sodium 100 mg capsule 100 mg PO DAILY constipation #90 07/09/23 caps donepezil 10 mg tablet See Rx Instructions .Route 07/09/23 .COMPLEX #30 tabs levetiracetam 500 mg tablet See Rx Instructions .Route 07/09/23 .COMPLEX #60 tabs oxybutynin chloride 5 mg tablet See Rx Instructions .Route 10/07/23 .COMPLEX #90 tabs levothyroxine 25 mcg tablet See Rx Instructions .Route 11/02/23 .COMPLEX #90 tabs loratadine 10 mg tablet See Rx Instructions .Route 11/02/23 .COMPLEX #90 tabs melatonin 5 mg tablet See Rx Instructions .Route 11/02/23 .COMPLEX #90 tabs carvedilol 3.125 mg tablet See Rx Instructions .Route 12/07/23 .COMPLEX #180 tabs ergocalciferol (vitamin D2) 1,250 See Rx Instructions .Route 12/07/23 mcg (50,000 unit) capsule .COMPLEX #4 caps Allergies Allergy/AdvReac Type Severity Reaction Status Date / Time No Known Allergies Allergy Verified 09/07/23 10:08 [facility] Disclaimer: The information contained in this section may have been updated after the patient was seen, as this information can be updated by other users. Medical History Cerebral hemorrhage Coronary arteriosclerosis Dementia Dizziness Dyspnea GERD (gastroesophageal reflux disease) Hyperlipidemia Hypertensive heart disease without heart failure Pre-op evaluation Spontaneous intraparenchymal intracranial hemorrhage, acute Thyroid disease Surgical History Stented coronary artery Family History Other Family history of hyperlipidemia Family history of hypertension Social History Smoking Status: Never smoker second hand exposure: No alcohol intake: never counseling provided: none substance use type: denies use current occupational status: retired Travel in the last 8 weeks: None household members: family housing: house current occupational exposures/hazards: No caffeine: No ROS Obtained: Yes All systems reviewed & no additional complaints except as documented Physical Exam General General appearance: alert and in no apparent distress Head Head exam: atraumatic and normocephalic Eye Eye exam: Present normal appearance, PERRL and EOMI ENT ENT exam: Present normal oropharynx and mucous membranes moist Neck Neck exam: Present full ROM; Absent meningismus Respiratory Respiratory exam: Absent respiratory distress, wheezes, stridor or accessory muscle use Cardiovascular Cardiovascular exam: Present normal rhythm Abdominal Exam Abdominal exam: Present soft; Absent distention, tenderness, guarding, rebound or rigidity Extremities Exam Extremities exam: Present full ROM and tenderness (Ecchymosis and tenderness over the right wrist. Full range of motion.) Neurological Exam Neurological exam: Present alert and CN II-XII intact; Absent oriented X3 (Patient is alert and oriented to the person.) or motor sensory deficit Psychiatric Psychiatric exam: Present normal affect and normal mood Skin Skin exam: Present warm and dry Medical Decision Making Medical Records Medical records reviewed: Yes I reviewed the patient's medical records. José Inquiry Pt receiving controlled substance: No José was queried for this patient: No Vital Signs: 01/05/24 09:43 01/05/24 10:01 01/05/24 10:30 Temperature 97.8 F Temperature Source Oral Pulse Rate 90 72 Pulse Rate [Right] 92 H Respiratory Rate 16 Blood Pressure 134/68 135/72 Blood Pressure [Right Arm] 127/75 Blood Pressure Mean [Right Arm] 92 Blood Pressure Source [Right Arm] Automatic Cuff 02 Sat by Pulse Oximetry 96 96 96 Oxygen Delivery Method Room Air 01/05/24 11:12 01/05/24 11:30 01/05/24 12:00 Temperature Temperature Source Pulse Rate 76 82 81 Pulse Rate [Right] Respiratory Rate Blood Pressure 130/82 141/78 H 144/68 H Blood Pressure [Right Arm] Blood Pressure Mean [Right Arm] Blood Pressure Source [Right Arm] 02 Sat by Pulse Oximetry 95 96 95 Oxygen Delivery Method 01/05/24 12:31 Temperature Temperature Source Pulse Rate 82 Pulse Rate [Right] Respiratory Rate Blood Pressure 134/78 Blood Pressure [Right Arm] Blood Pressure Mean [Right Arm] Blood Pressure Source [Right Arm] 02 Sat by Pulse Oximetry 96 Oxygen Delivery Method Room Air Lab Data Lab Results 01/05/24 09:51: WBC 6.2, RBC 4.42, Hgb 11.6 L, Hct 36.7 L, MCV 83.2, MCH 26.4 L, MCHC 31.7 L, RDW 17.0, Plt Count 266, MPV 9.2, Neut % (Auto) 64.7, Lymph % (Auto) 27.3, [place] % (Auto) 6.6, Eos % (Auto) 0.7, Baso % (Auto) 0.7, Neut # (Auto) 4.0, Lymph # (Auto) 1.7, [place] # (Auto) 0.4, Eos # (Auto) 0.0, Baso # (Auto) 0.0, PT 10.7, INR 0.95, Sodium 138, Potassium 3.1 L, Chloride 98, Carbon Dioxide 32 H, Anion Gap 11.1, BUN 34 H, Creatinine 1.00, Estimated GFR 53 L, Est GFR ( Amer) 64, Glucose 128 H, Calcium 9.2, Magnesium 2.2, Total Bilirubin 1.0, AST 34, ALT 17, Alkaline Phosphatase 100, Troponin I < 0.01, Total Protein 8.2 D, Albumin 3.9, Globulin 4.3 H, Albumin/Globulin Ratio 0.9 L 01/05/24 10:01: Urine Color Yellow, Urine Appearance Clear, Urine pH 6.0, Ur Specific [place] 1.025, Urine Protein Trace, Urine Glucose (UA) Negative, Urine Ketones 1+, Urine Blood 2+, Urine Nitrate Negative, Urine Bilirubin 1+ A, Urine Urobilinogen 0.2, Ur Leukocyte Esterase 1+ A, Urine RBC Occasional, Urine WBC Occasional, Ur Squamous Epith Cells 3-5, Urine Bacteria Trace, Urine Yeast 3+ 01/05/24 09:51 01/05/24 09:51 Orders (Tests/Meds): ED MEDICATIONS Generic Name Dose Route Start Last Admin Trade Name Freq PRN Reason Stop Dose Admin Sodium Chloride 10 ml 01/05/24 10:28 01/05/24 10:53 Sodium Chloride 0.9% 10ml Flush Syringe IV 02/04/24 10:27 10 ml NEEDED PRN Administration Maintain IV Site Discontinued Medications Generic Name Dose Route Start Last Admin Trade Name Freq PRN Reason Stop Dose Admin Ceftriaxone Sodium 1 gm/ 100 mls @ 200 mls/hr 01/05/24 10:45 01/05/24 10:53 Sodium Chloride IV 01/15/24 10:44 Not Given Q24H CASTILLO Ceftriaxone Sodium 1 gm/ 50 mls @ 100 mls/hr 01/05/24 10:49 01/05/24 10:51 Sodium Chloride IV 01/05/24 11:18 100 mls/hr ONCE ONE Administration Potassium Chloride 40 meq 01/05/24 10:33 01/05/24 10:52 Potassium Chloride 20meq Tab PO 01/05/24 10:34 40 meq ONCE ONE Administration ORDERS Category Date Time Status CT head/brain wo con Stat Cat Scan 01/05/24 09:54 Completed Hand XR right 2 views [XR hand RT 2V] Stat Exams 01/05/24 09:54 Completed Wrist XR right 2 views [XR wrist RT 2V] Stat Exams 01/05/24 09:54 Completed CBC w/Auto Diff [Complete Blood Count Auto Diff] Stat Lab 01/05/24 09:51 Completed CMP [Comprehensive Metabolic Panel] Stat Lab 01/05/24 09:51 Completed MAG [Magnesium] Stat Lab 01/05/24 09:51 Completed PT INR [Prothrombin Time INR] Stat Lab 01/05/24 09:51 Completed Trop I [Troponin I] Stat Lab 01/05/24 09:51 Completed Troponin I Q3H Lab 01/05/24 13:00 Ordered Troponin I Q3H Lab 01/05/24 16:00 Ordered UA [Urinalysis and Microscopic] Stat Lab 01/05/24 10:01 Completed Urine Culture Stat Micro 01/05/24 10:01 Received Medical Decision Narrative: 88-year-old female with past medical history significant for HTN, HLD, [place] with stents, history of head bleed, dementia, presents today with family for evaluation concerning increased confusion and weakness over the past several days. Family states that patient does have dementia however they feel that her dementia has worsened at times. They report that patient has had 2 falls recently, 1 where she hit her right wrist. She did not hit her head or lose consciousness during any of the falls. She continues to tolerate oral intake and continues to make urine. She has not had any fevers and has not appeared to be in pain or have shortness of breath per family. On assessment she was hemodynamically stable and in no acute distress. Afebrile. Her chest was clear to station bilaterally. Her abdomen was soft and nondistended did not appear to be tender to palpation. She was moving all her extremities without difficulty. She is hard of hearing however does respond to writing and is able to tell me her name only. Otherwise exam vitals unremarkable. Differential diagnoses include not limited to worsening dementia, intracranial abnormality, UTI, electrolyte disturbance, dysrhythmia, among others. EKG was personally inter by me and was remarkable for normal sinus rhythm with a rate of 97 bpm. No ischemic changes. Labs today show a hemoglobin of 11.6. Platelets of 266. WBC of 6.2. Potassium 3.1. I have ordered for oral replacement. Initial troponin less than 0.01. Urinalysis with 1+ leukocyte Estrace, occasional RBCs and WBCs. Trace bacteria. Given that UTI could add to patient's mental status change, will order for Rocephin to begin treatment. X-ray imaging of the right wrist and hand on my informal interpretation are without any acute bony abnormalities. Radiology report confirms. CT scan of the head does show a 27 mm right occipital lobe hemorrhage. On reassessment the patient remains hemodynamically stable and in no acute distress. She is resting comfortably in bed. Blood pressure stable. I discussed ED workup and results with patient's family member at bedside as well as current plan to consult with neurosurgery to transfer to higher care facility. I did speak with Dr. Perez the MDs and discussed management and he has accepted patient to change the ED. Discussed final plan with family. They are agreeable. Patient remains stable at this time. Critical Care Critical Care Time Critical Care Time: Yes Attestation: On 01/05/24, the high probability of a clinically significant, sudden or life threatening deterioration of the following system(s) required my full and direct attention, intervention and personal management. The time I documented below is in addition to time spent performing reported procedures but includes the following listed in this critical care notation. Total Time Total Critical Care Time: 35
--- NOTE | 2024-01-05 09:49 | ECG_ITS ---
APPROVED REPORT Exam: Resting ECG HR:97 bpm ECG Measurements Heart Rate 97 AXES TX 190 P 43 QRSd 83 QRS -20 QT 391 T 43 QTc 445 Conclusion SINUS RHYTHM LOW QRS VOLTAGE IN PRECORDIAL LEADS [QRS DEFLECTION < 1.0 mV IN CHEST LEADS] POSSIBLE ANTERIOR MYOCARDIAL INFARCTION , OF INDETERMINATE AGE [30 ms Q WAVE IN V3/V4, OR R < 0.2 mV IN V4] INFERIOR MYOCARDIAL INFARCTION , PROBABLY OLD [40+ ms Q WAVE AND/OR ST/T ABNORMALITY IN II/aVF] ABNORMAL ECG UNCONFIRMED REPORT Electronically signed by : RACHAEL LAINEZ, 01/05/2024 10:49:20
--- NOTE | 2024-01-05 09:49 | PC.NURSE ---
DR LAINEZ AT BEDSIDE
--- NOTE | 2024-01-05 09:54 | XR_ITS ---
FINAL REPORT CLINICAL HISTORY: Right hand pain FINDINGS: RIGHT HAND 2 views were obtained. There is no acute fracture or dislocation. Moderate degenerative changes are present. There is soft tissue swelling, medially. IMPRESSION: Soft tissue swelling and degenerative changes with no acute bony abnormality. Reviewed, Interpreted and Dictated by Bryon Whitaker III, MD Transcribed by Radha James Authenticated and [facility]
--- NOTE | 2024-01-05 09:54 | CT_ITS ---
FINAL REPORT CLINICAL HISTORY: Worsening confusion COMPARISON: 03/08/2023 FINDINGS: Axial images of the head were obtained without contrast. Coronal reformatted images were also obtained. This study was performed with techniques to keep radiation doses as low as reasonably achievable (ALARA). Individualized dose reduction techniques using automated exposure control or adjustment of mA and/or kV according to the patient's size were employed. There is generalized age-appropriate atrophy. Periventricular low-attenuation areas are seen consistent with severe chronic ischemic changes. There is no evidence of intracranial hemorrhage. There is a 27 mm area of hemorrhage in the medial right occipital lobe. There is no evidence of acute infarct. There is no evidence of shift of the midline structures. No skull abnormality is seen on the bone window images. IMPRESSION: Atrophy and mild periventricular chronic ischemic changes. 27 mm area of hemorrhage in the medial right occipital lobe. The emergency room physician was notified of these findings at 10:57 AM on 01/05/2024 Reviewed, Interpreted and Dictated by Bryon Whitaker III, MD Transcribed by Radha James Authenticated and [facility]
--- NOTE | 2024-01-05 09:54 | XR_ITS ---
FINAL REPORT CLINICAL HISTORY: Right wrist pain FINDINGS: RIGHT WRIST 2 views were obtained. There is no acute fracture or dislocation. Moderate degenerative changes are present. There is soft tissue swelling, medially. IMPRESSION: Soft tissue swelling and degenerative changes with no acute bony abnormality. Reviewed, Interpreted and Dictated by Bryon Whitaker III, MD Transcribed by Radha James Authenticated and [facility]
--- NOTE | 2024-01-05 10:03 | PC.NURSE ---
Patient gone to CT at this time.
[2024-01-05 10:09] LABS: Microscopic, Urine URINE MICROSCOPIC (MICROSCOPIC)
[2024-01-05 10:10] LABS: Appearance,Urine CLEAR (Clear); Blood, Urine 2+ (Negative); Color,Urine YELLOW (Yellow); Glucose,Urine (UA) Negative (Negative); Ketones,Urine 1+ (Negative); Leukocyte Esterase,Urine 1+ (Negative); Nitrate,Urine Negative (Negative); Protein,Urine TRACE (Negative); Specific Gravity, Urine 1.025 (1.005-1.030); Urobilinogen,Urine 0.2 EU/dl (0.2)
[2024-01-05 10:15] LABS: Alanine Aminotransferase 17 U/L (12-78); Albumin Level 3.9 g/dl (3.5-5.0); Albumin/Globulin Ratio 0.9 (1.1-1.8); Alkaline Phosphatase 100 U/L (38-126); Anion Gap 11.1 mEq/L (5-15); Aspartate Amino Transferase 34 U/L (14-36); Blood Urea Nitrogen 34 mg/dl (7-17); Calcium 9.2 mg/dl (8.4-10.2); Carbon Dioxide 32 mmol/L (22.0-30.0); Chloride 98 mmol/L (98-107); Estimated Glomerular Filt Rate 53 ml/min (>60); GFR (African American) 64 ML/MIN (>60); Globulin 4.3 g/dL (1.3-3.2); Glucose 128 mg/dl (74-100); Magnesium 2.2 mg/dl (1.6-2.3); Potassium 3.1 mmoL/L (3.5-5.1); Sodium 138 mmol/L (136-145); Total Protein,Serum 8.2 g/dl (6.3-8.2)
[2024-01-05 10:18] LABS: Bilirubin,Urine 1+ (Negative)
[2024-01-05 10:22] LABS: Basophils % 0.7 % (0.1-2.0); Eosinophils % 0.7 % (0.1-12.0); Hematocrit 36.7 % (37.0-47.0); Hemoglobin 11.6 g/dL (12.2-16.2); Lymphocytes # 1.7 K/mm3 (0.7-4.5); Lymphocytes % 27.3 % (10-50); Mean Corpuscular HGB Conc 31.7 g/dL (31.8-35.4); Mean Corpuscular Hemoglobin 26.4 pg (27.0-31.2); Mean Corpuscular Volume 83.2 fl (81-99); Mean Platelet Volume 9.2 fl (7.4-10.4); Monocytes # 0.4 K/mm3 (0.1-1.0); Monocytes % 6.6 % (1.7-9.3); Neutrophils % 64.7 % (37.0-80.0); Platelet Count 266 K/mm3 (142-424); Red Blood Count 4.42 M/mm3 (4.20-5.40); White Blood Count 6.2 K/mm3 (4.8-10.8)
[2024-01-05 10:24] LABS: Bacteria,Urine Trace /lpf; RBC,Urine Occasional #/hpf (0-3); WBC,Urine Occasional #/hpf (0-3); Yeast,Urine 3+ /lpf
[2024-01-05 10:29] LABS: Troponin I < 0.01 ng/ml (0.00-0.034)
--- NOTE | 2024-01-05 10:42 | PC.NURSE ---
patient back in room at this time.
[2024-01-05] MEDS: CEFTRIAXONE 1 GM 1 GM in 0.9 % SODIUM CHLORIDE 50 ML IV (10:51)
[2024-01-05] MEDS: POTASSIUM CHLORIDE 20MEQ TAB 40 MEQ PO (10:52)
[2024-01-05] MEDS: SODIUM CHLORIDE 0.9% 10ML FLUSH SYRINGE 10 ML IV (10:53)
--- NOTE | 2024-01-05 11:09 | PC.NURSE ---
calling [facility] for [facility] surgery
[2024-01-05 11:59] LABS: INR 0.95 (0.9-1.1); Prothrombin Time 10.7 seconds (10.1-12.5)
--- NOTE | 2024-01-05 12:02 | PC.NURSE ---
called [facility] for update on status of speaking with [facility], she states they were back up and working there way down the line. They have received images we powered shared and will call back as soon as they can
--- NOTE | 2024-01-05 12:36 | PC.NURSE ---
SPEAKING WITH [facility]GE[facility] AT
--- NOTE | 2024-01-05 12:50 | PC.NURSE ---
PT HAS BEEN ACCEPTED TO [facility] UNDER
--- NOTE | 2024-01-05 13:09 | PC.NURSE ---
CALLED [facility]
--- NOTE | 2024-01-05 13:37 | PC.NURSE ---
Gave EMS report, pt transferred to EMS stretcher. Gave report to Nicolette Raymundo RN @ [facility]
== END 2024-01-05 13:41 | disposition other institution (70) ==
PROVIDERS: Emergency Provider Emergency Medicine; PCP Internal Medicine
DX: N39.0 Urinary tract infection, site not specified (principal); R41.82 Altered mental status, unspecified; E87.6 Hypokalemia; I62.9 Nontraumatic intracranial hemorrhage, unspecified; F03.90 Unspecified dementia, unspecified severity, without behavioral disturbance, psychotic disturbance, mood disturbance, and anxiety; E78.5 Hyperlipidemia, unspecified; K21.9 Gastro-esophageal reflux disease without esophagitis; I11.9 Hypertensive heart disease without heart failure; I25.10 Atherosclerotic heart disease of native coronary artery without angina pectoris; Z95.5 Presence of coronary angioplasty implant and graft; W19.XXXA Unspecified fall, initial encounter
CPT/HCPCS: 70450; 73100; 73120; 80053; 81001; 83735; 84484; 85025; 85610; 87086; 93005; 96365; 99285; J0696

== ENCOUNTER 2024-03-09 12:58 | Emergency (ER) | payer MEDICARE, OTHER, SELFPAY ==
[2024-03-09] VITALS (8 sets, daily range): BP systolic 123–179; BP diastolic 65–83; PULSE 70–82; RESP 14–18; TEMP 36.6–36.7; O2SAT 94–97; BMI 26.5
--- NOTE | 2024-03-09 13:37 | CT_ITS ---
FINAL REPORT TECHNIQUE: Thin section axial CT with IV contrast supplemented with multiplanar reconstruction under CT angiogram protocol. 3-D reconstructions were performed. This study was performed with techniques to keep radiation doses as low as reasonably achievable (ALARA). Individualized dose reduction techniques using automated exposure control or adjustment of mA and/or kV according to the patient's size were employed. CLINICAL HISTORY: R sided weakness, history of brain bleed stroke alert COMPARISON: None FINDINGS: The distal vertebral, basilar and distal internal carotid arteries have an unremarkable appearance. No aneurysm is seen. Major intracranial vessels are patent without significant stenosis. IMPRESSION: No major intracranial vascular abnormality identified. Reviewed, Interpreted and Dictated by Bryon Whitaker III, MD Transcribed by Justine Wilde Authenticated and [facility]
--- NOTE | 2024-03-09 13:37 | XR_ITS ---
FINAL REPORT CLINICAL HISTORY: ams, R sided weakness COMPARISON: 03/08/2023 FINDINGS: A single portable view of the chest was obtained. Moderate cardiomegaly is present. A moderate-sized hiatal hernia is present. Bibasilar opacities are noted, favor atelectasis. The bony thorax is intact. IMPRESSION: Cardiomegaly with bibasilar opacities, favor atelectasis. Moderate sized hiatal hernia. Reviewed, Interpreted and Dictated by Bryon Whitaker III, MD Transcribed by Justine Wilde Authenticated and [facility] [place] [place]
--- NOTE | 2024-03-09 13:37 | CT_ITS ---
FINAL REPORT CLINICAL HISTORY: R sided weakness, history of brain bleed stroke alert COMPARISON: 01/05/2024 FINDINGS: Axial images of the head were obtained without contrast. Coronal and sagittal reformatted images were also obtained. This study was performed with techniques to keep radiation doses as low as reasonably achievable (ALARA). Individualized dose reduction techniques using automated exposure control or adjustment of mA and/or kV according to the patient's size were employed. There is moderate generalized atrophy. There are areas of encephalomalacia in the right frontal and temporal regions. There is improvement in the right parieto-occipital hemorrhage noted on the prior CT of January 04. There is a new focus of hemorrhage in the left posterior frontal lobe white matter, which measures 18 mm in diameter. Mild ventriculomegaly is present. There is no evidence of shift of the midline structures. The patient has undergone a previous right mastoidectomy. There is soft tissue thickening present in the ethmoid air cells. IMPRESSION: New focus of hemorrhage in the left posterior frontal lobe white matter, 18 mm in diameter. No significant mass effect or midline shift is seen. Improvement in the right parieto-occipital hemorrhage noted on the prior CT of January 2023. There are areas of encephalomalacia in the right frontal and temporal lobes noted on the prior CT as well. These results were called to Dr. Perez at [facility], 03/09/2024 at 2:20 PM. Reviewed, Interpreted and Dictated by Bryon Whitaker III, MD Transcribed by Justine Wilde Authenticated and [facility]
--- NOTE | 2024-03-09 13:37 | CT_ITS ---
FINAL REPORT TECHNIQUE: Thin-section axial CT with IV contrast supplemented with multi planar reconstruction under CT angiogram protocol was performed of the neck. This study was performed technique to keep radiation doses as low as reasonably achievable, (ALARA). NASCET criteria was utilized during interpretation. CLINICAL HISTORY: R sided weakness, history of brain bleed stroke alert COMPARISON: None FINDINGS: Aortic arch: Arch shows no significant narrowing. Great vessel origins are widely patent. Right carotid: No significant stenosis is seen at the cervical common or internal carotid artery. Left carotid: No significant stenosis is seen at the cervical common or internal carotid artery. Vertebrals: The vertebral arteries are codominant. No significant stenosis is present. IMPRESSION: No evidence of significant stenosis in the cervical carotid or vertebral arteries. Reviewed, Interpreted and Dictated by Bryon Whitaker III, MD Transcribed by Justine Wilde Authenticated and [facility]
--- NOTE | 2024-03-09 13:46 | PC.NURSE ---
NIH unable to be obtained. pt will not follow commands or verbalize anything to staff. notified.
--- NOTE | 2024-03-09 13:46 | PC.NURSE ---
I was unable to complete an NIH due to pt not following commands. Pts son (POA) states she is at her normal baseline with the exception of R sided weakness. Son states she is normally able to walk without any difficulties. Pts son reports that she has days that she will follow commands and days that she will not. the son reports the pt is at her baseline with exception of the weakness.
[2024-03-09] MEDS: 0.9 % SODIUM CHLORIDE 50 ML VIAL IV (13:49)
[2024-03-09 13:50] LABS: Basophils # 0.1 K/mm3 (0-0.2); Basophils % 0.8 % (0.1-2.0); Eosinophils # 0.4 K/mm3 (0.0-0.4); Eosinophils % 5.7 % (0.1-12.0); Hematocrit 36.6 % (37.0-47.0); Hemoglobin 11.2 g/dL (12.2-16.2); Lymphocytes # 1.8 K/mm3 (0.7-4.5); Lymphocytes % 28.3 % (10-50); Mean Corpuscular HGB Conc 30.6 g/dL (31.8-35.4); Mean Corpuscular Hemoglobin 25.8 pg (27.0-31.2); Mean Corpuscular Volume 84.2 fl (81-99); Mean Platelet Volume 9.3 fl (7.4-10.4); Monocytes # 0.4 K/mm3 (0.1-1.0); Monocytes % 6.7 % (1.7-9.3); Neutrophils # 3.8 K/mm3 (1.8-7.8); Neutrophils % 58.4 % (37.0-80.0); Platelet Count 269 K/mm3 (142-424); Red Blood Count 4.34 M/mm3 (4.20-5.40); Red Cell Distribution Width 16.2 % (11.5-17.5); White Blood Count 6.4 K/mm3 (4.8-10.8)
[2024-03-09] MEDS: IOPAMIDOL-370 (76%);100ML BOTTLE 80 ML IV (13:50)
[2024-03-09] MEDS: SODIUM CHLORIDE 0.9% 10ML SYR (RAD ONLY) 10 ML IV (13:50)
[2024-03-09 13:55] LABS: Activated Partial Thrombo Time 26.1 seconds (22.8-30.6); INR 0.94 (0.9-1.1); Prothrombin Time 10.6 seconds (10.1-12.5)
--- NOTE | 2024-03-09 13:57 | PC.NURSE ---
While patient was in CT she was moving her right leg and was able to straighten her legs out. Pt's right arm was held up and dropped and patient was able to stop it from hitting her in the face. Patient was returned to room where she was able to push with her right foot and hold her right leg off the bed for a few seconds. Attempted to hand patient something for her to grab with her right hand and she would not reach for the item. (Unsure if this is due to weakness or patient not wanting to follow commands) Son had advised that patient is at her baseline, has dementia and sometimes will chose not to follow commands. No other deficits were noted at this time, patient did smile and no facial droop was noted. Unable to complete full NIHSS with a complete score, but reported findings to . Stroke Alert was called when son arrived and presented the story that he thought she was at baseline but he noticed the right sided weakness and that was new. Patient is a dementia patient and at times chooses not to follow commands. The son also advised that she will have really bad days where she presents like this and they have seen the doctor for it who advised it could be her dementia progressing and worsening.
--- NOTE | 2024-03-09 14:00 | PC.NURSE ---
fs 133
[2024-03-09 14:04] LABS: Troponin I < 0.01 ng/ml (0.00-0.034)
--- NOTE | 2024-03-09 14:04 | ECG_ITS ---
APPROVED REPORT Exam: Resting ECG HR:77 bpm ECG Measurements Heart Rate 77 AXES NH 197 P 40 QRSd 73 QRS -11 QT 393 T 60 QTc 425 Conclusion SINUS RHYTHM POSSIBLE ANTERIOR MYOCARDIAL INFARCTION , PROBABLY OLD [30 ms Q WAVE IN V3/V4, OR R < 0.2 mV IN V4] BORDERLINE ECG No STEMI Electronically signed by : EVELIA COYLE, 03/13/2024 07:37:28
--- NOTE | 2024-03-09 14:06 | ED_ITS ---
Discharge Plan Disposition Patient Disposition: Xfer Short-Term Hosp Chief Complaint: Neuro Symptoms/Deficit Prescriptions Prescriptions: No Action nitroglycerin 0.4 mg tablet, sublingual 0.4 mg SUBLINGUAL Q5M PRN (Reason: chest pain) Qty: 25 5RF Rx Instructions: until response; do not exceed 3 doses per event Fleet Glycerin Laxative 5.4 gram/5.4 mL solution 1 g IA DAILY PRN (Reason: constipation) Qty: 30 0RF polyethylene glycol 3350 [Miralax] 17 gram/dose powder 17 g PO DAILY Qty: 510 0RF docusate sodium 100 mg capsule 100 mg PO DAILY Qty: 90 2RF buspirone 5 mg tablet See Rx Instructions .ROUTE .COMPLEX Qty: 60 0RF Dose Instruction: TAKE ONE TABLET BY MOUTH TWICE DAILY FOR ANXIETY Rx Instructions: TAKE ONE TABLET BY MOUTH TWICE DAILY FOR ANXIETY levetiracetam 500 mg tablet See Rx Instructions .ROUTE .COMPLEX Qty: 60 0RF Dose Instruction: TAKE ONE TABLET BY MOUTH TWICE DAILY FOR seizures Rx Instructions: TAKE ONE TABLET BY MOUTH TWICE DAILY FOR seizures donepezil 10 mg tablet See Rx Instructions .ROUTE .COMPLEX Qty: 30 0RF Dose Instruction: TAKE ONE TABLET BY MOUTH EVERY DAY FOR memory Rx Instructions: TAKE ONE TABLET BY MOUTH EVERY DAY FOR memory oxybutynin chloride 5 mg tablet See Rx Instructions .ROUTE .COMPLEX Qty: 90 0RF Dose Instruction: TAKE ONE TABLET BY MOUTH THREE TIMES DAILY FOR FOR BLADDER problems Rx Instructions: TAKE ONE TABLET BY MOUTH THREE TIMES DAILY FOR FOR BLADDER problems levothyroxine 25 mcg tablet See Rx Instructions .ROUTE .COMPLEX Qty: 90 0RF Dose Instruction: TAKE ONE TABLET BY MOUTH EVERY DAY AT 7:00am Rx Instructions: TAKE ONE TABLET BY MOUTH EVERY DAY AT 7:00am melatonin 5 mg tablet See Rx Instructions .ROUTE .COMPLEX Qty: 90 0RF Dose Instruction: TAKE ONE TABLET BY MOUTH EVERY DAY AT BEDTIME NEEDED FOR SLEEP Rx Instructions: TAKE ONE TABLET BY MOUTH EVERY DAY AT BEDTIME NEEDED FOR SLEEP loratadine 10 mg tablet See Rx Instructions .ROUTE .COMPLEX Qty: 90 0RF Dose Instruction: TAKE ONE TABLET BY MOUTH EVERY DAY FOR allergies Rx Instructions: TAKE ONE TABLET BY MOUTH EVERY DAY FOR allergies carvedilol 3.125 mg tablet See Rx Instructions .ROUTE .COMPLEX Qty: 180 0RF Dose Instruction: TAKE ONE TABLET BY MOUTH TWICE DAILY FOR heart rate --TAKE WITH FOOD-- Rx Instructions: TAKE ONE TABLET BY MOUTH TWICE DAILY FOR heart rate --TAKE WITH FOOD-- ergocalciferol (vitamin D2) 1,250 mcg (50,000 unit) capsule See Rx Instructions .ROUTE .COMPLEX Qty: 4 0RF Dose Instruction: TAKE ONE CAPSULE BY MOUTH ONCE A WEEK ON Rx Instructions: TAKE ONE CAPSULE BY MOUTH ONCE A WEEK ON Referrals Follow up/Referrals: Provider,Referral, MD [Primary Care Provider] - See instructions Clinical Impressions Clinical Impression: Spontaneous intracranial hemorrhage, Acute right-sided muscle weakness Print Language Print Language: Burkinan Discharge ED Provider: Ceferino Perez General Adult HPI General Chief complaint: Neuro Symptoms/Deficit Stated complaint: Weakness Time Seen by Provider: 03/09/24 13:04 Mode of Arrival: EMS Source of Information: Relative and EMS Limitations: Altered Mental Status Description of Symptoms (Recalled from ER Triage Doc. by RN): I was unable to complete an NIH due to pt not following commands. Pts son (POA) states she is at her normal baseline with the exception of R sided weakness. Son states she is normally able to walk without any difficulties. Pts son reports that she has days that she will follow commands and days that she will not. the son reports the pt is at her baseline with exception of the weakness. History of Present Illness HPI narrative: Please note that above description of symptoms, in this electronic medical record under categorization of recalled from ER triage doctor by RN are reflective of an initial nursing assessment, however, is not reflective of my full history and physical exam that was personally taken and clarified. Consequentially, this preceding description of symptoms, which may include the patient's categorized chief complaint in the EMR, do not reflect my personal clinical impression, and the ultimate description of history of present illness and patient stated complaints should be deferred to this section of the note. Unless stated otherwise or congruent with this section of the note, additional signs, symptoms, or incongruence should be interpreted as inaccurate with my clinical impression. Related Data Previous Rx's ?Medication ?Instructions ?Recorded nitroglycerin 0.4 mg sublingual 0.4 mg sublingual Q5M PRN chest 03/26/20 tablet pain #25 tabs glycerin (laxative) 5.4 gram/5.4 1 g IA DAILY PRN constipation #30 09 mL rectal solution (Fleet Glycerin mL Laxative) polyethylene glycol 3350 17 17 g PO DAILY #510 grams 05/07/23 gram/dose oral powder (Miralax) buspirone 5 mg tablet See Rx Instructions .Route 07/09/23 .COMPLEX #60 tabs docusate sodium 100 mg capsule 100 mg PO DAILY constipation #90 07/09/23 caps donepezil 10 mg tablet See Rx Instructions .Route 07/09/23 .COMPLEX #30 tabs levetiracetam 500 mg tablet See Rx Instructions .Route 07/09/23 .COMPLEX #60 tabs oxybutynin chloride 5 mg tablet See Rx Instructions .Route 10/07/23 .COMPLEX #90 tabs levothyroxine 25 mcg tablet See Rx Instructions .Route 11/02/23 .COMPLEX #90 tabs loratadine 10 mg tablet See Rx Instructions .Route 11/02/23 .COMPLEX #90 tabs melatonin 5 mg tablet See Rx Instructions .Route 11/02/23 .COMPLEX #90 tabs carvedilol 3.125 mg tablet See Rx Instructions .Route 12/07/23 .COMPLEX #180 tabs ergocalciferol (vitamin D2) 1,250 See Rx Instructions .Route 01/05/24 mcg (50,000 unit) capsule .COMPLEX #4 caps Allergies Allergy/AdvReac Type Severity Reaction Status Date / Time No Known Allergies Allergy Verified 02/25/24 09:22 [facility] Disclaimer: The information contained in this section may have been updated after the patient was seen, as this information can be updated by other users. Medical History (Updated 03/09/24 @ 14:30 by Ceferino Perez MD) Deafness Dementia Thyroid disease GERD (gastroesophageal reflux disease) Spontaneous intraparenchymal intracranial hemorrhage, acute Dyspnea Dizziness Pre-op evaluation Cerebral hemorrhage Hyperlipidemia Hypertensive heart disease without heart failure Coronary arteriosclerosis Surgical History Stented coronary artery Family History Other Family history of hyperlipidemia Family history of hypertension Social History Smoking Status: Never smoker second hand exposure: No alcohol intake: never counseling provided: none substance use type: denies use current occupational status: retired Travel in the last 8 weeks: None household members: family housing: house current occupational exposures/hazards: No caffeine: No ROS Obtained: Yes All systems reviewed & no additional complaints except as documented Physical Exam General General appearance: alert and in no apparent distress Head Head exam: atraumatic and normocephalic Eye Eye exam: Present PERRL and EOMI; Absent scleral icterus or conjunctival redness Respiratory Respiratory exam: Present normal lung sounds bilaterally and respiratory distress Cardiovascular Cardiovascular exam: Present regular rate and normal rhythm Abdominal Exam Abdominal exam: Present soft; Absent distention, tenderness or guarding Extremities Exam Extremities exam: Present normal inspection and other (uncooperative with exam) Neurological Exam Neurological exam: Present alert, normal gait and other (GCS 9, difficult to obtain NIHSS due to dementia and deafness) Medical Decision Making Medical Records Medical records reviewed: Yes I reviewed the patient's medical records. José Inquiry Pt receiving controlled substance: No José was queried for this patient: No Vital Signs: 03/09/24 13:15 03/09/24 13:30 03/09/24 13:54 Temperature 98 F Temperature Source Axillary Pulse Rate 70 74 Pulse Rate [Left] 77 Respiratory Rate 14 Blood Pressure 142/77 H 179/82 H Blood Pressure [Right Arm] 126/71 Blood Pressure Mean [Right Arm] 89 Blood Pressure Source [Right Arm] Automatic Cuff Blood Pressure Position [Right Arm] Sitting 02 Sat by Pulse Oximetry 95 95 96 Oxygen Delivery Method Room Air Room Air Room Air 03/09/24 14:00 Temperature Temperature Source Pulse Rate 73 Pulse Rate [Left] Respiratory Rate Blood Pressure 167/83 H Blood Pressure [Right Arm] Blood Pressure Mean [Right Arm] Blood Pressure Source [Right Arm] Blood Pressure Position [Right Arm] 02 Sat by Pulse Oximetry 97 Oxygen Delivery Method Room Air Lab Data Lab Results 03/09/24 13:12: WBC 6.4, RBC 4.34, Hgb 11.2 L, Hct 36.6 L, MCV 84.2, MCH 25.8 L, MCHC 30.6 L, RDW 16.2, Plt Count 269, MPV 9.3, Neut % (Auto) 58.4, Lymph % (Auto) 28.3, [place] % (Auto) 6.7, Eos % (Auto) 5.7, Baso % (Auto) 0.8, Neut # (Auto) 3.8, Lymph # (Auto) 1.8, [place] # (Auto) 0.4, Eos # (Auto) 0.4, Baso # (Auto) 0.1, PT 10.6, INR 0.94, APTT 26.1, Magnesium 2.0, Troponin I < 0.01 03/09/24 13:12 Orders (Tests/Meds): ED MEDICATIONS Generic Name Dose Route Start Last Admin Trade Name Freq PRN Reason Stop Dose Admin Nicardipine HCl 25 mg/ Sodium 250 mls @ 50 mls/hr 03/09/24 14:19 Chloride IV 04/08/24 14:18 .Q5H CASTILLO Protocol Discontinued Medications Generic Name Dose Route Start Last Admin Trade Name Freq PRN Reason Stop Dose Admin Iopamidol 80 ml 03/09/24 13:48 03/09/24 13:50 Iopamidol-370 (76%);100ml Bottle IV 03/09/24 13:49 80 ml ONCE ONE Administration Sodium Chloride 50 ml 03/09/24 13:48 03/09/24 13:49 0.9 % Sodium Chloride 50 Ml Vial IV 03/09/24 13:49 50 ml ONCE ONE Administration Sodium Chloride 10 ml 03/09/24 13:48 03/09/24 13:50 Sodium Chloride 0.9% 10ml Syr (Rad Only) IV 03/09/24 13:49 10 ml ONCE ONE Administration ORDERS Category Date Time Status CT angio head Stat Cat Scan 03/09/24 13:[address] angio neck Stat Cat Scan 03/09/24 13:[address] head/brain wo con Stat Cat Scan 03/09/24 13:37 Taken CXR --portable [XR chest portable] Stat Exams 03/09/24 13:37 Taken CBC w/Auto Diff [Complete Blood Count Auto Diff] Stat Lab 03/09/24 13:12 Completed MAG [Magnesium] Stat Lab 03/09/24 13:12 Completed PT INR [Prothrombin Time INR] Stat Lab 03/09/24 13:12 Completed PTT [Activated Partial Thrombo Time] Stat Lab 03/09/24 13:12 Completed Trop I [Troponin I] Stat Lab 03/09/24 13:12 Completed Troponin I Q3H Lab 03/09/24 16:45 Ordered Troponin I Q3H Lab 03/09/24 19:45 Ordered UA [Urinalysis and Microscopic] Stat Lab 03/09/24 14:25 Ordered Medical Decision Narrative: 88-year-old female history of dementia, intracranial hemorrhage, deafness, hypertension, hyperlipidemia presenting with weakness. Patient's here presenting to tell story. States that patient was normal until about an hour and a half ago. Was getting out of the truck, was completely weak on her right side. This is abnormal for her. Earlier in the day was ambulating without issue. Brought her in for further evaluation. No other information readily available. History obtained the patient's . On arrival, patient mildly hypertensive 180s over 80s. NIH unable to be obtained secondary to patient's dementia, deafness, uncooperation. Cardiac exam normal, coags normal. Patient's troponin negative. EKG independently interpreted sinus rhythm 77 beats a minute. No ST or T wave changes concerning for acute ischemia. IA 197, QRS 73, QTc 425. Independent rotation of imaging demonstrates new left frontal lobe hemorrhage with no mass effect. CTA head and neck without acute intracranial or extracranial vascular abnormality. Images sent to [facility] neurosurgery, recommended transfer given intracranial hemorrhage. Patient started on Cardene drip for systolic blood pressure goals less than 140. Because patient high risk for clinical decompensation if discharged, deemed appropriate for transfer and inpatient admission. Results were relayed to patient who voiced understanding and patient was agreeable to transfer, inpatient admission, and management. Patient was graciously accepted and transferred to [facility] for further definitive management, under Dr. Cates. Associate Professor Of Church Music disclaimer Much of this encounter note is an electronic oil treater spoken language to printed text. Electronic oil treater of the spoken language may permit errors. Although I have reviewed the note, some errors may still exist. Critical Care Critical Care Time Critical Care Time: Yes (neuro) Attestation: On 03/09/24, the high probability of a clinically significant, sudden or life threatening deterioration of the following system(s) required my full and direct attention, intervention and personal management. The time I documented below is in addition to time spent performing reported procedures but includes the following listed in this critical care notation. Total Time Total Critical Care Time: 60
--- NOTE | 2024-03-09 14:20 | PC.NURSE ---
Dr. Perez speaking with Dr. Johnson at [facility]
--- NOTE | 2024-03-09 14:21 | PC.NURSE ---
Dr. Perez speaking with [facility]
[2024-03-09 14:33] LABS: Microscopic, Urine URINE MICROSCOPIC (MICROSCOPIC)
[2024-03-09] MEDS: NICARDIPINE HCL 25 MG in 0.9 % SODIUM CHLORIDE 240 ML 50 MG IV (14:36)
--- NOTE | 2024-03-09 14:43 | PC.NURSE ---
Report called to Venkata NICK at [facility]
--- NOTE | 2024-03-09 14:46 | PC.NURSE ---
consent obtained for heart cath from pts POA @ bedside.
[2024-03-09 14:59] LABS: Appearance,Urine CLEAR (Clear); Bilirubin,Urine Negative (Negative); Blood, Urine TRACE-I (Negative); Color,Urine YELLOW (Yellow); Glucose,Urine (UA) Negative (Negative); Ketones,Urine Negative (Negative); Leukocyte Esterase,Urine TRACE (Negative); Nitrate,Urine Negative (Negative); Protein,Urine Negative (Negative); Urobilinogen,Urine 0.2 EU/dl (0.2)
[2024-03-09 15:51] LABS: Chloride 107 mmol/L (98-107)
[2024-03-09 15:52] LABS: Albumin Level 3.7 g/dl (3.5-5.0); Potassium 3.9 mmoL/L (3.5-5.1); Sodium 138 mmol/L (136-145)
[2024-03-09 15:52] LABS: Bacteria,Urine Trace /lpf; RBC,Urine Occasional #/hpf (0-3); WBC,Urine Occasional #/hpf (0-3)
[2024-03-09 15:55] LABS: Alanine Aminotransferase 19 U/L (12-78); Albumin/Globulin Ratio 1.1 (1.1-1.8); Alkaline Phosphatase 135 U/L (38-126); Anion Gap 8.9 mEq/L (5-15); Aspartate Amino Transferase 29 U/L (14-36); Bilirubin,Total 0.6 mg/dl (0.2-1.3); Blood Urea Nitrogen 11 mg/dl (7-17); Calcium 8.5 mg/dl (8.4-10.2); Carbon Dioxide 26 mmol/L (22.0-30.0); Creatinine Clearance Estimated 42 mL/min (50-200); Estimated Glomerular Filt Rate 79 ml/min (>60); GFR (African American) 96 ML/MIN (>60); Globulin 3.3 g/dL (1.3-3.2); Glucose 128 mg/dl (74-100)
== END 2024-03-09 15:38 | disposition short-term general hospital (02) ==
PROVIDERS: Emergency Provider Emergency Medicine
DX: I62.9 Nontraumatic intracranial hemorrhage, unspecified (principal); R41.82 Altered mental status, unspecified; I11.9 Hypertensive heart disease without heart failure; E07.9 Disorder of thyroid, unspecified; F03.90 Unspecified dementia, unspecified severity, without behavioral disturbance, psychotic disturbance, mood disturbance, and anxiety; K21.9 Gastro-esophageal reflux disease without esophagitis; E78.5 Hyperlipidemia, unspecified; I25.10 Atherosclerotic heart disease of native coronary artery without angina pectoris
CPT/HCPCS: 70450; 70496; 70498; 71045; 80053; 81001; 83735; 84484; 85025; 85610; 85730; 93005; 96365; 99291; Q9967